=== PATIENT | female | born 1980 | race Caucasian/White ===

== ENCOUNTER 2019-12-06 15:39 | Outpatient (REF) | payer OTHER, SELFPAY ==
[2019-12-06 17:08] LABS: COVID-19 Test Negative (Negative)
== END 2019-12-06 15:40 | disposition home or self-care (01) ==
LOC: HO.LAB 15:39
PROVIDERS: Visit Provider Internal Medicine
DX: Z20.828 Contact with and (suspected) exposure to other viral communicable diseases (principal)
CPT/HCPCS: 87635

== ENCOUNTER 2019-12-23 11:00 | Outpatient (REF) | payer OTHER, SELFPAY ==
[2019-12-23 11:20] LABS: COVID-19 Test Negative (Negative)
== END 2019-12-23 11:01 | disposition home or self-care (01) ==
LOC: HO.LAB 11:00
PROVIDERS: PCP Pediatrics; Visit Provider Internal Medicine
DX: Z20.828 Contact with and (suspected) exposure to other viral communicable diseases (principal)
CPT/HCPCS: 87635; C9803

== ENCOUNTER 2020-03-02 08:49 | Outpatient (REF) | payer OTHER, SELFPAY ==
[2020-03-02 09:12] LABS: COVID-19 Test Negative (Negative)
== END 2020-03-02 08:50 | disposition home or self-care (01) ==
LOC: HO.EMPCOV 08:49
PROVIDERS: PCP Pediatrics; Visit Provider Internal Medicine
DX: Z20.822 Contact with and (suspected) exposure to COVID-19 (principal)
CPT/HCPCS: 36415; 87635; C9803

== ENCOUNTER 2020-07-28 14:45 | Outpatient (REF) | payer BC, SELFPAY ==
[2020-07-28 15:28] LABS: MANUAL DIFF FLAG NO
[2020-07-28 15:34] LABS: Basophils Percent Auto 0.5 % (0-2); Eosinophils Percent Auto 0.5 % (0-4); Hematocrit 40.5 % (37-47); Hemoglobin 13.8 g/dl (12.0-16.0); Imm Gran Abs Auto 0.02 X10*3/uL (0.00-0.03); Imm Gran Pct Auto 0.5 % (0.0-0.4); Lymphocytes Absolute Auto 1.4 X10*3/uL (1.2-4.9); Lymphocytes Percent Auto 35.1 % (20-40); Mean Corpuscular HGB Conc 34.1 g/dl (31.0-35.0); Mean Corpuscular Hemoglobin 30.4 pg (27.0-33.0); Mean Corpuscular Volume 89.2 fL (80-98); Mean Platelet Volume 10.7 fL (9.4-12.3); Monocytes Absolute Auto 0.3 X10*3/uL (0.1-1.2); Monocytes Percent Auto 7.9 % (2-11); Neutrophils Absolute Auto 2.3 X10*3/uL (2.0-8.3); Neutrophils Percent Auto 55.5 % (45-73); Platelet Count 231 X10*3/uL (160-400); Red Blood Count 4.54 X10*6/uL (4.20-5.50); Red Cell Distribution Width 12.4 % (11.0-16.0); White Blood Count 4.1 X10*3/uL (4.8-10.8)
[2020-07-28 16:00] LABS: Alanine Aminotransferase 32 U/L (0-31); Albumin Level 4.2 g/dL (3.5-5.0); Alkaline Phosphatase 50 U/L (39-117); Aspartate Amino Transferase 29 U/L (5-31); Bilirubin Direct < 0.2 mg/dL (0.0-0.5); Bilirubin Total 0.3 mg/dL (0.0-1.0); Blood Urea Nitrogen 12 mg/dL (9-16); C Reactive Protein 0.62 mg/dL (< or = 0.50); Estimated Glomerular Filt Rate > 60; Total Protein 6.9 g/dL (6.5-8.0)
[2020-07-28 16:32] LABS: Carcinoembryonic Antigen < 0.50 ng/mL
[2020-07-28 17:56] LABS: Erythrocyte Sedimentation Rate 13 MM/HR (0-20)
== END 2020-07-28 14:46 | disposition home or self-care (01) ==
LOC: HO.LAB 14:45
PROVIDERS: PCP Pediatrics; Visit Provider Internal Medicine
DX: R10.9 Unspecified abdominal pain (principal); R19.7 Diarrhea, unspecified; R16.0 Hepatomegaly, not elsewhere classified
CPT/HCPCS: 36415; 80076; 82105; 82378; 82565; 84520; 85025; 85652; 86140

== ENCOUNTER 2020-08-10 18:02 | Outpatient (REF) | payer BC, SELFPAY | END 2020-08-10 18:03 | disposition home or self-care (01) | LOC: HO.LNP 18:02 | PROVIDERS: Visit Provider Internal Medicine | DX: R10.9 Unspecified abdominal pain (principal); R16.0 Hepatomegaly, not elsewhere classified; R19.7 Diarrhea, unspecified | CPT/HCPCS: 87045; 87046; 87329; 87493; 89055 ==

== ENCOUNTER 2020-08-21 15:57 | Outpatient (REF) | payer BC, SELFPAY ==
--- NOTE | ~2020-08-21 | MR_ITS ---
EXAMINATION: MR ABDOMEN WITHOUT AND WITH CONTRAST CLINICAL INFORMATION: Liver mass. COMPARISON: Previous MRI October 2014, CT of the abdomen and pelvis October 2014 and abdominal ultrasound December 2007 TECHNIQUE: MR abdomen was performed without and with use of 5.5 mL intravenous Gadavist gadolinium contrast. Postcontrast images are performed in multiphase dynamic sequences. Imaging was performed in 3 planes. FINDINGS: LUNG BASES: The visualized lung bases are unremarkable. LIVER, GALLBLADDER, AND BILIARY TREE: The liver is normal in size, shape and contour. There is a 4.5 x 4.3 x 3.5 cm lesion in the medial segment of the left lobe of the liver. This is slightly low signal on T1-weighted sequences, similar in signal to the liver on T2-weighted sequences. This demonstrates early arterial phase enhancement and washout. There is again question of a nonenhancing central scar. This is unchanged in size and enhancement characteristics compared to 2015 exam. Again, this probably represents FNH or adenoma. There are 3 small cysts seen in the left lobe of the liver measuring 1.4 cm and 1.3 x 1.8 cm in the lateral segment of the left lobe and 6 mm in the medial segment of the left lobe. No other focal liver lesion is seen. The gallbladder is contracted. There is no biliary duct dilatation. The spleen is unremarkable. The pancreas is unremarkable. The adrenal glands and kidneys are unremarkable. Visualized bowel is unremarkable. No ascites or adenopathy is seen. No hernia is seen. The lung apices are clear. There are bilateral breast implants. Bony structures are unremarkable. MR/MR abdomen wo/w con IMPRESSION: Stable lesion in the medial segment of the left lobe of the liver probably representing FNH or adenoma. Small liver cysts.
== END 2020-08-21 15:58 | disposition home or self-care (01) ==
LOC: HO.MRI 15:57
PROVIDERS: PCP Pediatrics; Visit Provider Internal Medicine
DX: R16.0 Hepatomegaly, not elsewhere classified (principal)
CPT/HCPCS: 74183; A9585

== ENCOUNTER 2020-10-14 08:42 | Day surgery (SDC) | payer BC, SELFPAY ==
--- NOTE | 2020-09-29 08:10 | P.CONAN_ITS ---
Documented by User: Mónica Sims NP 09/29/20 08:11 HPI - Anesthesia Eval Consult details Narrative: 40yo F for Upper Endoscopy and Colonoscopy PMFSH Past Medical History Medical History Anxiety Depression Fibromyalgia Hiatal hernia Liver mass, left lobe Bustillos syndrome Surgical History Surgical History History of tonsillectomy and adenoidectomy Hx of breast augmentation Hx of section Hx of colonoscopy Hx of esophagogastroduodenoscopy Social History Social History Alcohol intake: current Alcohol intake frequency: 0-2 drinks per day Alcohol type: wine Patient Tobacco Use Status: Never used Tobacco Use of substances other than those prescribed or required for medical reasons: Yes Substance Use Type Other:: CBD gummies Substance Use Frequency: Occasionally Are you DNR?: No Advance Directives: No Advance Directives Information Provided: No Meds Allergies Allergy/AdvReac Type Severity Reaction Status Date / Time codeine [CODEINE] Allergy Unknown VOMITING Verified 10/14/20 09:25 Home Medications Medication Instructions Recorded Confirmed Last Taken Type Fish Oil 09/23/20 Unknown History Probiotic 09/23/20 Unknown History Vitamin C 09/23/20 Unknown History acetaminophen 500 mg tablet 1,000 mg PO Q6H PRN 09/23/20 09/23/20 Unknown History bupropion HCl 150 mg tablet,12 hr 1 tab PO BID 09/23/20 09/23/20 Unknown History sustained-release desogestrel 0.15 mg-ethinyl 1 tab PO DAILY 09/23/20 09/23/20 Unknown History estradiol 0.03 mg tablet (Apri) hydroxyzine HCl 25 mg tablet 1 tab PO TID PRN 09/23/20 09/23/20 Unknown History ibuprofen 09/23/20 09/23/20 Unknown History multivitamin 1 tab PO DAILY 09/23/20 09/23/20 Unknown History omeprazole 20 mg capsule,delayed 1 cap PO DAILY 09/23/20 09/23/20 Unknown History release Exam Exam Date and Time: September 29, 2020 0810 Pertinent Lab Results Pertinent Lab Results: Laboratory Tests 07/28/20 07/28/20 15:05 15:05 WBC 4.1 L Hgb 13.8 Hct 40.5 Plt Count 231 BUN 12 Creatinine 0.80 Assessment and Plan Assessment Anesthesia Assessment: Chart Reviewed Documented by User: Ana Ovalle MD 10/14/20 10:34 [facility] Past Medical History Medical History Anxiety Depression Fibromyalgia Hiatal hernia Liver mass, left lobe Bustillos syndrome Surgical History Surgical History History of tonsillectomy and adenoidectomy Hx of breast augmentation Hx of section Hx of colonoscopy Hx of esophagogastroduodenoscopy History of Problems with Anesthesia: No Social History Social History Alcohol intake: current Alcohol intake frequency: 0-2 drinks per day Alcohol type: wine Patient Tobacco Use Status: Never used Tobacco Use of substances other than those prescribed or required for medical reasons: Yes Substance Use Type Other:: CBD gummies Substance Use Frequency: Occasionally Are you DNR?: No Advance Directives: No Advance Directives Information Provided: No Meds Allergies Allergy/AdvReac Type Severity Reaction Status Date / Time codeine [CODEINE] Allergy Unknown VOMITING Verified 10/14/20 09:25 Home Medications Medication Instructions Recorded Confirmed Last Taken Type Fish Oil 09/23/20 Unknown History Probiotic 09/23/20 Unknown History Vitamin C 09/23/20 Unknown History acetaminophen 500 mg tablet 1,000 mg PO Q6H PRN 09/23/20 09/23/20 Unknown History bupropion HCl 150 mg tablet,12 hr 1 tab PO BID 09/23/20 09/23/20 Unknown History sustained-release desogestrel 0.15 mg-ethinyl 1 tab PO DAILY 09/23/20 09/23/20 Unknown History estradiol 0.03 mg tablet (Apri) hydroxyzine HCl 25 mg tablet 1 tab PO TID PRN 09/23/20 09/23/20 Unknown History ibuprofen 09/23/20 09/23/20 Unknown History multivitamin 1 tab PO DAILY 09/23/20 09/23/20 Unknown History omeprazole 20 mg capsule,delayed 1 cap PO DAILY 09/23/20 09/23/20 Unknown History release Exam Airway Mallampati Class: I TM Dist: >3cm Neck ROM: Full Loose/Missing/Broken Teeth: No Heart: RRR Lungs: CTA Assessment and Plan Assessment Anesthesia Assessment: Anesthesia Plan Discussed Final Anesthetic Review History of Problems with Anesthesia: No NPO: Yes ASA Class: II Final Preanesthetic Review: Meds/Allgs Chart Reviewed, Consent Obtained/Reviewed and Anes Risks/Benef Reviewed Patient Risk: Low Procedure Risk: Intermediate Anesthetic Plan Anesthetic Plan: MAC: Disposition: Standard PACU
[2020-10-14 09:14] VITALS: BP 118/81; PULSE 92; RESP 18; TEMP 37.1; O2SAT 99; BMI 23.6
[2020-10-14 09:15] LABS: UPreg QC Valid YES; Urine Pregnancy NEGATIVE (NEGATIVE)
[2020-10-14] MEDS: Lactated Ringers 1,000 ML 100 ML IVCONT (09:24)
[2020-10-14 11:00] VITALS: BP 100/62; PULSE 72; RESP 18; TEMP 36.2; O2SAT 100
--- NOTE | 2020-10-14 11:05 | PM.OP ---
Brief Operative Note Date of Service: 10/14/20 Pre-op diagnosis: + Bustillos syndrome genetic test, Screening Post-op diagnosis: other (Hiatal hernia, Internal hemorrhoids) Procedure: EGD and Colonoscopy to the cecum and TI Surgeon: Rogelio Elaine Anesthesia: MAC Was an Atomic Physics Teacher used for this Procedure?: No Estimated blood loss (mL): 0 Pathology: none sent Condition: stable Disposition: PACU
[2020-10-14 11:15] VITALS: BP 113/70; PULSE 66; RESP 16; TEMP 36.3; O2SAT 99
--- NOTE | 2020-10-14 11:32 | OP_ITS ---
SURGEON: Rogelio Elaine MD INDICATIONS: The patient presents for evaluation of positive genetic testing for Bustillos syndrome, colorectal cancer screening, and family history of uterine cancer and head and neck cancer. Full consent has been obtained from her for both procedures, including risks of bleeding and perforation. PREOPERATIVE DIAGNOSIS: POSTOPERATIVE DIAGNOSIS: PROCEDURE PERFORMED: Esophagogastroduodenoscopy and colonoscopy to the cecum and terminal ileum. ESTIMATED BLOOD LOSS: COMPLICATIONS: ANESTHESIA: Monitored anesthesia care. ASSISTANTS: SPECIMENS: PREOPERATIVE DIAGNOSES: Genetic testing positive for Bustillos syndrome and colorectal cancer screening. POSTOPERATIVE DIAGNOSES: Genetic testing positive for Bustillos syndrome and colorectal cancer screening, hiatal hernia, normal major papilla, internal hemorrhoids. DESCRIPTION OF PROCEDURE: The patient was placed in the left lateral decubitus position. The Olympus therapeutic video duodenoscope was passed in the posterior oropharynx and upper esophagus. The scope entered into the stomach and was advanced to pylorus. The duodenum was cannulated to the descending portion. The region of the major papilla was visualized and appeared completely normal. There was no sign of any mass nor ulceration. The scope was then withdrawn back into the stomach and then withdrawn from the patient. The Olympus video gastroscope was passed in the posterior oropharynx and upper esophagus under direct vision. The scope was passed slowly into the distal esophagus. The gastroesophageal junction appeared normal at 35 cm. There was a small hiatal hernia. The scope was advanced to pylorus and duodenum was cannulated to the descending portion. The duodenum including the bulb appeared normal without mass or ulceration. The scope was withdrawn back into the stomach. The gastric antrum and body appeared normal with good peristalsis. The scope was retroflexed visualizing the proximal stomach carefully, which appeared normal, without any sign of mass or ulceration. The scope was straightened out and withdrawn back into the esophagus. The esophageal mucosa appeared normal. The scope was withdrawn from the patient. She was turned around for colonoscopy. The digital rectal exam revealed no abnormalities. The Olympus video pediatric colonoscope was entered into the rectum and advanced easily to the cecum. Once in the cecum, I did identify normal-appearing cecal pouch with appendiceal orifice and a normal-appearing ileocecal valve. The terminal ileum was cannulated and appeared normal. Scope was withdrawn back in the colon. The entire cecum and ileocecal valve appeared normal. The scope was slowly withdrawn assessing all mucosal surfaces carefully. Preparation was excellent. I did not visualize any sign of polyps, colitis, nor angiodysplasia. In the rectum, scope was retroflexed visualizing internal hemorrhoids, but no other pathology. The rectal mucosa appeared normal. The scope was straightened out and withdrawn from the patient. She tolerated both procedures well and was returned to the recovery area in stable condition. IMPRESSION: 1. Normal major papilla. 2. Small hiatal hernia. 3. Internal hemorrhoids. PLAN: I would recommend a repeat upper endoscopy and colonoscopy in 5 years. Her recent MRI of the liver revealed a stable known hepatic lesion. As such, I do not think she will need any further imaging of her liver given the stability of the liver lesion for many years now. She will see me in the interim on a p.r.n. basis. MD FELIPA Devine/VERO / [phone]
== END 2020-10-14 12:16 | disposition home or self-care (01) ==
PROVIDERS: Nurse Practitioner; PCP Pediatrics; Visit Provider Internal Medicine
PROC: (CPT 45378; principal; 2020-10-14 09:50)
DX: Z12.11 Encounter for screening for malignant neoplasm of colon (principal); K64.8 Other hemorrhoids; K59.4 Anal spasm; R19.7 Diarrhea, unspecified; Z15.09 Genetic susceptibility to other malignant neoplasm; R10.9 Unspecified abdominal pain; N94.10 Unspecified dyspareunia; K76.89 Other specified diseases of liver; K44.9 Diaphragmatic hernia without obstruction or gangrene; F32.9 Major depressive disorder, single episode, unspecified; Z79.899 Other long term (current) drug therapy; Z80.49 Family history of malignant neoplasm of other genital organs; Z80.8 Family history of malignant neoplasm of other organs or systems
CPT/HCPCS: 45378; 43235; 81025; J2250; J2405

== ENCOUNTER → 2021-06-15 14:45 | Outpatient (BNVA) | payer OTHER, SELFPAY | PROVIDERS: PCP Pediatrics; Visit Provider Internal Medicine | DX: Z13.89 Encounter for screening for other disorder (principal) | CPT/HCPCS: 99202 ==

== ENCOUNTER → 2021-06-16 11:10 | Outpatient (BNVA) | payer OTHER, SELFPAY | PROVIDERS: PCP Pediatrics; Visit Provider Physician Assistant | DX: Z13.89 Encounter for screening for other disorder (principal) | CPT/HCPCS: 99213 ==

== ENCOUNTER → 2021-06-21 08:36 | Outpatient (BNVA) | payer OTHER, SELFPAY | PROVIDERS: PCP Pediatrics; Visit Provider Internal Medicine | DX: Z13.89 Encounter for screening for other disorder (principal) | CPT/HCPCS: 99213 ==

== ENCOUNTER → 2021-07-16 13:56 | Outpatient (BNVA) | payer OTHER, SELFPAY | PROVIDERS: PCP Pediatrics; Visit Provider Internal Medicine | DX: Z13.89 Encounter for screening for other disorder (principal) | CPT/HCPCS: 99213 ==

== ENCOUNTER 2021-07-22 08:00 | Outpatient (RCR) | payer OTHER, SELFPAY ==
--- NOTE | 2021-06-28 14:31 | MHC.PT.EP ---
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 REPORTS PAIN IMMEDIATELY L UT WITH SOME PARESTHESIA L PINKY FINGER (WHICH HAS SINCE RESOLVED). Pt REPORTS OVERALL BETTER AT THIS TIME, BUT STILL SOME LIMITED CERV ROM AND FEELS LIKE SHE HAS A PINCHED NERVE . 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 PRESENTS TO PT WITH LIMITED END RANGE CERVICAL ROM, PAIN NECK/UPPER BACK WITH DECREASED UPPER BODY STRENGTH. SHOULD BENEFIT FROM PT TO ADDRESS THESE ISSUES. Frequency and Duration: The patient will be seen 2X/WK X 4 WKS Short Term Goals: 1. INCREASED POSTURE AWARENESS AND AWARENESS NECK CARE 2. Pt TO PERFORM 2-3 TASKS WITH PROPER BODY MECH 3. RTW FD Mcc Goals: 1. I HEP WITH DC EX PLAN 2. INCREASED CERV ROM 5 DEGREES T/O 3. DECREASED NECK PAIN AT LEAST 50% WITH ADLS 4. NO PARESTHESIA REPORTED Treatment Plan: Modalities to reduce pain, spasms and effusion. Manual therapy to restore motion and function. Therapeutic exercise to improve strength and flexibility. Neuromuscular re-education for posture and balance. Therapeutic activities to return to functional activities of daily living. Electronically signed by: QING LEIVA PT Please sign and return to therapist. Thank you for your referral.
--- NOTE | 2021-09-28 13:24 | MHC.PT.DC ---
[facility] [place] Office [place] [facility] [place] [facility] [address] Sqaib Malhotra [address] [phone] F: [phone] F: [phone] F: [phone] F: [phone] Physical Therapy Discharge Report Diagnosis: L TRAPEZIUS STRAIN Date of Surgery: NA Date of Evaluation: 06/28/21 Date of Discharge: 09/28/21 Treatments to Date: 5 Cancellations to Date: No Shows to Date: Discharge Status: Independent with HEP Patient Elected to Stop Recommend MD Follow-up Discharge Summary: PER ASSESSMENT FROM LAST PT SESSION ON 07/22/21 BY DEANDRE MCKEON PT 'Pt BENEFITTED FROM MOD VC/ TC TO ENHANCE HER SELF AWARENESS AND SELF CORRECTION FOR 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 IT HAS BEEN OVER 2 MONTHS SINCE LAST APPT FOR HER UT, SO WILL DC WITH HOME PROGRAM AT THIS TIME Electronically signed by: QING LEIVA PT Please sign and return to therapist. Thank you for your referral.
== END 2021-09-28 13:25 | disposition home or self-care (01) ==
LOC: HO.PT 08:00
PROVIDERS: Visit Provider Internal Medicine
DX: S46.812D Strain of other muscles, fascia and tendons at shoulder and upper arm level, left arm, subsequent encounter (principal)
CPT/HCPCS: 97014; 97110; 97140; 97161

== ENCOUNTER 2021-07-25 09:33 | Emergency (ER) | payer BC, SELFPAY ==
--- NOTE | ~2021-07-25 | CT_ITS ---
EXAMINATION: CT ANGIOGRAM HEAD CT ANGIOGRAM NECK CLINICAL INFORMATION: Occipital headache. Neck pain. Bilateral arm numbness. COMPARISON: None available. TECHNIQUE: Initial noncontrast outside sales representative imaging of the head and neck was performed. Noncontrast head CT was also performed. Test bolus sequences followed by intravenous administration 70 mL of Omnipaque 350. Helical imaging was performed in the axial plane from the aortic arch to the skull vertex. Delayed postcontrast imaging of the head was also performed. The data was processed at the operating room surgical technologist's workstation for generation of MIP sequences. Angled MIPs and volume rendered reformatted images were also generated at an offline 3D workstation. Stenoses are assessed in accordance with NASCET criteria unless otherwise indicated. This CT examination was performed using dose optimization techniques as appropriate, variously including the following: *Automated exposure control. *Adjustment of mA and/or kV according to patient size (this includes techniques or standardized protocols for targeted exams where dose is matched to indication/reason for exam; i.e. extremities or head). *Use of iterative reconstruction technique. DLP: 2039 mGy-cm FINDINGS: CT Head: There is no evidence of acute intracranial hemorrhage or edematous territorial infarction. There is no abnormal attenuation within the brain parenchyma. Murry-white matter differentiation is preserved. The ventricles are normal in size and configuration. No evidence for obstructive hydrocephalus. The cerebellar tonsils are positioned at the level the foramen magnum. No abnormal mass effect or midline shift. No extra-axial fluid collections. No pathologic intra-axial enhancement or regional oligemia. No acute soft tissue or osseous abnormalities. Mild mucosal thickening of the paranasal sinuses. The mastoid air cells and middle ear cavities are clear. CT Neck: The thyroid gland and remaining cervical soft tissues are within normal limits. Advanced degenerative disc disease at C5-C6. Moderate degenerative disc disease at C4-C5. Associated disc-osteophyte complex formation with superimposed disc herniations. There appears to be mild to moderate spinal canal stenoses at C4-C5 and C5-C6. Facet and uncovertebral joint arthropathy leads osseous encroachment on the neural foramina at C5-C6. CT Upper Chest: The visualized lung apices and upper mediastinum are within normal limits. Neck CTA: Aortic Arch: Normal contour and caliber. Classic 3 vessel branching pattern of the aortic arch. Great Vessel Origins: No significant stenosis of the branch origins. Right Common Carotid Artery: No focal stenosis or occlusion. Cervical Right Internal Carotid Artery: Normal opacification without focal stenosis or occlusion. Left Common Carotid Artery: No focal stenosis or occlusion. Cervical Left Internal Carotid Artery: Normal opacification without focal stenosis or occlusion. Cervical Right Vertebral Artery: No focal stenosis or occlusion. Cervical Left Vertebral Artery: Mildly dominant. No focal stenosis or occlusion. Brain CTA: Intracranial Internal Carotid Arteries: No focal stenosis or occlusion. Right Anterior Cerebral Artery: Normal A1 segment. Normal opacification of the distal HONORIO segments. Left Anterior Cerebral Artery: Normal A1 segment. Normal opacification of the distal HONORIO segments. Anterior Communicating Artery: Normal. Right Middle Cerebral Artery: Normal M1 segment of the MCA without focal stenosis or occlusion. Normal arborization of the distal segments. Left Middle Cerebral Artery: Normal M1 segment of the MCA without focal stenosis or occlusion. Normal arborization of the distal segments. Right Vertebral Artery: Normal V4 segment. Normal opacification of the proximal segments of the posterior inferior cerebellar artery. Left Vertebral Artery: Normal V4 segment. Normal opacification of the proximal segments of the posterior inferior cerebellar artery. Basilar Artery: Normal without focal stenosis or occlusion. Normal appearance of the proximal superior cerebellar arteries. Right Posterior Cerebral Artery: Normal P1 segment. Normal opacification of the distal SHADE CUTTER segments. Left Posterior Cerebral Artery: Normal P1 segment. Normal opacification of the distal SHADE CUTTER segments. Right dominant transverse/sigmoid sinuses. The left-sided transverse/sigmoid sinuses are diminutive. Otherwise, normal opacification of the superior sagittal, straight, transverse, and sigmoid sinuses. CT/CT angio head neck IMPRESSION: 1. No evidence of acute intracranial hemorrhage or edematous territorial infarction. 2. CTA of the head and neck without proximal occlusion or flow-limiting stenosis. 3. 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 Most notably, there appear to be mild to moderate spinal canal stenoses at C4-C5 and C5-C6.
[2021-07-25 09:36] VITALS: BP 147/89; PULSE 99; RESP 16; TEMP 36.8; O2SAT 99; BMI 23.2
[2021-07-25 10:09] LABS: MANUAL DIFF FLAG NO
[2021-07-25 10:12] LABS: Basophils Percent Auto 0.6 % (0-2); Eosinophils Absolute Auto 0.1 X10*3/uL (0.0-0.4); Eosinophils Percent Auto 1.4 % (0-4); Hematocrit 38.7 % (37.0-47.0); Hemoglobin 12.9 g/dl (12.0-16.0); Imm Gran Abs Auto 0.02 X10*3/uL (0.00-0.03); Imm Gran Pct Auto 0.4 % (0.0-0.4); Lymphocytes Absolute Auto 1.7 X10*3/uL (1.2-4.9); Lymphocytes Percent Auto 34.2 % (20-40); Mean Corpuscular HGB Conc 33.3 g/dl (31.0-35.0); Mean Corpuscular Hemoglobin 30.4 pg (27.0-33.0); Mean Corpuscular Volume 91.1 fL (80.0-98.0); Monocytes Absolute Auto 0.3 X10*3/uL (0.1-1.2); Monocytes Percent Auto 6.1 % (2-11); Neutrophils Absolute Auto 2.9 x10*3/uL (2.0-8.3); Neutrophils Percent Auto 57.3 % (45-73); Platelet Count 242 X10*3/uL (160-400); Red Blood Count 4.25 X10*6/uL (4.20-5.50); Red Cell Distribution Width 12.8 % (11.0-16.0); White Blood Count 5.1 X10*3/uL (4.8-10.8)
[2021-07-25 10:29] LABS: Anion Gap 12 (12-20); Blood Urea Nitrogen 18 mg/dL (9-16); Calcium 9.4 mg/dL (8.4-10.2); Carbon Dioxide 26 mmol/L (22-29); Chloride 104 mmol/L (96-108); Estimated Glomerular Filt Rate > 60; Glucose Random 97 mg/dL (60-115); Potassium 4.4 mmol/L (3.3-5.1); Sodium 138 mmol/L (135-145)
[2021-07-25 10:35] LABS: INTERNATIONAL NORM RATIO 1.1 (0.9-1.1); Prothrombin Time 12.5 SEC (9.9-13.0)
[2021-07-25 10:48] VITALS: BP 126/81; PULSE 84; RESP 16; O2SAT 100
[2021-07-25] MEDS: iohexoL 350 MG/ML 100 ML INFUS..BTL IV (11:21)
--- NOTE | 2021-07-25 11:39 | ED_ITS ---
HPI - Headache General Chief Complaint: Headache Stated Complaint: Neck Pain Numbness Time Seen by Provider: 07/25/21 09:46 Source: patient Mode of arrival: ambulatory History of Present Illness HPI Narrative: 41-year-old female with a past medical history of anxiety, depression, fibromyalgia, Bustillos syndrome, presenting to the ED complaining of posterior headache/neck pain with associated numbness/tingling down bilateral arms > left and right foot worsening since Monday. 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 Reports symptoms initiated after chiropractor visit where they are cracking her neck. Denies vision change/loss, weakness, urinary incontinence/retention, direct injury/trauma MD elicited complaint: headache Related Data Home Medications Medication Instructions Recorded Confirmed Fish Oil 09/23/20 Probiotic 09/23/20 Vitamin C 09/23/20 acetaminophen 500 mg tablet 1,000 mg PO Q6H PRN Pain, Mild 09/23/20 09/23/20 bupropion HCl 150 mg tablet,12 hr 1 tab PO BID 09/23/20 09/23/20 sustained-release desogestrel 0.15 mg-ethinyl 1 tab PO DAILY 09/23/20 09/23/20 estradiol 0.03 mg tablet (Apri) hydroxyzine HCl 25 mg tablet 1 tab PO TID PRN anxiety 09/23/20 09/23/20 ibuprofen 09/23/20 09/23/20 multivitamin 1 tab PO DAILY 09/23/20 09/23/20 omeprazole 20 mg capsule,delayed 1 cap PO DAILY 09/23/20 09/23/20 release Previous Rx's Medication Instructions Recorded cyclobenzaprine 5 mg tablet 5 mg PO Q8H PRN pain (scale score 07/25/21 7-10) 5 days #14 tabs lidocaine 5 % topical patch 1 patch topical DAILY PRN pain #30 07/25/21 (Lidoderm) ea Allergies Allergy/AdvReac Type Severity Reaction Status Date / Time codeine [CODEINE] Allergy Unknown VOMITING Verified 10/14/20 09:25 Review of Systems Review of Systems: Constitutional: No Fever, No Chills, No Fatigue, No Malaise ENT/Mouth: No Ear Pain, No Nasal Congestion, No Sinus Pain, No Hoarseness, No sore throat, No Rhinorrhea, No Swallowing Difficulty Eyes: No Eye Pain, No Swelling, No Redness, No Vision Changes Cardiovascular: No Chest Pain, No SOB, No Edema, No Palpitations Respiratory: No Cough, No Sputum, No Dyspnea Gastrointestinal: No Nausea, No Vomiting, No Diarrhea, No Constipation, No Abdominal pain Genitourinary: No Dysuria, No Urinary Frequency, No Hematuria, No Urinary Incontinence/retention, No Flank Pain Musculoskeletal: No joint pain, No Myalgias, No Joint Swelling Skin: No Skin Lesions, No rash Neuro: No Weakness, + Numbness, + Paresthesias, No Loss of Consciousness, No Dizziness, +o Headache Yes all other systems are reviewed and are negative Neurologic: Denies Abnormal speech present [facility] Past Medical History Attestation statement: The following information was validated with the patient. Medical History Anxiety Depression Fibromyalgia Hiatal hernia Liver mass, left lobe Bustillos syndrome Surgical History History of tonsillectomy and adenoidectomy Hx of breast augmentation Hx of section Hx of colonoscopy Hx of esophagogastroduodenoscopy Social History Social History Alcohol intake: current Alcohol intake frequency: 0-2 drinks per day Alcohol type: wine Patient Tobacco Use Status: Never used Tobacco Advance Directives: No Advance Directives Information Provided: No Physical Exam Vital Signs: Vital Signs: Last Vital Signs Temp 98.3 F 07/25/21 09:36 Pulse 84 07/25/21 10:48 Resp 16 07/25/21 10:48 BP 126/81 07/25/21 10:48 Pulse Ox 100 07/25/21 10:48 O2 Del Method 07/25/21 10:48 BMI result Body Mass Index 23.2 Const: General: cooperative, healthy appearing and no acute distress Orientation/consciousness: patient oriented x3 Limitations: no limitations HEENT: Head: Yes normal to inspection and Yes atraumatic Ears: hearing grossly normal bilaterally General nose exam: Normal external nose present Face and sinus: Yes normal facial exam Eyes: General: appearance normal, both eyes and all related structures EOM: EOMs intact bilaterally Neck: Other: No midline cervical spinous tenderness. Bilateral paraspinal and bilateral trapezius muscle tenderness to palpation Neck: Yes normal visual inspection, Yes full ROM, Yes no meningeal signs, No anterior neck swelling and No torticollis Resp: Effort & Inspection: normal respiratory effort and no respiratory distress Auscultation: clear to auscultation bilaterally Cardio: Rate: regular rate Heart sounds: S1 normal heart sound present and S2 normal heart sound present Peripheral pulses: radial pulses present GI: Inspection: Yes normal to inspection : General: Yes no CVA tenderness Back/Spine/Pelvis: Other: No midline thoracic/lumbar spinous tenderness/step-off or deformity Back: no CV A tenderness Skin: Rashes: no rashes Wounds: no wounds Neuro: General: patient oriented x3, gait normal, tone normal, moves all extremities, no meningeal signs, no focal motor deficits and CN's II-XI intact bilaterally Cognition (Neuro): normal cognition Speech: No Abnormal speech present Gait exam (Neuro): Normal gait present Motor exam (neuro): 5/5 motor strength present throughout Extrem: General: Yes normal to inspection Course Course Course Narrative: -1144--labs unremarkable CT angio head neck IMPRESSION: 1. No evidence of acute intracranial hemorrhage or edematous territorial infarction. 2. CTA of the head and neck without proximal occlusion or flow-limiting stenosis. 3. 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 Most notably, there appear to be mild to moderate spinal canal stenoses at C4-C5 and C5-C6. >> results discussed with patient including worrisome signs and symptoms and strict return precautions & needed close follow-up with PCP MDM - Headache MDM Narrative Medical decision making narrative: 41-year-old female with a past medical history of anxiety, depression, fibromyalgia, Bustillos syndrome, presenting to the ED complaining of posterior headache/neck pain with associated numbness/tingling down bilateral arms > left and right foot worsening since Monday. On exam vital signs stable, NAD, no midline spinous tenderness throughout, no focal neuro deficits. Concern for cervical dissection vs MSK pain/strain vs radiculopathy. Lower concern for fracture Plan: Labs, head and neck CTA Differential Diagnosis Differential diagnosis: Likely migraine and headache Medical Records Attestation: I reviewed the patient's medical records. Lab Data Attestation: I reviewed the patient's lab results. Result diagrams: 07/25/21 10:03 07/25/21 10:03 Labs: Lab Results 07/25/21 07/25/21 07/25/21 Range/Units 10:03 10:03 10:03 WBC 5.1 (4.8-10.8) X10*3/uL RBC 4.25 (4.20-5.50) X10*6/uL Hgb 12.9 (12.0-16.0) g/dl Hct 38.7 (37.0-47.0) % MCV 91.1 (80.0-98.0) fL MCH 30.4 (27.0-33.0) pg MCHC 33.3 (31.0-35.0) g/dl RDW 12.8 (11.0-16.0) % Plt Count 242 (160-400) X10*3/uL MPV 10.0 (9.4-12.3) fL Immature Gran % (Auto) 0.4 (0.0-0.4) % Neut % (Auto) 57.3 (45-73) % Lymph % (Auto) 34.2 (20-40) % Esmeralda % (Auto) 6.1 (2-11) % Eos % (Auto) 1.4 (0-4) % Baso % (Auto) 0.6 (0-2) % Lymph # (Auto) 1.7 (1.2-4.9) X10*3/uL Esmeralda # (Auto) 0.3 (0.1-1.2) X10*3/uL Eos # (Auto) 0.1 (0.0-0.4) X10*3/uL Baso # (Auto) 0.0 (0.0-0.2) X10*3/uL Abs Immat Gran (auto) 0.02 (0.00-0.03) X10*3/uL Absolute Neuts (auto) 2.9 (2.0-8.3) x10*3/uL Absolute Nucleated RBC 0.000 (0.0-0.012) X10*3/uL Nucleated RBC % (auto) 0.0 (0.0-0.2) /100WBC PT 12.5 (9.9-13.0) SEC INR 1.1 (0.9-1.1) Sodium 138 (135-145) mmol/L Potassium 4.4 (3.3-5.1) mmol/L Chloride 104 (96-108) mmol/L Carbon Dioxide 26 (22-29) mmol/L Anion Gap 12 (12-20) BUN 18 H (9-16) mg/dL Creatinine 0.75 (0.5-1.4) mg/dL Estim Creat Clear Calc 76.0 Estimated GFR > 60 Random Glucose 97 (60-115) mg/dL Calcium 9.4 (8.4-10.2) mg/dL Discharge Plan Discharge Clinical Impression: Arthropathy of cervical spine, Paresthesia Patient Disposition: Home, Self-Care Instructions: Neck Pain (ED) Additional Instructions: A CT scan does not show any evidence of intracranial hemorrhage were vessel occlusion. You do have some [id number] canal stenosis. Please follow-up with her primary care doctor, and spine as needed Continue taking previously prescribed naproxen. In addition take Flexeril which is a muscle relaxer, take at night as it makes you drowsy, do not drive, drink alcohol, or operate machinery while taking. You may also apply Lidoderm patch es. Rest. Apply heat. If symptoms persist or worsen please return to the emergency department [facility] [address] [place] [address] [phone] Prescriptions: New lidocaine [Lidoderm] 5 % adhesive patch,medicated 1 patch topical DAILY MDD remove after 12 hours PRN (Reason: pain) Qty: 30 0RF Rx Instructions: leave on most painful area for up to 12 hrs cyclobenzaprine 5 mg tablet 5 mg PO Q8H PRN (Reason: pain (scale score 7-10)) 5 Days Qty: 14 0RF No Action multivitamin Tablet 1 tab PO DAILY bupropion HCl 150 mg tablet sustained-release 12 hr 1 tab PO BID desogestrel-ethinyl estradiol [Apri] 0.15-0.03 mg tablet 1 tab PO DAILY acetaminophen 500 mg Tablet 1,000 mg PO Q6H PRN (Reason: Pain, Mild) omeprazole 20 mg capsule,delayed release(DR/EC) 1 cap PO DAILY hydroxyzine HCl 25 mg tablet 1 tab PO TID PRN (Reason: anxiety) Fish Oil Probiotic Vitamin C ibuprofen Referrals: Jean Barger MD [Primary Care Provider] - Stand Alone Forms: Work/School Release
== END 2021-07-25 13:17 | disposition home or self-care (01) ==
PROVIDERS: Physician Assistant; Emergency Provider Emergency Medicine; PCP Pediatrics
DX: M47.812 Spondylosis without myelopathy or radiculopathy, cervical region (principal); R20.2 Paresthesia of skin; R51.9 Headache, unspecified
CPT/HCPCS: 36415; 70496; 70498; 80048; 85025; 85610; 99284; Q9967

== ENCOUNTER → 2021-08-31 09:12 | Outpatient (BNVA) | payer OTHER, SELFPAY | PROVIDERS: PCP Obstetrics & Gynecology; Visit Provider Internal Medicine | DX: Z13.89 Encounter for screening for other disorder (principal) | CPT/HCPCS: 99213 ==

== ENCOUNTER 2021-11-03 08:00 | Outpatient (RCR) | payer BC, SELFPAY | END 2021-11-10 08:21 | disposition home or self-care (01) | LOC: HO.PT 08:00 | PROVIDERS: PCP Obstetrics & Gynecology; Visit Provider Obstetrics & Gynecology | DX: R10.2 Pelvic and perineal pain (principal) | CPT/HCPCS: 97112; 97140; 97161 ==

== ENCOUNTER → 2021-12-08 10:42 | Outpatient (BNVA) | payer OTHER, SELFPAY | PROVIDERS: PCP Obstetrics & Gynecology; Visit Provider Physician Assistant | DX: Z13.89 Encounter for screening for other disorder (principal) | CPT/HCPCS: 99203 ==

== ENCOUNTER 2022-11-28 12:49 | Emergency (ER) | payer BC, SELFPAY ==
[2022-11-28 13:03] VITALS: BP 148/97; PULSE 119; RESP 18; TEMP 36.8; O2SAT 98; BMI 20.4
--- NOTE | 2022-11-28 13:20 | ECG_ITS ---
Test Reason : ANXIETY Blood Pressure : / mmHG Vent. Rate : 097 BPM Atrial Rate : 097 BPM P-R Int : 128 ms QRS Dur : 080 ms QT Int : 358 ms P-R-T Axes : 056 084 060 degrees QTc Int : 454 ms Normal sinus rhythm Normal ECG No previous ECGs available Referred By: Viji Porter Electronically Signed By:LEIGH ORDAZ MD
--- NOTE | 2022-11-28 13:20 | ED_ITS ---
HPI - General Adult General Chief complaint: General Medical Stated complaint: multiple complaints Time Seen by Provider: 11/28/22 13:04 Source: patient Mode of arrival: ambulatory Limitations: no limitations History of Present Illness HPI narrative: A 42-year-old female came in for evaluation of multiple symptoms. Symptoms started for the past 4 days, complaining of anxiety, generalized body ache, metallic taste in her mouth, fatigue, nausea, weight loss, decreased p.o. intake, and dry mouth, facial numbness. Patient just recovered from right breast cancer and received radiation therapy, also Patient took Flagyl 3 weeks ago for BV and she thinks her symptoms are related to the medication. No sick contacts, no recent travel, no headache, no weakness, no numbness. Patient declines alcohol or drug abuse. No SI or HI, no hallucination. Related Data Home Medications Medication Instructions Recorded Confirmed Fish Oil 09/23/20 Probiotic 09/23/20 Vitamin C 09/23/20 acetaminophen 500 mg tablet 1,000 mg PO Q6H PRN Pain, Mild 09/23/20 09/23/20 bupropion HCl 150 mg tablet,12 hr 1 tab PO BID 09/23/20 09/23/20 sustained-release desogestrel 0.15 mg-ethinyl 1 tab PO DAILY 09/23/20 09/23/20 estradiol 0.03 mg tablet (Apri) hydroxyzine HCl 25 mg tablet 1 tab PO TID PRN anxiety 09/23/20 09/23/20 ibuprofen 09/23/20 09/23/20 multivitamin 1 tab PO DAILY 09/23/20 09/23/20 omeprazole 20 mg capsule,delayed 1 cap PO DAILY 09/23/20 09/23/20 release Previous Rx's Medication Instructions Recorded cyclobenzaprine 5 mg tablet 5 mg PO Q8H PRN pain (scale score 07/25/21 7-10) 5 days #14 tabs lidocaine 5 % topical patch 1 patch topical DAILY PRN pain #30 07/25/21 (Lidoderm) ea lorazepam 0.5 mg tablet (Ativan) 0.5 mg PO DAILY PRN anxiety #10 11/28/22 tabs Allergies Allergy/AdvReac Type Severity Reaction Status Date / Time codeine [CODEINE] Allergy Unknown VOMITING Verified 10/14/20 09:25 Review of Systems 2 Review of Systems: All other systems are reviewed and are negative Constitutional: Reports as per HPI and Reports no additional constitutional complaints Eyes: Reports as per HPI and Reports no additional eye complaints Reports system reviewed and no additional complaints, except as documented Cardiovascular: Reports as per HPI and Reports no additional cardiovascular complaints Respiratory: Reports as per HPI and Reports no additional respiratory complaints Gastrointestinal: Reports as per HPI and Reports no additional gastrointestinal complaints Genitourinary: Reports no additional female genitourinary complaints Musculoskeletal: Reports no additional musculoskeletal complaints Skin/Breast: Reports system reviewed and no additional complaints, except as docu Psychiatric: Reports no additional psychiatric complaints Endocrine: Reports no additional endocrine complaints Hematologic/Lymphatic: Reports no additional hematologic/lymphatic complaints Allergic/Immunologic: Reports no additional allergic/immunologic complaints Reports system reviewed and no additional complaints, except as documented and Reports Abnormal speech present REPLACED BY [facility] Past Medical History Medical History Hiatal hernia Liver mass, left lobe Bustillos syndrome Fibromyalgia Anxiety Depression Surgical History Hx of section History of tonsillectomy and adenoidectomy Hx of breast augmentation Hx of colonoscopy Hx of esophagogastroduodenoscopy Social History Social History Alcohol intake: current Alcohol intake frequency: 0-2 drinks per day Alcohol type: wine Patient Tobacco Use Status: Never used Tobacco Advance Directives: No Advance Directives Information Provided: Yes Physical Exam ED Vital Signs: Vital Signs - 24 hr 11/28/22 13:03 11/28/22 13:38 11/28/22 14:02 Temperature 98.2 F Pulse Rate 119 H 90 97 Respiratory Rate 18 18 16 Blood Pressure 148/97 H 129/83 Pulse Oximetry 98 99 100 Oxygen Delivery Method Room Air Room Air Room Air BMI result Body Mass Index 20.4 Vital signs have been reviewed and appear to be correct. Blood pressure elevated. Heart rate normal. Respiratory rate normal. Temperature normal. Oxygen saturation normal. Appearance: Alert. Oriented X3. No acute distress. Head: Normal external exam. Normocephalic. Atraumatic. No Singh signs noted. No raccoon eyes noted Eyes: PERRLA. EOMI. Conjunctiva and sclera normal. Eyelids normal. ENT: TM's Normal. Pharynx normal. Uvula midline. Moist mucous membranes. No trismus noted. No drooling noted. No muffled voice noted. Neck: Normal inspection. Neck supple. FROM. No adenopathy. Thyroid Normal. No meningeal signs. No neck mass noted. CVS: Normal heart rate and rhythm. Heart sound normal. No murmurs noted. Pulses normal throughout. Respiratory: No respiratory distress. Painless inspiration. Breath sounds normal. No wheezes/rales/rhonchi noted. Chest nontender. No accessory muscle usage noted or decreased air movement noted. Abdomen: Soft and nontender. Bowel sounds normal in all 4 quadrants. No distention noted. No organomegaly noted. No visible injury noted. Back: No CVA tenderness. Full range of motion noted. Skin: Skin warm and dry. Normal skin color. Normal skin turgor. No rashes/lesions/lacerations noted. Extremities: No lower extremity edema. Extremities exhibit normal range of motion. Extremities nontender. Neuro: Oriented X 3. Cranial nerve exam: II-XII are grossly intact No motor deficit. No sensory deficit. Reflexes normal. Patient Orientation: Person, Place, Time and Situation, okay hygiene and grooming. Fair eye contact, attentive, no tics or tremors. Level of Consciousness: Awake, Appropriate and Alert Patient Behavior: Appropriate, Guarded, Cooperative and Anxious Mood Description: Constricted, Blunted and Apprehensive Affect Description: Constricted, Blunted and Apprehensive Patient Cognition Impaired: No Ability to Follow Directions: Excellent Speech Pattern: Clear, Appropriate and Spontaneous Speech, nonpressured, spontaneous with regular rate and rhythm, normal volume and prosody. No dysarthria. Memory Description: Intact, Immediate Intact and Short Term Intact Hallucinations: None Delusions: Not Present Thought Process: Intact Thought Content: positive for Intact, positive for Logical, denies Suicidal Ideation and denies Homicidal Ideation. Depressive Symptoms: Not present. Judgement and Insight: Limited but adequate. Course Course Course Narrative: A 42-year-old female history of right breast cancer which is recently recovered from, patient feels anxious about recurrence and symptoms that the patient developed after using Flagyl 3 weeks ago. Physical and neuro exam is unremarkable in the emergency department, labs and UA is also unremarkable patient was reassured and was instructed to follow-up with her PCP for further evaluation. Medications Administered Discontinued Medications Generic Name Dose Route Start Last Admin Trade Name Freq PRN Reason Stop Dose Admin Sodium Chloride 1,000 mls @ 999 mls/hr 11/28/22 13:19 11/28/22 13:34 Ns IV 11/28/22 14:19 999 mls/hr .Q1H1M ONE Administration Lorazepam 1 mg 11/28/22 13:19 11/28/22 13:37 Lorazepam 2 Mg/Ml Vial IVPUSH 11/28/22 13:20 1 mg ONCE ONE Administration Medical Decision Making Differential Diagnosis Differential Diagnoses: The differential diagnosis associated with the presentation includes (Electrolyte abnormality, severe anemia, anxiety.) Admission/Observation Consideration of admission/observation: Escalation of care including admission/observation considered Lab Data MDM Lab Attestation statement: I reviewed the patient's lab results. 11/28/22 13:33 11/28/22 13:33 Labs: Lab Results 11/28/22 11/28/22 Range/Units 13:33 14:00 WBC 5.0 (4.8-10.8) X10*3/uL RBC 4.78 (4.20-5.50) X10*6/uL Hgb 14.5 (12.0-16.0) g/dl Hct 42.6 (37.0-47.0) % MCV 89.1 (80.0-98.0) fL MCH 30.3 (27.0-33.0) pg MCHC 34.0 (31.0-35.0) g/dl RDW 11.9 (11.0-16.0) % Plt Count 211 (160-400) X10*3/uL MPV 10.2 (9.4-12.3) fL Immature Gran % (Auto) 0.2 (0.0-0.4) % Neut % (Auto) 75.6 H (45-73) % Lymph % (Auto) 17.1 L (20-40) % Braxton % (Auto) 6.5 (2-11) % Eos % (Auto) 0.2 (0-4) % Baso % (Auto) 0.4 (0-2) % Lymph # (Auto) 0.9 L (1.2-4.9) X10*3/uL Braxton # (Auto) 0.3 (0.1-1.2) X10*3/uL Eos # (Auto) 0.0 (0.0-0.4) X10*3/uL Baso # (Auto) 0.0 (0.0-0.2) X10*3/uL Abs Immat Gran (auto) 0.01 (0.00-0.03) X10*3/uL Absolute Neuts (auto) 3.8 (2.0-8.3) x10*3/uL Absolute Nucleated RBC 0.000 (0.0-0.012) X10*3/uL Nucleated RBC % (auto) 0.0 (0.0-0.2) /100WBC Sodium 140 (135-145) mmol/L Potassium 4.2 (3.3-5.1) mmol/L Chloride 103 (96-108) mmol/L Carbon Dioxide 28 (22-29) mmol/L Anion Gap 13 (12-20) BUN 10 (9-16) mg/dL Creatinine 0.74 (0.5-1.4) mg/dL Estim Creat Clear Calc 76.2 Estimated GFR > 60 Random Glucose 99 (60-115) mg/dL Calcium 9.6 (8.4-10.2) mg/dL Total Bilirubin 0.5 (0.0-1.0) mg/dL Direct Bilirubin 0.2 (0.0-0.5) mg/dL AST 25 (5-31) U/L ALT 23 (0-31) U/L Alkaline Phosphatase 45 (39-117) U/L Total Protein 7.5 (6.5-8.0) g/dL Albumin 4.5 (3.5-5.0) g/dL Lipase 28 (8-78) U/L Urine Color Yellow Urine Appearance Clear Urine pH 7.0 (5.0-9.0) Ur Specific [place] <= 1.005 (1.005-1.025) Urine Protein Negative (Neg-Trace) mg/dL Urine Glucose (UA) Negative (Negative) mg/dL Urine Ketones Negative (Negative) mg/dL Urine Blood Negative (Negative) Urine Nitrite Negative (Negative) Ur Leukocyte Esterase Negative (Negative) Urine Test NEGATIVE (NEGATIVE) Urine Opiates Screen Not Detected (Not Detect) Urine Fentanyl Screen Not Detected (Not Detect) Ur Barbiturates Screen Not Detected (Not Detect) Ur Phencyclidine Scrn Not Detected (Not Detect) Ur Amphetamines Screen Not Detected (Not Detect) U Benzodiazepines Scrn Not Detected (Not Detect) Urine Cocaine Screen Not Detected (Not Detect) U Marijuana (THC) Screen Not Detected (Not Detect) Discharge Plan Discharge Clinical Impression: Anxiety Patient Disposition: Home, Self-Care Instructions: Anxiety (ED) Prescriptions: New lorazepam [Ativan] 0.5 mg tablet 0.5 mg PO DAILY PRN (Reason: anxiety) Qty: 10 0RF No Action multivitamin Tablet 1 tab PO DAILY bupropion HCl 150 mg tablet sustained-release 12 hr 1 tab PO BID desogestrel-ethinyl estradiol [Apri] 0.15-0.03 mg tablet 1 tab PO DAILY acetaminophen 500 mg Tablet 1,000 mg PO Q6H PRN (Reason: Pain, Mild) omeprazole 20 mg capsule,delayed release(DR/EC) 1 cap PO DAILY hydroxyzine HCl 25 mg tablet 1 tab PO TID PRN (Reason: anxiety) Fish Oil Probiotic Vitamin C ibuprofen lidocaine [Lidoderm] 5 % adhesive patch,medicated 1 patch topical DAILY MDD remove after 12 hours PRN (Reason: pain) Qty: 30 0RF Rx Instructions: leave on most painful area for up to 12 hrs cyclobenzaprine 5 mg tablet 5 mg PO Q8H PRN (Reason: pain (scale score 7-10)) 5 Days Qty: 14 0RF
[2022-11-28] MEDS: 0.9 % Sodium Chloride 1,000 ML 999 ML IV (13:34)
[2022-11-28] MEDS: LORazepam 2 MG/ML VIAL 1 MG IVPUSH (13:37)
[2022-11-28 13:38] VITALS: PULSE 90; RESP 18; O2SAT 99
[2022-11-28 13:38] LABS: MANUAL DIFF FLAG NO
[2022-11-28 13:41] LABS: Basophils Percent Auto 0.4 % (0-2); Eosinophils Percent Auto 0.2 % (0-4); Hematocrit 42.6 % (37.0-47.0); Hemoglobin 14.5 g/dl (12.0-16.0); Imm Gran Abs Auto 0.01 X10*3/uL (0.00-0.03); Imm Gran Pct Auto 0.2 % (0.0-0.4); Lymphocytes Absolute Auto 0.9 X10*3/uL (1.2-4.9); Lymphocytes Percent Auto 17.1 % (20-40); Mean Corpuscular Hemoglobin 30.3 pg (27.0-33.0); Mean Corpuscular Volume 89.1 fL (80.0-98.0); Mean Platelet Volume 10.2 fL (9.4-12.3); Monocytes Absolute Auto 0.3 X10*3/uL (0.1-1.2); Monocytes Percent Auto 6.5 % (2-11); Neutrophils Absolute Auto 3.8 x10*3/uL (2.0-8.3); Neutrophils Percent Auto 75.6 % (45-73); Platelet Count 211 X10*3/uL (160-400); Red Blood Count 4.78 X10*6/uL (4.20-5.50); Red Cell Distribution Width 11.9 % (11.0-16.0)
[2022-11-28 13:57] LABS: Alanine Aminotransferase 23 U/L (0-31); Albumin Level 4.5 g/dL (3.5-5.0); Alkaline Phosphatase 45 U/L (39-117); Anion Gap 13 (12-20); Aspartate Amino Transferase 25 U/L (5-31); Bilirubin Direct 0.2 mg/dL (0.0-0.5); Bilirubin Total 0.5 mg/dL (0.0-1.0); Blood Urea Nitrogen 10 mg/dL (9-16); Calcium 9.6 mg/dL (8.4-10.2); Carbon Dioxide 28 mmol/L (22-29); Chloride 103 mmol/L (96-108); Creatinine Clr Calc Pharmacy 76.2; Estimated Glomerular Filt Rate > 60; Glucose Random 99 mg/dL (60-115); Lipase 28 U/L (8-78); Potassium 4.2 mmol/L (3.3-5.1); Sodium 140 mmol/L (135-145); Total Protein 7.5 g/dL (6.5-8.0)
[2022-11-28 14:02] VITALS: BP 129/83; PULSE 97; RESP 16; O2SAT 100
[2022-11-28 14:13] LABS: Appearance Urine Clear; Color Urine Yellow; Glucose Urine UA Negative (Negative); Leukocyte Esterase Urine Negative (Negative); Nitrite Urine Negative (Negative); Specific Gravity - Urine <= 1.005 (1.005-1.025); UPreg QC Valid YES; Urine Blood Negative (Negative); Urine Ketones Negative (Negative); Urine Pregnancy NEGATIVE (NEGATIVE); Urine Protein Negative (Neg-Trace)
[2022-11-28 14:24] LABS: Amphetamine Screen Urine Not Detected (Not Detect); Barbiturates, Urine Not Detected (Not Detect); Benzodiazepines Screen Urine Not Detected (Not Detect); Cannabinoid Screen Urine Not Detected (Not Detect); Cocaine Screen Urine Not Detected (Not Detect); Fentanyl, urine Not Detected (Not Detect); Opiate Screen Urine Not Detected (Not Detect); Phencyclidine Screen Urine Not Detected (Not Detect)
--- NOTE | 2022-11-28 14:59 | PC.NURSE ---
nad, skin wpd, lab results reviewed w pt, pending re eval
== END 2022-11-28 15:07 | disposition home or self-care (01) ==
PROVIDERS: Emergency Provider Emergency Medicine
DX: F41.1 Generalized anxiety disorder (principal); F43.0 Acute stress reaction; M79.10 Myalgia, unspecified site; R11.2 Nausea with vomiting, unspecified; R20.0 Anesthesia of skin; Z79.899 Other long term (current) drug therapy
CPT/HCPCS: 36415; 80048; 80076; 80307; 81003; 81025; 83690; 85025; 93005; 96374; 99284; J2060

== ENCOUNTER 2022-12-06 12:35 | Outpatient (REF) | payer BC, SELFPAY ==
--- NOTE | ~2022-12-06 | MR_ITS ---
EXAMINATION: MR CERVICAL SPINE WITHOUT CONTRAST CLINICAL INFORMATION: Paraparesis. Arm and leg numbness bilaterally. COMPARISON: None available. TECHNIQUE: Multiplanar, multisequential imaging of the cervical spine was performed without contrast. FINDINGS: VERTEBRAL BODIES AND PARASPINAL SOFT TISSUES: There is severe endplate edema and disc space narrowing at the C5-C6 level. Very mild disc space narrowing also evident at the C4-C5 level. The remaining discs are normal in appearance. No compression fractures or subluxations are seen. The vertebral artery flow-voids are normally maintained. The paraspinal soft tissues appear normal. The imaged lung apices are grossly clear. CERVICOMEDULLARY JUNCTION AND VISUALIZED POSTERIOR FOSSA: The craniovertebral junction and imaged portions of the brain parenchyma appear normal. No cord signal abnormality or syrinx is seen. SPINAL LEVELS: C2-C3 and C3-C4: No disc pathology. No central canal stenosis or foraminal narrowing. C4-C5: Mild loss of disc height and mild disc bulge with very mild uncovertebral joint spurring. No central canal stenosis or foraminal narrowing. C5-C6: Severe loss of disc height with extensive endplate edematous changes. Broad-based disc-osteophyte complex mildly impressing upon the ventral cord and thecal sac with [id number] central canal stenosis and severe left foraminal narrowing. C6-C7 and C7-T1: No disc pathology. No central canal stenosis or foraminal narrowing. MR/MR cervical spine wo con IMPRESSION: Severe degenerative disc disease with extensive endplate edema at the C5-C6 level. [id number] central canal stenosis and severe left foraminal narrowing at this level. No cord signal abnormality.
== END 2022-12-06 12:36 | disposition home or self-care (01) ==
LOC: HO.MRI 12:35
PROVIDERS: PCP Pediatrics; Visit Provider Psychiatry & Neurology Neurology
DX: G82.20 Paraplegia, unspecified (principal)
CPT/HCPCS: 72141

== ENCOUNTER 2023-02-22 09:05 | Outpatient (REF) | payer BC, SELFPAY ==
--- NOTE | ~2023-02-22 | MR_ITS ---
EXAMINATION: MR BRAIN WITHOUT CONTRAST CLINICAL INFORMATION: Paresthesias. COMPARISON: CT dated 07/25/2021. TECHNIQUE: Multiplanar, multisequence imaging of the brain was performed without contrast. FINDINGS: No diffusion abnormalities are identified to suggest an acute or subacute infarct. The ventricles are normal in size. No mass effect or midline shift is seen. No brain parenchymal signal abnormality is noted. No extra-axial fluid collections are seen. The brainstem and cerebellum are normal. The craniovertebral junction, marrow signal, and midline structures are normal. The major intracranial flow voids at the level of the huslia of [place] are preserved. The dural venous sinus flow voids are maintained. The mastoid air cells and paranasal sinuses are well aerated. MR/MR head/brain wo con IMPRESSION: Normal MRI of the brain. No acute process.
== END 2023-02-22 09:06 | disposition home or self-care (01) ==
LOC: HO.MRI 09:05
PROVIDERS: PCP Pediatrics; Visit Provider Psychiatry & Neurology Neurology
DX: R20.2 Paresthesia of skin (principal)
CPT/HCPCS: 70551

== ENCOUNTER 2023-03-30 11:10 | Outpatient (REF) | payer BC, SELFPAY ==
[2023-03-31 14:28] LABS: Immunoglobulin A 174 mg/dL (47-310)
[2023-03-31 21:03] LABS: Gliadin Deamidated IgA Ab 1.1 U/mL; Gliadin Deamidated IgG Ab <1.0 U/mL; Transglutaminase Ab IgG <1.0 U/mL; Transglutaminase IgA <1.0 U/mL
[2023-04-05 09:03] LABS: Endomysial IgA Antibody Negative (Negative)
== END 2023-03-30 11:11 | disposition home or self-care (01) ==
LOC: HO.LAB 11:10
PROVIDERS: Visit Provider Internal Medicine
DX: R10.9 Unspecified abdominal pain (principal); R63.4 Abnormal weight loss
CPT/HCPCS: 36415; 82784; 86231; 86258; 86364

== ENCOUNTER 2023-04-26 14:00 | Outpatient (RCR) | payer BC, SELFPAY | END 2023-07-06 10:43 | disposition home or self-care (01) | LOC: HO.PT 14:00 | PROVIDERS: PCP Pediatrics; Visit Provider Obstetrics & Gynecology | DX: R10.2 Pelvic and perineal pain (principal) | CPT/HCPCS: 97110; 97112; 97140; 97162 ==

== ENCOUNTER 2023-04-29 08:29 | Outpatient (REF) | payer BC, SELFPAY ==
[2023-04-29 08:56] LABS: MANUAL DIFF FLAG NO
[2023-04-29 09:16] LABS: Basophils Percent Auto 0.9 % (0-2); Eosinophils Percent Auto 1.2 % (0-4); Hematocrit 39.3 % (37.0-47.0); Hemoglobin 13.2 g/dl (12.0-16.0); Imm Gran Abs Auto 0.02 X10*3/uL (0.00-0.03); Imm Gran Pct Auto 0.6 % (0.0-0.4); Lymphocytes Absolute Auto 0.9 X10*3/uL (1.2-4.9); Lymphocytes Percent Auto 28.3 % (20-40); Mean Corpuscular HGB Conc 33.6 g/dl (31.0-35.0); Mean Corpuscular Hemoglobin 30.6 pg (27.0-33.0); Mean Platelet Volume 9.9 fL (9.4-12.3); Monocytes Absolute Auto 0.2 X10*3/uL (0.1-1.2); Monocytes Percent Auto 6.2 % (2-11); Neutrophils Percent Auto 62.8 % (45-73); Platelet Count 210 X10*3/uL (160-400); Red Blood Count 4.32 X10*6/uL (4.20-5.50); Red Cell Distribution Width 12.4 % (11.0-16.0); White Blood Count 3.2 X10*3/uL (4.8-10.8)
[2023-04-29 09:17] LABS: Fibrinogen 420 MG/DL (259-690)
[2023-04-29 09:38] LABS: Rheumatoid Factor < 13.0 IU/mL (<15.0)
[2023-04-29 09:51] LABS: Alanine Aminotransferase 39 U/L (0-31); Albumin Level 4.5 g/dL (3.5-5.0); Alkaline Phosphatase 56 U/L (39-117); Anion Gap 12 (12-20); Aspartate Amino Transferase 27 U/L (5-31); Blood Urea Nitrogen 12 mg/dL (9-16); Calcium 9.8 mg/dL (8.4-10.2); Carbon Dioxide 29 mmol/L (22-29); Chloride 106 mmol/L (96-108); Cholesterol 231 mg/dL (<200); Estimated Glomerular Filt Rate > 60; Glucose Random 89 mg/dL (60-115); HDL Cholesterol 87 mg/dL (>40); Iron 176 mcg/dL (30-160); LDL Cholesterol Calculated 134 mg/dL (<100); Percent Iron Saturation 54 % (15-50); Potassium 4.3 mmol/L (3.3-5.1); Sodium 143 mmol/L (135-145); Total Iron Binding Capacity 323 mcg/dL (228-428); Total Protein 7.6 g/dL (6.5-8.0); Triglycerides 53 mg/dL (<150); Unsaturated Iron Binding 147 ug/dL
[2023-04-29 10:10] LABS: Ferritin 103 ng/mL (10-250); Vitamin D 25-OH Total 70.3 ng/mL (>30)
[2023-05-01 14:04] LABS: CRP High Sensitivity 0.8 mg/L
[2023-05-08 09:19] LABS: Anti Nuclear Antibody Screen POSITIVE (NEGATIVE)
[2023-05-10 14:04] LABS: A phagocytophilum IgG <1:64 (<1:64); A phagocytophilum IgM <1:20 (<1:20); Babesia duncani Ab IgG (WA1) <1:256; Babesia microti IgG <1:64 titer (<1:64); Babesia microti IgM <1:20 titer (<1:20); E chaffeensis IgG <1:64 (<1:64); E chaffeensis IgM <1:20 (<1:20); Lyme Ab Screen <0.90 index
== END 2023-04-29 08:30 | disposition home or self-care (01) ==
LOC: HO.LAB 08:29
PROVIDERS: PCP Pediatrics; Visit Provider Naturopath
DX: Z13.0 Encounter for screening for diseases of the blood and blood-forming organs and certain disorders involving the immune mechanism (principal); Z13.220 Encounter for screening for lipoid disorders; E55.9 Vitamin D deficiency, unspecified; E03.9 Hypothyroidism, unspecified; R53.83 Other fatigue; M25.559 Pain in unspecified hip
CPT/HCPCS: 36415; 80053; 80061; 82306; 82728; 83540; 84443; 85025; 85384; 86038; 86039; 86141; 86431; 86618; 86666; 86753

== ENCOUNTER 2023-04-30 15:49 | Emergency (ER) | payer BC, SELFPAY ==
--- NOTE | ~2023-04-30 | XR_ITS ---
EXAMINATION: XR CHEST CLINICAL INFORMATION: Palpitations COMPARISON: No prior thoracic imaging. Limited images of the lung apices from CT angiography 07/25/2021. TECHNIQUE: 2 views of the chest were obtained. FINDINGS: Heart and mediastinal contours are normal. No mass, adenopathy or pulmonary edema. Normal lung volumes. No focal consolidation, effusion or pneumothorax. Nonobstructive gas pattern. Bilateral breast augmentation. No acute fracture. XR/XR chest 2V IMPRESSION: No acute cardiopulmonary process identified.
--- NOTE | 2023-04-30 15:51 | ECG_ITS ---
Test Reason : PALPATATIONS Blood Pressure : / mmHG Vent. Rate : 094 BPM Atrial Rate : 094 BPM P-R Int : 126 ms QRS Dur : 078 ms QT Int : 356 ms P-R-T Axes : 074 081 052 degrees QTc Int : 445 ms Normal sinus rhythm Normal EKG When compared with ECG of 28-NOV-2022 13:44, No significant changes seen Referred By: Ebonie Milan Electronically Signed By:MARY PERES
[2023-04-30 16:29] VITALS: BP 119/77; PULSE 87; RESP 18; TEMP 36.9
[2023-04-30 16:41] VITALS: BMI 20.5
--- NOTE | 2023-04-30 16:56 | ED_ITS ---
HPI - Arrhythmia/Palpitations General Chief Complaint: Arrhythmia/Palpitations Stated Complaint: palpitations Time Seen by Provider: 04/30/23 16:51 Source: patient Mode of arrival: ambulatory Limitations: no limitations History of Present Illness HPI narrative: Patient with History Bustillos syndrome , breast cancer status post partial resection and radiation treatment, anxiety, depression, if her episodes of palpitations off and for last 1 month has Holter placed prior to arrival patient noticed her heart rate was fast to 150 slight blurred vision the patient denies any significant anxiety at this time. No chest pain Related Data Home Medications Medication Instructions Recorded Confirmed Fish Oil 09/23/20 Probiotic 09/23/20 Vitamin C 09/23/20 acetaminophen 500 mg tablet 1,000 mg PO Q6H PRN Pain, Mild 09/23/20 09/23/20 bupropion HCl 150 mg tablet,12 hr 1 tab PO BID 09/23/20 09/23/20 sustained-release desogestrel 0.15 mg-ethinyl 1 tab PO DAILY 09/23/20 09/23/20 estradiol 0.03 mg tablet (Apri) hydroxyzine HCl 25 mg tablet 1 tab PO TID PRN anxiety 09/23/20 09/23/20 ibuprofen 09/23/20 09/23/20 multivitamin 1 tab PO DAILY 09/23/20 09/23/20 omeprazole 20 mg capsule,delayed 1 cap PO DAILY 09/23/20 09/23/20 release Previous Rx's Medication Instructions Recorded cyclobenzaprine 5 mg tablet 5 mg PO Q8H PRN pain (scale score 07/25/21 7-10) 5 days #14 tabs lidocaine 5 % topical patch 1 patch topical DAILY PRN pain #30 07/25/21 (Lidoderm) ea lorazepam 0.5 mg tablet (Ativan) 0.5 mg PO DAILY PRN anxiety #10 11/28/22 tabs lorazepam 0.5 mg tablet (Ativan) 0.5 mg PO BEDTIME PRN 04/30/23 anxiety/sleep #14 tabs Allergies Allergy/AdvReac Type Severity Reaction Status Date / Time codeine [CODEINE] Allergy Unknown VOMITING Verified 10/14/20 09:25 Review of Systems 2 Review of Systems: Yes all other systems are reviewed and are negative PMFSH Past Medical History Medical History Hiatal hernia Liver mass, left lobe Bustillos syndrome Fibromyalgia Anxiety Depression Surgical History Hx of section History of tonsillectomy and adenoidectomy Hx of breast augmentation Hx of colonoscopy Hx of esophagogastroduodenoscopy Social History Social History Alcohol intake: current Alcohol intake frequency: does not drink Alcohol type: wine Patient Tobacco Use Status: Never used Tobacco Smoked in Last 30 Days: No Use of substances other than those prescribed or required for medical reasons: No Advance Directives: No Advance Directives Information Provided: No Physical Exam 2 Vital Signs: Vital Signs: Last Vital Signs Temp 98.3 F 04/30/23 19:03 Pulse 86 04/30/23 19:03 Resp 14 04/30/23 19:03 BP 122/71 04/30/23 19:03 Pulse Ox 100 04/30/23 19:03 O2 Del Method Room Air 04/30/23 19:03 BMI result Body Mass Index 20.5 Appearance: Alert. Oriented X3. No acute distress. Eyes: PERRLA, No Nystagmus ENT: Pharynx normal. Oral Mucosa moist Neck: Normal inspection. Neck supple. CVS: Normal heart rate and rhythm. Pulses normal. Respiratory: No respiratory distress. Equal air entry bilateral, no wheezing/rales/rhonchi Abdomen: Soft and nontender. Bowel sounds are present, no mass palpable, no CVA tenderness Skin: Skin warm and dry. Normal skin color. Normal skin turgor. Extremities: No lower extremity edema. No calf tenderness Neuro: Oriented X 3. No motor deficit. No sensory deficit.No cerebellar signs , cranial nerves II-XII intact Medical Decision Making Medical Decision Making MDM Narrative: Patient with multiple comorbid condition with likely SVTs/PACs patient's labs are normal patient will be following cardiology Differential Diagnosis Differential Diagnoses: The differential diagnosis associated with the presentation includes Anxiety/palpitation/SVT/AFib Lab Data [facility] Lab Attestation statement: I reviewed the patient's lab results. 04/30/23 16:57 04/30/23 16:57 Labs: Lab Results 04/30/23 Range/Units 16:57 WBC 5.7 (4.8-10.8) X10*3/uL RBC 3.98 L (4.20-5.50) X10*6/uL Hgb 12.1 (12.0-16.0) g/dl Hct 35.9 L (37.0-47.0) % MCV 90.2 (80.0-98.0) fL MCH 30.4 (27.0-33.0) pg MCHC 33.7 (31.0-35.0) g/dl RDW 12.2 (11.0-16.0) % Plt Count 187 (160-400) X10*3/uL MPV 10.1 (9.4-12.3) fL Immature Gran % (Auto) 0.2 (0.0-0.4) % Neut % (Auto) 70.6 (45-73) % Lymph % (Auto) 21.7 (20-40) % Harnett % (Auto) 6.5 (2-11) % Eos % (Auto) 0.5 (0-4) % Baso % (Auto) 0.5 (0-2) % Lymph # (Auto) 1.2 (1.2-4.9) X10*3/uL Harnett # (Auto) 0.4 (0.1-1.2) X10*3/uL Eos # (Auto) 0.0 (0.0-0.4) X10*3/uL Baso # (Auto) 0.0 (0.0-0.2) X10*3/uL Abs Immat Gran (auto) 0.01 (0.00-0.03) X10*3/uL Absolute Neuts (auto) 4.0 (2.0-8.3) x10*3/uL Absolute Nucleated RBC 0.000 (0.0-0.012) X10*3/uL Nucleated RBC % (auto) 0.0 (0.0-0.2) /100WBC PT 12.7 (11.1-13.3) SEC INR 1.0 (0.9-1.1) Sodium 143 (135-145) mmol/L Potassium 3.9 (3.3-5.1) mmol/L Chloride 108 (96-108) mmol/L Carbon Dioxide 25 (22-29) mmol/L Anion Gap Not Reportable BUN 20 H (9-16) mg/dL Creatinine 0.82 (0.5-1.4) mg/dL Estim Creat Clear Calc 68.1 Estimated GFR > 60 Random Glucose 105 (60-115) mg/dL Calcium 9.4 (8.4-10.2) mg/dL Total Bilirubin 0.4 (0.0-1.0) mg/dL AST 23 (5-31) U/L ALT 36 H (0-31) U/L Alkaline Phosphatase 54 (39-117) U/L Troponin I High Sens < 2.7 (<3.5-17.0) ng/L Total Protein 6.9 (6.5-8.0) g/dL Albumin 4.2 (3.5-5.0) g/dL TSH 1.72 (0.32-4.0) uIU/mL Beta HCG, Quant < 2 mIU/mL Independent Interpretation I performed an independent interpretation of an: EKG Interpretation: Normal sinus rhythm heart rate 94 beats per minute normal interval normal axis no acute ST-T changes no acute ischemia Discharge Plan Discharge Clinical Impression: Palpitations Patient Disposition: Home, Self-Care Instructions: Heart Palpitations (ED) Additional Instructions: Continue to use your Holter monitor and follow with computer artist Ativan 0.5 mg at bedtime to sleep and relax Drink plenty of fluids Prescriptions: New lorazepam [Ativan] 0.5 mg tablet 0.5 mg PO BEDTIME PRN (Reason: anxiety/sleep) Qty: 14 0RF No Action multivitamin Tablet 1 tab PO DAILY bupropion HCl 150 mg tablet sustained-release 12 hr 1 tab PO BID desogestrel-ethinyl estradiol [Apri] 0.15-0.03 mg tablet 1 tab PO DAILY acetaminophen 500 mg Tablet 1,000 mg PO Q6H PRN (Reason: Pain, Mild) omeprazole 20 mg capsule,delayed release(DR/EC) 1 cap PO DAILY hydroxyzine HCl 25 mg tablet 1 tab PO TID PRN (Reason: anxiety) Fish Oil Probiotic Vitamin C ibuprofen lidocaine [Lidoderm] 5 % adhesive patch,medicated 1 patch topical DAILY MDD remove after 12 hours PRN (Reason: pain) Qty: 30 0RF Rx Instructions: leave on most painful area for up to 12 hrs cyclobenzaprine 5 mg tablet 5 mg PO Q8H PRN (Reason: pain (scale score 7-10)) 5 Days Qty: 14 0RF lorazepam [Ativan] 0.5 mg tablet 0.5 mg PO DAILY PRN (Reason: anxiety) Qty: 10 0RF Interventions: ED Discharge Assessment Last Done: 04/30/23 19:03 Discharge Date/Time: 04/30/23 19:04
[2023-04-30 17:02] LABS: MANUAL DIFF FLAG NO
[2023-04-30 17:03] LABS: Basophils Percent Auto 0.5 % (0-2); Eosinophils Percent Auto 0.5 % (0-4); Hematocrit 35.9 % (37.0-47.0); Hemoglobin 12.1 g/dl (12.0-16.0); Imm Gran Abs Auto 0.01 X10*3/uL (0.00-0.03); Imm Gran Pct Auto 0.2 % (0.0-0.4); Lymphocytes Absolute Auto 1.2 X10*3/uL (1.2-4.9); Lymphocytes Percent Auto 21.7 % (20-40); Mean Corpuscular HGB Conc 33.7 g/dl (31.0-35.0); Mean Corpuscular Hemoglobin 30.4 pg (27.0-33.0); Mean Corpuscular Volume 90.2 fL (80.0-98.0); Mean Platelet Volume 10.1 fL (9.4-12.3); Monocytes Absolute Auto 0.4 X10*3/uL (0.1-1.2); Monocytes Percent Auto 6.5 % (2-11); Neutrophils Percent Auto 70.6 % (45-73); Platelet Count 187 X10*3/uL (160-400); Red Blood Count 3.98 X10*6/uL (4.20-5.50); Red Cell Distribution Width 12.2 % (11.0-16.0); White Blood Count 5.7 X10*3/uL (4.8-10.8)
[2023-04-30 17:08] LABS: Prothrombin Time 12.7 SEC (11.1-13.3)
[2023-04-30 17:25] LABS: Alanine Aminotransferase 36 U/L (0-31); Albumin Level 4.2 g/dL (3.5-5.0); Alkaline Phosphatase 54 U/L (39-117); Aspartate Amino Transferase 23 U/L (5-31); Bilirubin Total 0.4 mg/dL (0.0-1.0); Blood Urea Nitrogen 20 mg/dL (9-16); Calcium 9.4 mg/dL (8.4-10.2); Carbon Dioxide 25 mmol/L (22-29); Chloride 108 mmol/L (96-108); Creatinine Clr Calc Pharmacy 68.1; Estimated Glomerular Filt Rate > 60; Glucose Random 105 mg/dL (60-115); Potassium 3.9 mmol/L (3.3-5.1); Sodium 143 mmol/L (135-145); Total Protein 6.9 g/dL (6.5-8.0)
[2023-04-30 17:29] LABS: Troponin-I High Sensitivity < 2.7 ng/L (<3.5-17.0)
[2023-04-30 17:44] LABS: HCG Quantitative < 2 mIU/mL; TSH reflex Free T4 1.72 uIU/mL (0.32-4.0)
[2023-04-30 19:03] VITALS: BP 122/71; PULSE 86; RESP 14; TEMP 36.8; O2SAT 100
== END 2023-04-30 19:04 | disposition home or self-care (01) ==
PROVIDERS: Registered Nurse Emergency; Emergency Provider Internal Medicine; PCP Pediatrics
DX: R00.2 Palpitations (principal); Z85.3 Personal history of malignant neoplasm of breast
CPT/HCPCS: 36415; 71046; 80053; 84443; 84484; 84702; 85025; 85610; 93005; 99283; 99284

== ENCOUNTER → 2023-04-30 15:51 | Outpatient (BNV) | payer BC, SELFPAY | PROVIDERS: Emergency Provider Internal Medicine; PCP Pediatrics; Visit Provider Internal Medicine | DX: R00.2 Palpitations (principal) | CPT/HCPCS: 93010 ==

== ENCOUNTER 2023-05-16 06:20 | Day surgery (SDC) | payer BC, SELFPAY ==
[2023-05-12 13:57] VITALS: BMI 19.5
--- NOTE | 2023-05-15 09:09 | HO.ANESPROP2 ---
Documented by User: Mónica Sims NP 05/15/23 09:14 HPI - Anesthesia Eval Consult details Narrative: 43yo F for Upper Endoscopy PMFSH Past Medical History Medical History Hiatal hernia Liver mass, left lobe Bustillos syndrome Fibromyalgia Anxiety Depression Surgical History Surgical History H/O partial mastectomy Hx of section History of tonsillectomy and adenoidectomy Hx of breast augmentation Hx of colonoscopy Hx of esophagogastroduodenoscopy History of Problems with Anesthesia: No Social History Social History Alcohol intake: current Alcohol intake frequency: does not drink Alcohol type: wine Patient Tobacco Use Status: Never used Tobacco Are you DNR?: No Advance Directives: No Advance Directives Information Provided: Yes Recently lost weight without trying: No Nutrition Risks: No Nutritional Risk Patient : No FDLMP: LAST MTH Meds Allergies Allergy/AdvReac Type Severity Reaction Status Date / Time codeine [CODEINE] Allergy Unknown VOMITING Verified 10/14/20 09:25 metronidazole [From Flagyl] Allergy Blurry Verified 05/16/23 06:53 [facility] Home Medications Medication Instructions Recorded Confirmed Last Taken Type Probiotic 09/23/20 Unknown History Vitamin C 09/23/20 Unknown History bupropion HCl 150 mg tablet,12 hr 1 tab PO BID 09/23/20 09/23/20 Unknown History sustained-release multivitamin 1 tab PO DAILY 09/23/20 09/23/20 Unknown History omeprazole 20 mg capsule,delayed 1 cap PO DAILY 09/23/20 09/23/20 Unknown History release levothyroxine 50 mcg tablet 50 mcg PO DAILY 05/16/23 05/16/23 Unknown History Exam Height,Weight and Vital Signs: Height 5 ft 1.5 in Weight 47.627 kg Narrative Narrative: EKG 04/2023 Vent. Rate : 094 BPM Atrial Rate : 094 BPM P-R Int : 126 ms QRS Dur : 078 ms QT Int : 356 ms P-R-T Axes : 074 081 052 degrees QTc Int : 445 ms Normal sinus rhythm Normal EKG When compared with ECG of 28-NOV-2022 13:44, No significant changes seen Assessment and Plan Assessment Anesthesia Assessment: Chart Reviewed Final Anesthetic Review History of Problems with Anesthesia: No Documented by User: Ana Ovalle MD 05/16/23 07:22 [facility] Past Medical History Medical History Hiatal hernia Liver mass, left lobe Bustillos syndrome Fibromyalgia Anxiety Depression Surgical History Surgical History H/O partial mastectomy Hx of section History of tonsillectomy and adenoidectomy Hx of breast augmentation Hx of colonoscopy Hx of esophagogastroduodenoscopy Social History Social History Alcohol intake: current Alcohol intake frequency: does not drink Alcohol type: wine Patient Tobacco Use Status: Never used Tobacco Are you DNR?: No Advance Directives: No Advance Directives Information Provided: Yes Recently lost weight without trying: No Nutrition Risks: No Nutritional Risk Patient : No FDLMP: LAST MTH Meds Allergies Allergy/AdvReac Type Severity Reaction Status Date / Time codeine [CODEINE] Allergy Unknown VOMITING Verified 10/14/20 09:25 metronidazole [From Flagyl] Allergy Blurry Verified 05/16/23 06:53 [facility] Home Medications Medication Instructions Recorded Confirmed Last Taken Type Probiotic 09/23/20 Unknown History Vitamin C 09/23/20 Unknown History bupropion HCl 150 mg tablet,12 hr 1 tab PO BID 09/23/20 09/23/20 Unknown History sustained-release multivitamin 1 tab PO DAILY 09/23/20 09/23/20 Unknown History omeprazole 20 mg capsule,delayed 1 cap PO DAILY 09/23/20 09/23/20 Unknown History release levothyroxine 50 mcg tablet 50 mcg PO DAILY 05/16/23 05/16/23 Unknown History Exam Airway Mallampati Class: II TM Dist: >3cm Neck ROM: Full Loose/Missing/Broken Teeth: No Heart: RRR Lungs: CTA Assessment and Plan Assessment Anesthesia Assessment: Anesthesia Plan Discussed Final Anesthetic Review NPO: Yes ASA Class: II Final Preanesthetic Review: Meds/Allgs Chart Reviewed, Consent Obtained/Reviewed and Anes Risks/Benef Reviewed Patient Risk: Low Procedure Risk: Intermediate Anesthetic Plan Anesthetic Plan: MAC: Disposition: Standard PACU
[2023-05-16 06:41] VITALS: BMI 19.3
[2023-05-16 06:50] VITALS: BP 102/67; PULSE 74; RESP 20; TEMP 36.9; O2SAT 98
[2023-05-16 07:12] LABS: UPreg QC Valid YES; Urine Pregnancy NEGATIVE (NEGATIVE)
[2023-05-16 08:03] VITALS: BP 94/43; PULSE 83; RESP 18; TEMP 36.8; O2SAT 100
--- NOTE | 2023-05-16 08:07 | PM.OP ---
Brief Operative Note Date of Service: 05/16/23 Pre-op diagnosis: Abdominal discomfort Post-op diagnosis: other (Hiatal hernia) Procedure: EGD with biopsies Surgeon: Rogelio Elaine MD Anesthesia: MAC Was an Automotive Design Layout Drafter used for this Procedure?: No Estimated blood loss (mL): 2.0 Pathology: other (A. Descending duodenum B. Duodenal bulb C. Gastric antrum D. EG Junction at 35cm) Condition: stable Disposition: PACU
[2023-05-16 08:18] VITALS: BP 101/61; PULSE 75; RESP 18; O2SAT 100
--- NOTE | 2023-05-16 08:32 | OP_ITS ---
DATE OF SERVICE: 05/16/2023 SURGEON: Rogelio Elaine MD INDICATIONS: The patient presents for evaluation of abdominal discomfort and weight loss. Full consent has been obtained from her for this, including risks of bleeding and perforation. PREOPERATIVE DIAGNOSIS: POSTOPERATIVE DIAGNOSIS: PROCEDURE PERFORMED: Esophagogastroduodenoscopy with biopsies. ESTIMATED BLOOD LOSS: COMPLICATIONS: ANESTHESIA: Monitored anesthesia care. ASSISTANTS: SPECIMENS: PREOPERATIVE DIAGNOSES: Abdominal discomfort and weight loss. POSTOPERATIVE DIAGNOSES: Abdominal discomfort, weight loss, small hiatal hernia, rule out celiac disease. DESCRIPTION OF PROCEDURE: The patient was placed in the left lateral decubitus position. The Olympus video gastroscope was passed in the posterior oropharynx and upper esophagus under direct vision. The scope was passed slowly into the distal esophagus. The gastroesophageal junction appeared at 35 cm. There was some minimal irregularity, but no evidence of esophagitis nor any definitive evidence of Marrufo mucosa. There was a small hiatal hernia. The scope was advanced to the pylorus and the duodenum was cannulated to the descending portion. The duodenum including the bulb appeared normal. I was able to visualize the major papilla with flow of bile noted. This appeared normal as well. Biopsies were obtained from the descending duodenum and duodenal bulb. These were placed in separate containers. Again, there was no sign of any duodenitis nor any other mucosal abnormalities. The scope was withdrawn back to the stomach. The gastric antrum and body appeared normal with good peristalsis. Biopsies were obtained from the gastric antrum. The scope was retroflexed visualizing the proximal stomach carefully, which appeared normal, without any sign of mass or ulceration. The scope was straightened and withdrawn back to the esophagus. Biopsies were obtained at the EG junction at 35 cm. Proximal to that, the esophageal mucosa appeared normal. The scope was withdrawn from the patient. She tolerated procedure well and was returned to the recovery area in stable condition. IMPRESSION: Small hiatal hernia. PLAN: The results of the biopsy will be checked. She was advised not to use any aspirin and NSAIDs for least 1 week. She was advised to use her dicyclomine for any abdominal cramping and discomfort consistent with irritable bowel syndrome. She was advised to use omeprazole as needed for any upper abdominal burning and/or reflux symptoms. At this point, I do not think any other specific testing is required. She is due for a colonoscopy in 2025 and will see me otherwise on a p.r.n. basis. MD FELIPA Devine/VERO / [phone]
[2023-05-16 08:33] VITALS: BP 107/72; PULSE 70; RESP 18; TEMP 36.8; O2SAT 100
[2023-05-16 08:48] VITALS: BP 113/77; PULSE 68; RESP 16; TEMP 36.8; O2SAT 100
== END 2023-05-16 10:22 | disposition home or self-care (01) ==
PROVIDERS: Nurse Practitioner; PCP Pediatrics; Visit Provider Internal Medicine
PROC: 0DJ08ZZ Inspection of Upper Intestinal Tract, Via Natural or Artificial Opening Endoscopic (ICD-10-PCS; CPT 43235; principal; 2023-05-16 07:30)
DX: R10.13 Epigastric pain (principal); R63.4 Abnormal weight loss; K44.9 Diaphragmatic hernia without obstruction or gangrene
CPT/HCPCS: 43239; 81025; 88305; 88313; 88342; J2704

== ENCOUNTER 2024-07-31 10:06 | Outpatient (RCR) | payer BC, SELFPAY | END 2024-07-31 10:50 | disposition home or self-care (01) | LOC: HO.PT 10:06 | PROVIDERS: PCP Pediatrics; Visit Provider Obstetrics & Gynecology | DX: N94.2 Vaginismus (principal) | CPT/HCPCS: 97110; 97112; 97140; 97161 ==

== ENCOUNTER 2024-10-29 14:51 | Outpatient (AMB) | payer BC, SELFPAY ==
--- OUTSIDE RECORDS SUMMARY | 2023-05-16 03:30 | XMS_ITS ---
Author Organization [facility] Address [address] [place] [id number] Care Team Providers Care Building Performance Specialist Name Role Phone Jean Barger MD Primary Care Provider Unavail Rogelio Winter [phone] Encounters Encounter Location Date Provider Diagnosis [facility] [place] [address] [place], [place] [id number] 05/16/2023 Rogelio Elaine Other specified di sease [...] * SKYLAR ZURITAHENRIETTAOB: 3 (44 yo F)Acc No.[id number]:05/16/2023 EGD/MAC Patient: ELIZABETH ARANA Provider: Katalina Elaine MD :1980 A ge:43 Y S ex:Female Date:05/16/2023 Address:[address] [place] [address] [id number] Pcp:Jean Barger MD Subjective: * Chief Complaints: [...] 05/16/2023 Generated for Miri rutledge/Georgina/Jhoanitting on: 0 10/29/2024 06:34 PM EDT
--- NOTE | 2024-10-29 15:05 | MHC.OFFVIS ---
Intake Visit Reasons: new symptoms/ concerns Allergies codeine (CODEINE) Allergy (Unknown, Verified 10/14/20 09:25) VOMITING metronidazole (From Flagyl) Allergy (Verified 05/16/23 06:53) Blurry Vision HPI Comments Details: The patient is a 44-year-old female presenting with visual disturbance and sensory symptoms. She reports episodes of blurred vision and numb tongue when looking down, associated with weakness in the arms. Neck and cervicogenic symptoms with limited neck motion, primarily on the left side, are notable alongside an unusual sensation over the shoulder. Headaches are described as infrequent and localized behind the eyes. A previous MRI of the brain was unremarkable, raising the possibility of a demyelinating condition like MS. She recalls an exacerbation of symptoms with neck stiffness and tingling after metronidazole use. The patient has a history of premature , which might suggest developmental neurological effects. [facility] Medical History (Updated 10/29/24 @ 15:17 by Deidra Laura MD) Breast cancer Paraparesis Cervical spondylolysis Basilar migraine Hiatal hernia Liver mass, left lobe Bustillos syndrome Fibromyalgia Anxiety Depression Surgical History H/O partial mastectomy Hx of section History of tonsillectomy and adenoidectomy Hx of breast augmentation Hx of colonoscopy Hx of esophagogastroduodenoscopy Social History Alcohol intake: current Alcohol intake frequency: does not drink Alcohol type: wine Patient Tobacco Use Status: Never used Tobacco Review of Systems Const Details: - Eyes: Reports blurred vision when looking down. - Head/Ears: Reports pain at the back of the head and behind the ears. - Neurologic: Reports tongue numbness, arm weakness, neck stiffness, and tingling. - Musculoskeletal: Reports neck pain, limited range of motion, and shoulder sensation. - General: Denies frequent headaches or migraines except infrequent ones behind the eyes. Physical Exam Neuro Other: Mental Status: Alert and oriented to person, place, and time. Normal attention. Normal spontaneous speech, fluency, and comprehension. Affect is flat. Cranial Nerves: CN II: Visual singh full to confrontation, visual acuity intact. CN III, IV, : Pupils equal, round, reactive to light and accommodation. Extraocular movements are normal. CN V: Facial sensation is normal. CN VII: Facial movements symmetrical. CN VIII: Hearing intact to bedside conversation is normal. CN IX, X: Palate elevates symmetrically. CN XI: Shoulder shrug and head turn symmetrical. CN XII: Tongue midline without atrophy or fasciculations. Deep tendon reflexes are trace to 1+ in upper extremities with absent Ojao sign. In lower extremities, reflexes are brisk up to 4+ in both knees and ankles with flexor plantars. Extrapyramidal: Full facial expressions and blinking. No rigidity. Movements are appropriate with no tremor or abnormality. Speech: Normal; no dysarthria or tremor. Assessment & Plan Assessment & Plan (1) Anxiety: Code(s): F41.9 - Anxiety disorder, unspecified Category: Medical (2) Paresthesia: Comment: [place] [facility] [place]: WNL MRI C spine [place] [facility] [place]: C 5/6 spondylosis with ?cord abnorm [place] [facility] [place]: WNL CTA brain and neck [place] [facility] [place]: OK, cervical spondylosis. Code(s): R20.2 - Paresthesia of skin Category: Medical (3) Paraparesis: Code(s): G82.20 - Paraplegia, unspecified Category: Medical Plan Impression: She c/o set of symptoms suggestive of Lhermitte's sign. Her exam revealed significant bilateral leg hyperreflexia. She previously had a normal brain MRI and CTA of brain and neck. Rec: MRI C and T spine to r/o demylinating disease. I discussed with the patient the suspected diagnosis of multiple sclerosis given her complex symptomatology of visual disturbances and sensory deficits. I outlined the necessity of obtaining an MRI of the cervical and thoracic spine with and without contrast to detect any demyelinating lesions characteristic of MS. We reviewed the use and safety of gadolinium-based contrast, noting her previous tolerance. Should MRI findings support MS diagnosis, I explained the potential initiation of disease-modifying therapies to manage symptoms and slow progression. We also discussed the implications of her premature , noting it as a potential historical factor but not critical to immediate management pending MRI outcomes. Follow-up will include reviewing these results and sequencing any necessary further diagnostic evaluations and therapeutic interventions. Orders: Orders MR cervical spine wo/w con Today G82.20 - Paraplegia, unspecified MR thoracic spine wo/w con Today G82.20 - Paraplegia, unspecified Coding Level of Care Code Est Pt Level 5 (03675) Diagnoses Anxiety F41.9 Paresthesia R20.2 Paraparesis G82.20
--- OUTSIDE RECORDS SUMMARY | 2024-10-29 18:34 | XMS_ITS | Clinical Summary ---
Author Organization [address] [place] [address] [place] [phone] Phone Care Team Providers Care Practice Specialist Name Role Phone Dionna Barger MD Primary Care Provider [phone] Allergies Active Allergy Reactions Criticality Noted Date Comments Codeine Nausea And Vomiting 06/02/2005 Medications fluticasone propionate (FLONASE) 50 mcg/actuation nasal spray 2 Sprays by Nasal route daily. 6 Active hydrOXYzine HCL (ATARAX) 25 mg tablet Take 1 Tablet by mouth at bedtime as needed (sleep). Active Lactobacillus acidophilus (PROBIOTIC ACIDOPHILUS ORAL) Take by mouth. Activ e magnesium hydroxide (MAGNESIA ORAL) Take by mouth. Active berberin/grape/g rapefruit/bear (BERBEMYCIN ORAL) Take by mouth. Activ e DIETARY SUPPLEMENT ORAL Nutritional Supplements (VITAMIN D BOOSTER OR)- Take by mouth. Active omeprazole (PriLOSEC) [address] capsule Take 1 capsule (20 mg total) by mouth 1 (one) time each day. 4 Active OMEGA-3 FATTY ACIDS-FISH OIL ORAL Lucas-3 Fatty Acids (FISH OIL BURP-LESS OR)- Take by mouth. Active escitalopram (LEXAPRO) 20 mg tablet Take 1 tablet (20 mg total) by mouth 1 (one) time each day. Active naltrexone 3 mg capsule Take 1 capsule (3 mg total) by mouth. 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 There is no clear etiology. No evidence of infection or inflammatory disorder. As such, would recommend trying to treat as neuropathic pain with topical therapy. This is off label and patient understands. Given usually used compounded at 5% gabapentin on the vulva, will try a lower starting concentration as absorption is typically greater from the vagina. Will start with 2% to avoid systemic side effects. Discussed with [facility] and they can compound the medication we recommend. I called patient back and was unable to connect. Unable to leave VM due to full mailbox. Will call again on Monday. 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 Fear of flying 07/24/[address] scan 10/29/2014 Overview (03/15/2024): Liver lesion. 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 PATIENT NEEDS ANNUAL URINE- ANALYSIS SCREENING FOR MALIGNANT CELLS. Needs colonoscopy q 1-2 yrs started by age 32 Umass--Annual transvaginal ultrasound, endometrial bx, CA125, Dermatology--starting age 27 Per ass. No standard rec for Stomach, urinary, biliary, small bowel, brain screening (consider EGD q 2-3 yr, urine cytology) Last Assessment & Plan: Does need to return for EMB, although given bicornuate uterus, this could be difficult to be done blindly. Will have her reschedule to discuss in the near future. Up to date on recommendation for yearly pelvic US. Does need colonoscopy Q 1-2 years and urinalysis and CA 125 annually. She needs to see Derm. Anxiety 05/14/2014 Neck pain 08/10/2012 Overview (03/15/2024): WC 2010. Improved with PT, chiro. Recurrence 07/26 Depression 12/22/2007 Overview (03/15/2024): Anxiety and depression Last Assessment & Plan: I encouraged Elizabeth to continue the Wellbutrin as it may take some time before she notices clinical improvement. Educated about the crisis hotline if needed. Rx for hydroxyzine PRN anxiety given today. She was instructed not to use this medication while driving as it may make her sleepy, however I did encourage her to use it at night to potentially improve her sleep quality. Irritable bowel 12/22/2007 Overview (03/15/2024): Diarrhea with stress EGD, Flex sig 04/08/10 (Rogelio Elaine)--mild chronic gastritis, prob healing ulcer, H pylori neg. ?celiac disease on bx (all other testing for celiac was neg) Encounters Date Type Department Care Team Description 08/13/2024 10:30 AM EDT Office Visit Adult Medicine [address] [phone] Dionna Barger MD Hypothyroidism, unspecified type (Primary Dx); Screening, lipid; Screening for diabetes mellitus; Screening, anemia, deficiency, iron from Last 3 Months Immunizations Name Administration Dates Next Due DTP 08/14/1987, 4,1982,1982,1982 [id number] (Pentacel) 2mo to less than 5yo 08/14/1987 HPV, Quadrivalent 05/22/2007,03/20/2007 Hep B, Unspecified 05/31/2004,01/14/2003 Hepatitis B Pediatric (Enger ix B; Recombivax HB) to less than 20 yo 12/13/1995,07/06/1995,06/08/1995 Influenza Quadravalent, MDCK , 0.5ml, preservative free (Flucelvax) 6mo and older 10/26/2016 Influenza trivalent, 0.5mL, preservative free (Fluarix; FluLaval; Fluzone) ages 6mo and older (Afluria) 3 years and older 12/08/2021,12/03/2020,11/22/2020,2019,12/03/2019,01/03/2019,11/24/2017,1 02/14/2014,12/06/2005 Influenza, Unspecified 12/14/2017 MMR, measles mumps and rubel la Live (Priorix; M-M-R II) 12mo and older 07/03/1995,05/15/1983 Moderna SARS-CoV-2 COVID-19, mRNA, LNP-S, preservative free 06/15/2020,05/18/2020,04/02/2020 OPV 08/14/1987, 4,1982,1982,1982 Td Tetanus diptheria (Tdvax) 7yo and older 09/03/1996 Tdap Tetanus diptheria acell ular pertussis (Boostrix; Adacel) 7yo and older 10/26/2016,01/14/2008 Surgical History Surgery Date Site/Laterality Comments TONSILLECTOMY age 10 PROCEDURE: HISTORICAL TONSILLECTOMY BREAST SURGERY 06/14/2011 PROCEDURE: DC UNLISTED PROCEDURE BREAST; COMMENT: augmentation WISDOM TOOTH EXTRACTION age18 PROCEDURE: HISTORICAL WISDOM TEETH EXTRACTION OTHER SURGICAL HISTORY PROCEDURE: HISTORY OTHER; COMMENT: breast ca. lumpectomy and sentinal node biopsy. 07/05 and 08/05 repeat due to positive margins in first surgical pathology Medical History Medical History Date Comments Adjustment disorder with dep ressed mood DX:Adjustment disorder with depressed mood Irritable bowel syndrome DX:Irri table bowel syndrome Other and unspecified noninf ectious gastroenteritis and colitis(558.9) DX:Other and unspec ified noninfectious gastroenteritis and colitis(558.9); COMMENT: IBS Anxiety 05/14/2014 DX:Anxiety Breast cancer, right (CMS/ C V24, CMS/HCC V28) DX:Breast cancer, right (HCC ) Breast cancer (CMS/HCC V24, CMS/[facility] V28) 11/06/2022 Family History Medical History Relation Name Comments No Known Problems Brother Hyperlipidemia Father Hypertension Father Mental illness Father Depression Brain cancer Father's side cousin Other: accident Maternal Grandfather in plane crash at 27 Other: eye problem Maternal Grandmother ? cataracts Diabetes Mother Hypertension Mother Lung cancer Mother Other: Endometrial adenocarcinoma Mother + bustillos syndrome (di agnosed 2014) Colon cancer Mother's side Great Uncle Breast cancer Other paternal great Grandmother COPD Paternal Grandfather smoker Lung cancer Paternal Grandfather smoker Arthritis Paternal Grandmother Osteoporosis Paternal Grandmother Other cancer Uncle maternal, head and neck Relation Name Status Comments Brother Alive Father Alive Father's side Maternal Grandfather Maternal Grandmother Alive Mother Alive Mother's side Other Paternal Grandfather Paternal Grandmother Alive Uncle Social History Tobacco Use Types Packs/Day Years Used Date Smoking Tobacco: Never Smokeless Tobacco: Never Tobacco Cessation:Counseling Given: Not Answered Alcohol Use Standard Drinks/Week Comments Yes 5.8 (1 standard drink = 0.6 oz p ure alcohol) Comments No Sex and Gender Information Value Date Recorded Sex Assigned at Not on file Legal Sex Female 8:06 AM EST Gender Identity Not on file Sexual Orientation Not on file Obstetrics History Last Filed Vital Signs Vital Sign Reading Time Taken Comments Blood Pressure 96/63 08/13/2024 10:34 AM EDT Pulse 69 08/13/2024 10:34 AM EDT Temperature 37 C (98.6 F) 08/13/2024 10:34 AM EDT Respiratory Rate - - Oxygen Saturation - - Inhaled Oxygen Concentration - - Weight 60.1 kg (132 lb 9.6 oz) 08/13/2024 10:34 AM EDT Height 154.9 cm (5' 1 ) 08/13/2024 10:34 AM EDT Body Mass Index 25.05 08/13/2024 10:34 AM EDT Plan of Treatment Health Maintenance Due Date Last Done Comments Breast Cancer Screening 1982 Pneumococcal Vaccine: Pediatrics (0 to 5 Years) and At-Risk Patients (6 to 49 Years) (1 of 2 - PCV) 2001 HPV Vaccines (3 - Risk 3-dose series) 09/21/2007 05/22/2007, 03/20/2007 Cervical Cancer Screening: Pap Smear 11/13/2016 11/13/2013, 11/13/2013 Social Influencers of Health Screening 01/16/2022 Depression Screening 02/14/2024 COVID-19 Vaccine ( season) 2024 06/15/2020, 05/18/2020, 04/02/2020, Additional history exists Influenza Vaccine (#1) 2024 , 12/08/2021, 12/03/2020, Additional history exists DTaP,Tdap,and Td Vaccines (9 - Td or Tdap) 10/26/2026 10/26/2016, 01/14/2008, 09/03/1996, Additional history exists Cholesterol Screening (Lipid Panel) 08/13/2029 08/13/2024, 08/09/2022 HIB Vaccines Aged Out 08/14/1987, 08/14/1987 No lo nger eligible based on patient's age to complete this topic IPV Vaccines Completed 08/14/1987, 02/1987, 10/15/1983, Additional history exists MMR Vaccines Completed 07/03/1995, 05/15/1983 Hepatitis B Vaccines Completed 05/31/2004, 01/14/2003, 12/13/1995, Additional history exists HIV Screening Completed 09/14/2023, 09/14/2023 Hepatitis C Screening Completed 09/14/2023 Hepatitis A Vaccines Aged Out No long er eligible based on patient's age to complete this topic Meningococcal ACWY Vaccine Aged Out N o longer eligible based on patient's age to complete this topic Meningococcal B Vaccine Aged Out No l onger eligible based on patient's age to complete this topic RSV Immunization Patients Under 20 months Aged Out No longer eligible based on patient's age to complete this topic Varicella Vaccines Aged Out No longer eligible based on patient's age to complete this topic Procedures Procedure Name Priority Date/Time Associated Diagnosis Comments CBC WITH AUTO DIFFERENTIAL Routine 08/13/2024 11:04 AM EDT Screening, anemia, deficiency, iron THYROID STIMULATING HORMONE WITH REFLEX TO FREE T4 AND FREE T3 Routine 08/13/2024 11:04 AM EDT Hypothyroidism, unspecified type LIPID PANEL WITH REFLEX TO DIRECT LDL Routine 08/13/2024 11:04 AM EDT Screening, lipid COMPREHENSIVE METABOLIC PANEL Routine 08/13/2024 11:04 AM EDT Screening for diabetes mellitus CBC AND DIFFERENTIAL Routine 08/13/2024 11:04 AM EDT Screening, anemia, deficiency, iron HEPATITIS C SCREENING Routine 09/14/2023 HIV SCREENING Routine 09/14/2023 HPV Routine 11/13/2013 from Last 3 Months or Most Recently Relevant to Health Maintenance Results * Thyroid stimulating hormone with reflex to free t4 and free t3 (08/13/2024 11:04 AM EDT) TSH 2.01 0.40 - 4.00 mcIU/mL LAB CHEMISTRY METHOD 08/13/2024 3:57 PM EDT [facility] Blood Venous blood specimen / Unknown Venipuncture / Unknown 08/13/2024 11:04 AM EDT 08/13/2024 11:04 AM EDT [facility] [place] Barger MD LAB BLOOD ORDERABLES Final Res ult [facility] [address] [place] [address], [place] [phone] * (ABNORMAL) Lipid panel with reflex to direct LDL (08/13/2024 11:04 AM EDT) Cholesterol 215(H) 0 - 200 mg/dL LAB CHEMISTRY METHOD 08/13/2024 2:19 PM EDT [facility] Triglycerides 92 0 - 150 mg/dL LAB CHEMISTRY METHOD 08/13/2024 2:19 PM EDT [facility] HDL 92 >=40 mg/dL LAB CHEMISTRY METHOD 08/13/2024 2:19 PM EDT [facility] LDL Calculated 105(H) 0 - 100 mg/dL LAB CHEMISTRY METHOD 08/13/2024 2:19 PM EDT [facility] VLDL Cholesterol Henrry 18.4 mg/dL LAB [facility]STRY [facility] Non HDL Chol. (LDL+VLDL) 123 <145 mg/dL LAB CHEMISTRY METHOD 08/13/2024 2:19 PM EDT [facility] Chol/HDL Ratio 2.3 0.0 - 4.4 LAB CHEMISTRY METHOD 08/13/2024 2:19 PM [facility] Blood Venous blood specimen / Unknown Venipuncture / Unknown 08/13/2024 11:04 AM EDT 08/13/2024 11:04 AM EDT C Neto Barger MD LAB BLOOD ORDERABLES Final Res ult [facility] [address] [place] [address], [place] [phone] * CBC auto differential (08/13/2024 11:04 AM EDT) WBC 4.8 4.8 - 10.8 K/mcL LAB HEMETOLOGY METHOD 08/13/2024 1:07 PM [facility] RBC 4.10 3.80 - 4.80 M/mcL LAB HEMETOLOGY METHOD 08/13/2024 1:07 PM [facility] Hemoglobin 12.5 11.5 - 16.0 g/dL LAB HEMETOLOGY METHOD 08/13/2024 1:07 PM [facility] Hematocrit 37.8 35.0 - 47.0 % LAB HEMETOLOGY METHOD 08/13/2024 1:07 PM [facility] MCV 92.2 79.0 - 98.0 FL LAB HEMETOLOGY METHOD 08/13/2024 1:07 PM [facility] MCH 30.5 27.0 - 32.0 pcg LAB HEMETOLOGY METHOD 08/13/2024 1:07 PM [facility] MCHC 33.1 32.0 - 37.0 g/dL LAB HEMETOLOGY METHOD 08/13/2024 1:07 PM [facility] RDW 12.9 11.0 - 15.0 % LAB HEMETOLOGY METHOD 08/13/2024 1:07 PM [facility] Platelets 197 130 - 400 K/mcL LAB HEMETOLOGY METHOD 08/13/2024 1:07 PM [facility] MPV 10.7 7.0 - 11.0 FL LAB HEMETOLOGY METHOD 08/13/2024 1:07 PM [facility] NRBC 0.0 <1.0 % LAB HEMETOLOGY METHOD 08/13/2024 1:07 PM [facility] NRBC Absolute 0.00 <0.10 K/mcL LAB HEMETOLOGY METHOD 08/13/2024 1:07 PM [facility] Neutrophils Relative 55.7 % LAB HEMETOLOGY METHOD 08/13/2024 1:07 PM [facility] Lymphocytes Relative 33.7 % LAB HEMETOLOGY METHOD 08/13/2024 1:07 PM [facility] Monocytes Relative 7.7 % LAB HEMETOLOGY METHOD 08/13/2024 1:07 PM [facility] Eosinophils Relative 1.7 % LAB HEMETOLOGY METHOD 08/13/2024 1:07 PM [facility] Basophils Relative 0.6 % LAB HEMETOLOGY METHOD 08/13/2024 1:07 PM [facility] Immature Granulocytes Relative 0.6 % LAB HEMETOLOGY METHOD 08/13/2024 1:07 PM [facility] Neutrophils Absolute 2.69 1.50 - 7.00 K/mcL LAB HEMETOLOGY METHOD 08/13/2024 1:07 PM [facility] Lymphocytes Absolute 1.63 1.00 - 5.00 K/mcL LAB HEMETOLOGY METHOD 08/13/2024 1:07 PM EDT [facility] Monocytes Absolute 0.37 0.20 - 1.00 K/mcL LAB HEMETOLOGY METHOD 08/13/2024 1:07 PM EDT [facility] Eosinophils Absolute 0.08 0.00 - 0.50 K/mcL LAB HEMETOLOGY METHOD 08/13/2024 1:07 PM EDT [facility] Basophils Absolute 0.03 0.00 - 0.20 K/mcL LAB HEMETOLOGY METHOD 08/13/2024 1:07 PM EDT [facility] Immature Granulocytes Absolute 0.03 0.00 - 0.03 K/[facility] LAB HEMETOLOGY METHOD 08/13/2024 1:07 PM [facility] Blood Venous blood specimen / Unknown Venipuncture / Unknown 08/13/2024 11:04 AM EDT 08/13/2024 11:04 AM EDT C Neto Barger MD LAB BLOOD ORDERABLES Final Res ult [facility] [address] [place] [address], * Comprehensive metabolic panel (08/13/2024 11:04 AM EDT) Sodium 140 133 - 145 mmol/L LAB CHEMISTRY METHOD 08/13/2024 2:18 PM EDT [facility] Potassium 4.5 3.5 - 5.5 mmol/L LAB CHEMISTRY METHOD 08/13/2024 2:18 PM [facility] Chloride 103 96 - 110 mmol/L LAB CHEMISTRY METHOD 08/13/2024 2:18 PM [facility] CO2 32 21 - 32 mmol/L LAB CHEMISTRY METHOD 08/13/2024 2:18 PM EDT [facility] Anion Gap 5 3 - 11 LAB CHEMISTRY METHOD 08/13/2024 2:18 PM [facility] Glucose 76 70 - 100 mg/dL LAB CHEMISTRY METHOD 08/13/2024 2:18 PM [facility] BUN 13 5 - 25 mg/dL LAB CHEMISTRY METHOD 08/13/2024 2:18 PM [facility] Creatinine 0.68 0.50 - 1.10 mg/dL LAB CHEMISTRY METHOD 08/13/2024 2:18 PM [facility] eGFR 112 >=60 mL/min/1. 73m2 LAB CHEMISTRY METHOD 08/13/2024 2:18 PM [facility] Comment:Calculation based on the Chronic Kidney Disease Epidemiology Collaboration (CKD-EPI) equation refit without adjustment for race. BUN/Creatinine Ratio 19.1 LAB CHEMISTRY METHOD 08/13/2024 2:18 PM [facility] Calcium 8.7 8.5 - 10.5 mg/dL LAB CHEMISTRY METHOD 08/13/2024 2:18 PM [facility] AST (SGOT) 23 10 - 42 unit/L LAB CHEMISTRY METHOD 08/13/2024 2:18 PM [facility] ALT (SGPT) 42 10 - 60 unit/L LAB CHEMISTRY METHOD 08/13/2024 2:18 PM [facility] Alkaline Phosphatase 61 42 - 121 unit/L LAB CHEMISTRY METHOD 08/13/2024 2:18 PM [facility] Total Protein 6.7 6.0 - 8.0 g/dL LAB CHEMISTRY METHOD 08/13/2024 2:18 PM [facility] Albumin 3.5 3.2 - 5.0 g/dL LAB CHEMISTRY METHOD 08/13/2024 2:18 PM [facility] Total Bilirubin 0.6 0.0 - 1.4 mg/dL LAB CHEMISTRY METHOD 08/13/2024 2:18 PM [facility] Blood Venous blood specimen / Unknown Venipuncture / Unknown 08/13/2024 11:04 AM EDT 08/13/2024 11:04 AM EDT Dionna Barger MD LAB BLOOD ORDERABLES Final Res ult [facility] [address] [place] [address], * HIV Screening (09/14/2023) Pathologist [facility] [place] HIV Screening abstracted Historical Provider HEALTH MAINTENANCE Final Result * Hepatitis C Screening (09/14/2023) Pathologist [facility] Hepatitis C Screening abstracted Historical Provider HEALTH MAINTENANCE Final Result * Cervical Cancer Screening: HPV (11/13/2013) Pathologist [facility] Cervical Cancer Screening: HPV negative, abstracted Historical Provider HEALTH MAINTENANCE Final Result from Last 3 Months or Most Recently Relevant to Health Maintenance Insurance [facility]) Care Teams Practice Specialist Relationship Specialty Start Date End Date Dionna Barger MD [address] [place] [address] [place] [address] PCP - General 12/23/02
--- OUTSIDE RECORDS SUMMARY | 2024-10-29 18:34 | XMS_ITS | Clinical Summary ---
Author Organization [facility] Address [address] [place] [phone] Phone Care Team Providers Care Mincemeat Maker Name Role Phone Dionna Barger MD Primary Care Provider [phone] Self-Referred, Patient Unavailable Unavailab le Allergies Active Allergy Reactions Criticality Noted Date Comments Codeine 06/19/2018 Medications naproxen (NAPROSYN) 500 MG tablet Take 500 mg by mouth 2 (two) times a day with meals. Active levonorgestrel- ethinyl estradiol (AVIANE,ALESSE, LESSINA) 0.1-0.02 mg per tablet Take 1 tablet by mouth daily. Active fluticasone propionate (FLONASE) 50 mcg/actuation nasal spray 1 spray by Nasal route daily. Active cyclobenzaprine (FLEXERIL) 10 MG tablet Take 1 tablet (10 mg total) by mouth 3 (three) times a day as needed. 90 tablet 2 08/05/2018 Active DULoxetine (CYMBALTA) 30 MG capsule TAKE 1 CAPSULE BY MOUTH EVERY DAY 30 capsule 1 08/28/2018 Active Active Problems Problem Noted Date Diagnosed Date Positive ANNALISE (antinuclear antibody) 08/03/2018 Tendinitis of elbow 07/02/2018 Acute pain of right shoulder 06/27/2018 Pain of right hip joint 06/27/2018 Family History Medical History Relation Comments Depression Father Hyperlipidemia Father Hypertension Father Hereditary Non-Polyposis Col orectal Cancer (Bustillos Syndrome) Mother diagnosed in 2014 Hypertension Mother COPD Paternal Grandfather Lung cancer Paternal Grandfather Arthritis Paternal Grandmother Osteoporosis Paternal Grandmother Relation Status Comments Father Alive Maternal Grandfather Mother Alive Paternal Grandfather Paternal Grandmother Alive Social History Tobacco Use Types Packs/Day Years Used Date Smoking Tobacco: Never Smokeless Tobacco: Never Alcohol Use Standard Drinks/Week Comments Yes 0 (1 standard drink = 0.6 oz pur e alcohol) Education Answer Date Recorded Are you interested in more education? Not on ami e 06/10/2022 Are you concerned about learning? Not on file 06/10/2022 No 06/10/2022 No 06/10/2022 Digital Access Answer Date Recorded No 07/12/2022 No 07/12/2022 Reliable internet access at home? Not on file 07/12/2022 Device with a working camera? Not on file Comments Unknown Sex and Gender Information Value Date Recorded Sex Assigned at Female 06/06/2022 3:51 PM EDT Legal Sex Female 11:39 AM EDT Gender Identity Female 06/06/2022 3:51 PM EDT Sexual Orientation Straight 06/06/2022 3: 51 PM EDT Last Filed Vital Signs Vital Sign Reading Time Taken Comments Blood Pressure 110/70 08/03/2018 9:52 AM EDT Pulse - - Temperature - - Respiratory Rate - - Oxygen Saturation - - Inhaled Oxygen Concentration - - Weight 62.1 kg (136 lb 14.5 oz) 08/03/2018 9:52 AM EDT Height 154.9 cm (5' 0.98 ) 08/03/2018 9:52 AM ED T Body Mass Index 25.88 08/03/2018 9:52 AM EDT Plan of Treatment Health Maintenance Due Date Last Done Comments DEPRESSION SCREENING 1994 HEPATITIS C SCREENING 02/17/2000 HIV ONE-TIME SCREENING (18-65 YEARS) 02/17/2000 PAP SMEAR 2003 MAMMOGRAM 05/25/2024 05/25/2022, 11/17/2021 INFLUENZA VACCINE (#1) 2024 2, 12/03/2020, 11/22/2020, Additional history exists COVID-19 VACCINE ( season) 2024 06/15/2020, 05/18/2020, 04/02/2020, Additional history exists Adult Td,Tdap Booster 10/26/2026 10/26/2016 , 01/14/2008, 09/03/1996 HIB VACCINES Aged Out 08/14/1987 No longer eligi ble based on patient's age to complete this topic SMOKING STATUS SCREENING (Once After 26 Yrs) Completed 08/03/2018 HEPATITIS A VACCINES Aged Out No long er eligible based on patient's age to complete this topic MENINGOCOCCAL VACCINES (ACWY) Aged Out No longer eligible based on patient's age to complete this topic MENINGOCOCCAL VACCINES (B) Aged Out N o longer eligible based on patient's age to complete this topic PNEUMOCOCCAL VACCINES (0-49 years) Aged Out No longer eligible based on patient's age to complete this topic Medical Devices Not on file Procedures Procedure Name Priority Date/Time Associated Diagnosis Comments BI MAMMOGRAM OUTSIDE (NO INTERPRETATION) Routine 05/25/2022 12:00 AM EDT from Last 3 Months or Most Recently Relevant to Health Maintenance Results * Mammogram Outside (No Interpretation) (05/25/2022 12:00 AM EDT) Other Narrative [facility] - 06/09/2022 9:32 AM EDT This study is for PACS storage only and not for interpretation. us Shae Leach MD, MS IMG OUTSIDE IMAGING W/OUT INTERPRETATION Final Result Performing Organization Address City/State/[facility] Co de Phone Number [facility] from Last 3 Months or Most Recently Relevant to Health Maintenance Insurance OUT [facility] PPO BLUE CROSS OUT OF STATE PPO BLUE CROSS OUT OF STATE PPO BLUE CROSS OUT OF STATE PPO OUT OF [place] [address] [place] [address] OUT OF STATE PPO Member Subscriber Plan / Payer ( fective 2021-Present) Name:Daisy Zurita Relation to Subscriber:Spouse Name:KELVIN ZURITA Date of :1974 (Home) [address]: [address] [place] [id number] Payer ID:[id number] (NAIC) Type:PPO Address: [place] [id number] BLUE CROSS OUT OF STATE PPO BLUE CROSS OUT OF STATE PPO BLUE CROSS OUT OF STATE PPO Care Teams Mincemeat Maker Relationship Specialty Start Date End Date Dionna Barger MD [address] [place] [phone] PCP - General Internal Medicine 06/11/18 Self-Referred, Patient 06/06/22 Additional Source Comments The information contained in this document represents components of the legal health record. It is not the complete legal health record.[facility]
--- OUTSIDE RECORDS SUMMARY | 2024-10-29 18:34 | XMS_ITS | Patient Health Record ---
Author Organization [facility] Address [address] [place] [phone] Care Team Providers Care Air Carrier Inspector Name Role Phone Jean Barger MD Primary Care Provider Unavail able Rogelio Elaine Unavailable [phone] Allergies Allergen (clinical drug ingredient) Drug/Non Drug Allergy documented on EMR Reaction Allergy Type Onset Date Status codeine Codeine Sulfate vomitting Drug Allergy A ctive Reason For Referral No Information Medications Medication SIG (Take, Route, Frequency, Duration) Notes Start Date End Date Status NAC 600 MG 1 capsule Orally Onc e a day for 30 day(s) Active Levothyroxine Sodium 50 MCG 1 tablet in the morning on an empty stomach Orally Once a day for 30 day(s) Active buPROPion HCl ER (XL) 300 MG 1 tablet in the morning Orally Once a day for 30 day(s) Active Dicyclomine HCl 10 MG 1 or 2 Orally Ever y 6 hours as needed for abdominal cramping and discomfort for 30 day(s) 03/28/2023 Active Fish Oil Active Probiotic Active Omeprazole 20 MG TAKE 1 CAPSULE BY [facility] EVERY DAY Oral for 30 Active Vitamin D Active Immunizations Vaccine Route Administration Date Status Comme nts Influenza Unknown 11/27/2019 Administered Social History Alcohol Screen Question Answer Notes Did you have a drink contain ing alcohol in the past year? Yes How often did you have a dri nk containing alcohol in the past year? Never (0 point) How many drinks did you have on a typical day when you were drinking in the past year? 1 or 2 drinks (0 point) How often did you have 6 or more drinks on one occasion in the past year? Never (0 point) Points 0 Interpretation Negative Section Notes: Nonsmoker; 1 glass of wine Q D Nonsmoker; 1 glass of wine Q D Nonsmoker; 1 glass of wine Q D Nonsmoker; 1 glass of wine Q D Nonsmoker; 1 glass of wine Q D Nonsmoker; no significant al cohol use Problems Problem Type SNOMED Code ICD Code Onset Dates Problem Status W/U Status Risk Notes Problem 995615888 Encounter for screening for malignant neoplasm of colon (Z12.11) Active confirmed Problem Weight loss (115987541) Weight loss (R63.4) Active confirmed Problem Screening for malignant neoplasm of rectum (731421265) Encounter for screening for malignant neoplasm of rectum (Z12.12) Active confirmed Problem 36197059 Abdominal pain, epigastric (R10.13) Active confirmed Problem 653215389 Liver mass (R16.0) Active confirmed Problem 948724930 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 Problem 118303620 Focal nodular hyperplasia of liver (K76.89) Active confirmed Problem 96099404 Diarrhea, unspecified type (R19.7) Active confirmed Problem 863503551 Abdominal cramping (R10.9) Active confirmed Plan Of Treatment Pending Test Test Name Order Date BUN 07/28/2020 CREATININE 07/28/2020 CRP 07/28/2020 CEA 07/28/2020 CBC w DIFF 07/28/2020 SED RATE (ESR) 07/28/2020 ALPHA-FETOPROTEIN,TUMOR MARKER CELIAC PANEL #10 03/28/2023 CULTURE, STOOL 07/28/2020 MRI ABD W&WO CONTRAST 07/28/2020 MRI ABD W&WO CONTRAST 10/31/2014 STOOL WBC 07/28/2020 C DIFFICILE RFLX PCR 07/28/2020 Giardia Ag Stool EIA 07/28/2020 Ova and Parasites 07/28/2020 Future Test Test Name Order Date UPPER GI ENDOSCOPY 05/21/2015 COLONOSCOPY 05/21/2015 UPPER GI ENDOSCOPY 07/28/2020 COLONOSCOPY 07/28/2020 UPPER GI ENDOSCOPY 03/28/2023 Insurance Providers Payer Name Payer Address Payer Phone Subscriber Number Group Number Insured Name Patient Relationship to Insured Coverage Start Date Coverage End Date [facility] [address] [place], [place] [id number] ELIZABETH ZURITA Self - patient is the insured Medical (General) History Medical History History ICD Code Depression/anxiety Denies PR,DM,CVA,Lung disease,renal dise ase EGD/Flex sig in 03/2010--heal ing gastric ulcer, neg. H. pylori, ? of changes of celiac disease but celiac disease serologies were negative, flex sig neg. including biopsies Neg. 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--this was diagnosed in her mother(she had uterine cancer) and a maternal uncle(he had a head and neck cancer) as well--she was evaluated at [facility]--the patient had a neg INDUSTRIAL SERVICER w/u, including a negative uterine biopsy--they have recommended that she begin screening with colonoscopy and upper endoscopy with evaluation of the major papilla Liver mass noted in 2014 on a CAT scan--this is described as approximately 5 cm, subcapsular, and in the left lobe of the liver--she had a normal alpha-fetoprotein level, CEA level, and CA 125 level--a followup liver MRI in October 2014 described a 5 cm enhancing mass in the left lobe of the liver with mass effect on the left hepatic vein and capsular surface of the liver--it was felt to represent either a probable hepatic adenoma or focal nodular hyperplasia--it was not felt to be a hemangioma-- she was referred to the [facility]'s liver clinic for further evaluation--biopsy of liver lesion in 11/2014 at [facility] was c/w FNH, although a hepatic adenoma could not be completely ruled out--a MRI with Eovist was c/w FNH in 01/2015 at [facility] as well--they recommended a F/U liver MRI in 01/2016 and did not think this needed to be resected Colonoscopy in July of 2015 was negative for any adenomas EGD in July of 2015 revealed only a small hiatal hernia--no esophagitis nor Marrufo's esophagus; inspection of the major papilla with the duodenoscope was negative for any adenomatous nor polypoid tissue Bustillos syndrome Negative screening colonoscopy in 2020 Negative upper endoscopy in October of 2020, including a normal major papilla Left-sided breast cancer wit h surgery as below in the spring; status-post radiation treatment in the summer Surgical History Surgery Date(Month/Year) Breast augmentation 2011 Tonsils and adenoids Left-sided lumpectomy with a negative ly mph node biopsy Spring 2022
== END 2024-10-29 15:22 | disposition home or self-care (01) ==
LOC: HO.HSM 14:51
PROVIDERS: PCP Pediatrics; Visit Provider Psychiatry & Neurology Neurology
DX: F41.9 Anxiety disorder, unspecified (principal); R20.2 Paresthesia of skin; G82.20 Paraplegia, unspecified
CPT/HCPCS: 99214

== ENCOUNTER → 2024-11-01 14:57 | Outpatient (BNV) | payer BC, SELFPAY | PROVIDERS: PCP Pediatrics; Visit Provider Radiology Diagnostic Radiology | DX: M50.122 Cervical disc disorder at C5-C6 level with radiculopathy (principal); G82.20 Paraplegia, unspecified | CPT/HCPCS: 72156 ==

== ENCOUNTER 2024-11-01 14:58 | Outpatient (REF) | payer BC, SELFPAY ==
--- OUTSIDE RECORDS SUMMARY | 2023-05-16 03:30 | XMS_ITS ---
Author Organization [facility] Address [address] [place] [id number] Care Team Providers Care Monkey Keeper Name Role Phone Jean Barger MD Primary Care Provider Rogelio Samaniego [phone] Encounters Encounter Location Date Provider Diagnosis [facility] [facility] [place] [address] [place] [id number] 05/16/2023 Rogelio Elaine Other specified di sease of esophagus K22.89 ; Hiatal hernia K44.9 ; Weight loss R63.4 and Abdominal pain R10.9 Assessments Encounter Date Diagnosis (ICD Code) Assessment Notes Treatment Notes Treatment Clinical Notes Section Notes 05/16/2023 Other specified disease of esophagus (ICD-10 - K22.89) 05/16/2023 Hiatal hernia (ICD-10 - K44.9) 05/16/2023 Weight loss (ICD-10 - R63.4) 05/16/2023 Abdominal pain (ICD-10 - R10.9) Plan Of Treatment No Information Progress Notes * SKYLAR ZURITAHENRIETTAOB: 3 (44 yo F)Acc No.[id number]:05/16/2023 EGD/MAC Patient: ELIZABETH ARANA Provider: Katalina Elaine MD :1980 A ge:43 Y S ex:Female Date:05/16/2023 Address:[address] [place] [address] [id number] Pcp:Jean Barger MD Subjective: * Chief Complaints: * * Medical History: Objective: * Vitals: Assessment: * Assessment: 1. O ther specified disease of esophagus - K22.89 (Primary) 2 . H iatal hernia - K44.9 3 . W eight loss - R63.4 4 . A bdominal pain - R10.9 Plan: * Treatment: * Procedure Codes: 4 3239 UPPER GI ENDOSCOPY, BIOPSY * * The named appointment provid er may or may not be the originator of this progress note, and it is not deemed complete until electronically signed by the appointment provider. Sign off status: Pending * Provider: Katalina Elaine MD Date: 0 05/16/2023 Generated for Miri rutledge/Georgina/Jhoanitting on: 0 11/01/2024 03:03 PM EDT
--- NOTE | ~2024-11-01 | MR_ITS ---
CLINICAL HISTORY: G82.20 - Paraplegia, unspecified MR cervical spine with and without gadolinium Comparison: MR/VA/SR - MR CERVICAL SPINE WITHOUT IV CONTRAST - 12/06/22 13:05 EDT Findings: Vertebral alignment is within normal limits. No acute fractures or pathologic bone lesions. C2-C3: Normal C3-C4: Normal C4-C5: Very mild proliferation of the uncovertebral joints. No significant central canal or neural foraminal narrowing. No significant change. C5-C6: Moderate disc osteophyte complex. Moderate effacement of the anterior thecal sac. Moderate stenosis of the left neural foramen. No significant narrowing of the right neural foramen. No significant change. C6-C7: Normal C7-T1: Normal Visualized intracranial contents are unremarkable. No cervical fluid collections or masses. Cervical cord normal. IMPRESSION: 1. There are changes of spondylosis at C4-C5 and C5-C6 as above. No significant change since the prior study. No findings to explain the patient's clinical presentation. This document has been electronically signed by: Yoselin Domingo MD on 11/01/2024 16:55:48
--- NOTE | ~2024-11-01 | MR_ITS ---
CLINICAL HISTORY: G82.20 - Paraplegia, unspecified MRI thoracic spine without/with contrast Comparison: None provided Findings: Determination of thoracic vertebral levels not possible. Marker is not visible on localizer images. Disc abnormalities described below not seen on localizer images. Osteophytosis in 2 lower thoracic disc levels. This results in mild impression on anterior thecal sac. No significant canal or neural foraminal narrowing. These may be T7-8 and T9-10 levels based on ribs. Final image partially demonstrates bilateral ribs. This may be the T12 level. No other significant intervertebral disc disease. No other canal or neural foraminal narrowing. No acute bony signal abnormality. Posterior bony alignment is normal. Thoracic cord normal in course and caliber. No internal cord signal abnormality. No abnormal areas of contrast enhancement. Impression: Mild degenerative changes, otherwise unremarkable This document has been electronically signed by: Tima Arevalo MD on 11/03/2024 19:26:40
--- OUTSIDE RECORDS SUMMARY | 2024-11-01 15:03 | XMS_ITS ---
Author Name [facility] Organization Unknown Care Team Organization Name Specialty Phone Email Start Date End Da te [facility] ACO 10/02/2024 [facility] Termed, PROVIDER Primary Care 12/13/202209/13 [facility] Madeline Cullen Primary Care 08/18/2022 [facility] Jean Barger Primary Care 05/17/2022 10/02/2023 [facility] Evangelista Arce Primary Care 12/21/2021 10/02/19 24
--- OUTSIDE RECORDS SUMMARY | 2024-11-01 15:03 | XMS_ITS | Clinical Summary ---
Author Organization [address] [place] [address] [place] [phone] Phone Care Team Providers Care [employer] Consultant Name Role Phone Dionna Barger MD Primary Care Provider [phone] Allergies Active Allergy Reactions Criticality Noted Date [...] 4 Active OMEGA-3 FATTY ACIDS-FISH OIL ORAL Coolidge-3 Fatty Acids (FISH OIL BURP-LESS OR)- Take [...] 10:30 AM EDT Office Visit Adult Medicine [address] [address] Dionna Barger MD Hypothyroidism, unspecified type (Primary Dx); Screening, lipid; Screening for diabetes mellitus; Screening, anemia, deficiency, iron from Last 3 Months Immunizations Name Administration Dates Next Due DTP 08/14/1987, 4,1982,1982,1982 [id number] (Pentacel) 2mo to less than 5yo 08/14/1987 [...] PROCEDURE: HISTORICAL TONSILLECTOMY BREAST SURGERY 06/14/2011 PROCEDURE: [place] UNLISTED PROCEDURE BREAST; COMMENT: augmentation WISDOM TOOTH [...] right (HCC ) Breast cancer (CMS/HCC V24, CMS/[facility] V28) 11/06/2022 Family History Medical History Relation [...] LAB CHEMISTRY METHOD 08/13/2024 3:57 PM EDT [facility] Blood Venous blood specimen / Unknown Venipuncture / Unknown 08/13/2024 11:04 AM EDT 08/13/2024 11:04 AM EDT [facility] Neto Barger MD LAB BLOOD ORDERABLES Final Res ult [facility] [address] [place] [address], [place] [phone] * (ABNORMAL) Lipid panel with reflex to direct LDL (08/13/2024 11:04 AM EDT) Cholesterol 215(H) 0 - 200 mg/dL LAB CHEMISTRY METHOD 08/13/2024 2:19 PM EDT [facility] Triglycerides 92 0 - 150 mg/dL LAB CHEMISTRY METHOD 08/13/2024 2:19 PM EDT [facility] HDL 92 >=40 mg/dL LAB CHEMISTRY METHOD 08/13/2024 2:19 PM EDT [facility] LDL Calculated 105(H) 0 - 100 mg/dL LAB CHEMISTRY METHOD 08/13/2024 2:19 PM EDT [facility] VLDL Cholesterol Henrry 18.4 mg/dL LAB CHEMISTRY METHOD [facility] Non HDL Chol. (LDL+VLDL) 123 <145 mg/dL LAB CHEMISTRY METHOD 08/13/2024 2:19 PM EDT [facility] Chol/HDL Ratio 2.3 0.0 - 4.4 LAB CHEMISTRY METHOD 08/13/2024 2:19 PM [facility] Blood Venous blood specimen / Unknown Venipuncture / Unknown 08/13/2024 11:04 AM EDT 08/13/2024 11:04 AM EDT C Neto Barger MD LAB BLOOD ORDERABLES Final Res ult [facility] [address] [place] [address], [place] [phone] * CBC auto differential (08/13/2024 11:04 AM EDT) WBC 4.8 4.8 - 10.8 K/mcL LAB HEMETOLOGY METHOD 08/13/2024 1:07 PM [facility] RBC 4.10 3.80 - 4.80 M/mcL LAB HEMETOLOGY METHOD 08/13/2024 1:07 PM [facility] Hemoglobin 12.5 11.5 - 16.0 g/dL LAB HEMETOLOGY METHOD 08/13/2024 1:07 PM [facility] Hematocrit 37.8 35.0 - 47.0 % LAB HEMETOLOGY METHOD 08/13/2024 1:07 PM [facility] MCV 92.2 79.0 - 98.0 FL LAB HEMETOLOGY METHOD 08/13/2024 1:07 PM [facility] MCH 30.5 27.0 - 32.0 pcg LAB HEMETOLOGY METHOD 08/13/2024 1:07 PM [facility] MCHC 33.1 32.0 - 37.0 g/dL LAB HEMETOLOGY METHOD 08/13/2024 1:07 PM [facility] RDW 12.9 11.0 - 15.0 % LAB HEMETOLOGY METHOD 08/13/2024 1:07 PM [facility] Platelets 197 130 - 400 K/mcL LAB HEMETOLOGY METHOD 08/13/2024 1:07 PM [facility] MPV 10.7 7.0 - 11.0 FL LAB HEMETOLOGY METHOD 08/13/2024 1:07 PM [facility] NRBC 0.0 <1.0 % LAB HEMETOLOGY METHOD 08/13/2024 1:07 PM [facility] NRBC Absolute 0.00 <0.10 K/mcL LAB HEMETOLOGY METHOD 08/13/2024 1:07 PM [facility] Neutrophils Relative 55.7 % LAB HEMETOLOGY METHOD 08/13/2024 1:07 PM [facility] Lymphocytes Relative 33.7 % LAB HEMETOLOGY METHOD 08/13/2024 1:07 PM [facility] Monocytes Relative 7.7 % LAB HEMETOLOGY METHOD 08/13/2024 1:07 PM [facility] Eosinophils Relative 1.7 % LAB HEMETOLOGY METHOD 08/13/2024 1:07 PM [facility] Basophils Relative 0.6 % LAB HEMETOLOGY METHOD 08/13/2024 1:07 PM [facility] Immature Granulocytes Relative 0.6 % LAB HEMETOLOGY METHOD 08/13/2024 1:07 PM [facility] Neutrophils Absolute 2.69 1.50 - 7.00 K/mcL LAB HEMETOLOGY METHOD 08/13/2024 1:07 PM [facility] Lymphocytes Absolute 1.63 1.00 - 5.00 K/mcL LAB HEMETOLOGY METHOD 08/13/2024 1:07 PM EDT [facility] Monocytes Absolute 0.37 0.20 - 1.00 K/mcL LAB HEMETOLOGY METHOD 08/13/2024 1:07 PM EDT [facility] Eosinophils Absolute 0.08 0.00 - 0.50 K/mcL LAB HEMETOLOGY METHOD 08/13/2024 1:07 PM EDT [facility] Basophils Absolute 0.03 0.00 - 0.20 K/mcL LAB HEMETOLOGY METHOD 08/13/2024 1:07 PM EDT [facility] Immature Granulocytes Absolute 0.03 0.00 - 0.03 K/[facility] LAB HEMETOLOGY METHOD 08/13/2024 1:07 PM [facility] Blood Venous blood specimen / Unknown Venipuncture / Unknown 08/13/2024 11:04 AM EDT 08/13/2024 11:04 AM EDT C Neto Barger MD LAB BLOOD ORDERABLES Final Res ult [facility] [address] [place] [address], * Comprehensive metabolic panel (08/13/2024 11:04 AM EDT) Sodium 140 133 - 145 mmol/L LAB CHEMISTRY METHOD 08/13/2024 2:18 PM EDT [facility] Potassium 4.5 3.5 - 5.5 mmol/L LAB CHEMISTRY METHOD 08/13/2024 2:18 PM [facility] Chloride 103 96 - 110 mmol/L LAB CHEMISTRY METHOD 08/13/2024 2:18 PM [facility] CO2 32 21 - 32 mmol/L LAB CHEMISTRY METHOD 08/13/2024 2:18 PM EDT [facility] Anion Gap 5 3 - 11 LAB CHEMISTRY METHOD 08/13/2024 2:18 PM [facility] Glucose 76 70 - 100 mg/dL LAB CHEMISTRY METHOD 08/13/2024 2:18 PM [facility] BUN 13 5 - 25 mg/dL LAB CHEMISTRY METHOD 08/13/2024 2:18 PM [facility] Creatinine 0.68 0.50 - 1.10 mg/dL LAB CHEMISTRY METHOD 08/13/2024 2:18 PM [facility] eGFR 112 >=60 mL/min/1. 73m2 LAB CHEMISTRY METHOD 08/13/2024 2:18 PM [facility] Comment:Calculation based on the Chronic Kidney Disease Epidemiology Collaboration (CKD-EPI) equation refit without adjustment for race. BUN/Creatinine Ratio 19.1 LAB CHEMISTRY METHOD 08/13/2024 2:18 PM [facility] Calcium 8.7 8.5 - 10.5 mg/dL LAB CHEMISTRY METHOD 08/13/2024 2:18 PM [facility] AST (SGOT) 23 10 - 42 unit/L LAB CHEMISTRY METHOD 08/13/2024 2:18 PM [facility] ALT (SGPT) 42 10 - 60 unit/L LAB CHEMISTRY METHOD 08/13/2024 2:18 PM [facility] Alkaline Phosphatase 61 42 - 121 unit/L LAB CHEMISTRY METHOD 08/13/2024 2:18 PM [facility] Total Protein 6.7 6.0 - 8.0 g/dL LAB CHEMISTRY METHOD 08/13/2024 2:18 PM [facility] Albumin 3.5 3.2 - 5.0 g/dL LAB CHEMISTRY METHOD 08/13/2024 2:18 PM [facility] Total Bilirubin 0.6 0.0 - 1.4 mg/dL LAB CHEMISTRY METHOD 08/13/2024 2:18 PM [facility] Blood Venous blood specimen / Unknown Venipuncture / Unknown 08/13/2024 11:04 AM EDT 08/13/2024 11:04 AM EDT Dionna Barger MD LAB BLOOD ORDERABLES Final Res ult [facility] [address] [place] [address], * HIV Screening (09/14/2023) Pathologist [facility] HIV Screening abstracted Historical Provider HEALTH MAINTENANCE Final Result * Hepatitis C Screening (09/14/2023) Pathologist [facility] Hepatitis C Screening abstracted Historical Provider HEALTH MAINTENANCE Final Result * Cervical Cancer Screening: HPV (11/13/2013) Pathologist [facility] Cervical Cancer Screening: HPV negative, abstracted Historical Provider HEALTH MAINTENANCE Final Result from Last 3 Months or Most Recently Relevant to Health Maintenance Insurance [facility]) Care Teams [employer] Consultant Relationship Specialty Start Date End Date Dionna Barger MD [address] [place] [address] [place] [address] PCP - General 12/23/02
--- OUTSIDE RECORDS SUMMARY | 2024-11-01 15:03 | XMS_ITS | Patient Health Record ---
Author Organization [facility] Address [address] [place] [phone] Care Team Providers Care Newspaper Reporter Name Role Phone Jean Barger MD Primary Care Provider Unavail able Rogelio Elaine Unavailable [phone] Allergies Allergen (clinical drug ingredient) Drug/Non Drug [...] Omeprazole 20 MG TAKE 1 CAPSULE BY [facility] EVERY DAY Oral for 30 Active Vitamin [...] Problem Status W/U Status Risk Notes Problem 314070059 Encounter for screening for malignant neoplasm of colon (Z12.11) Active confirmed Problem Weight loss (544938924) Weight loss (R63.4) Active confirmed Problem Screening for malignant neoplasm of rectum (646889166) Encounter for screening for malignant neoplasm of rectum (Z12.12) Active confirmed Problem 73660820 Abdominal pain, epigastric (R10.13) Active confirmed Problem 643338155 Liver mass (R16.0) Active confirmed Problem 893292466 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 Problem 790445565 Focal nodular hyperplasia of liver (K76.89) Active confirmed Problem 56998668 Diarrhea, unspecified type (R19.7) Active confirmed Problem 023239687 Abdominal cramping (R10.9) Active confirmed Plan Of [...] Insured Coverage Start Date Coverage End Date [facility] [id number] [place], [place] [id number] ELIZAEBTH ZURITA Self - patient is the insured Medical (General) History Medical History History ICD Code Depression/anxiety Denies [place],DM,CVA,Lung disease,renal dise ase EGD/Flex sig in 03/2010--heal [...] neck cancer) as well--she was evaluated at [facility]--the patient had a 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
--- OUTSIDE RECORDS SUMMARY | 2024-11-01 15:03 | XMS_ITS | Clinical Summary ---
Author Organization [facility] Address [address] [place] [id number] Phone Care Team Providers Care Agate Setter Name Role Phone Dionna Barger MD Primary Care Provider [phone] Self-Referred, Patient Unavailable Unavailab le Allergies Active [...] W/OUT INTERPRETATION Final Result Performing Organization Address City/State/[facility] Co de Phone Number [facility] from Last 3 Months or Most Recently Relevant to Health Maintenance Insurance OUT [facility] PPO [employer]UE [employer]OSS OUT OF STATE PPO BL[employer]OSS OUT OF STATE PPO [employer] [place]OSS OUT OF STATE PPO OUT OF STATE [place] [address] [place] [address] OUT OF STATE PPO Member Subscriber Plan / Payer ( fective 2021-Present) Name:Daisy Zurita Relation to Subscriber:Spouse Name:KELVIN ZURITA Date of :1974 (Home) Address: [address] [place] [id number] Payer ID:[id number] (NAIC) Type:PPO Address: [place] [id number] BLUE [place]OSS OUT OF STATE PPO [place]OSS OUT OF STATE PPO BLUE [place]OSS OUT OF STATE PPO Care Teams Agate Setter Relationship Specialty Start Date End Date Dionna Barger MD [address] [place] [id number] PCP - General Internal Medicine 06/11/18 Self-Referred, Patient 06/06/22 Additional Source Comments The information contained in this document represents components of the legal health record. It is not the complete legal health record.[facility]
== END 2024-11-01 14:59 | disposition home or self-care (01) ==
LOC: HO.MRI 14:58
PROVIDERS: PCP Pediatrics; Visit Provider Psychiatry & Neurology Neurology
DX: G82.20 Paraplegia, unspecified (principal)
CPT/HCPCS: 72156; 72157; A9585

== ENCOUNTER 2025-02-01 08:27 | Outpatient (REF) | payer BC, SELFPAY ==
--- OUTSIDE RECORDS SUMMARY | 2025-01-31 13:00 | XMS_ITS | Encounter Summary ---
Author Organization [facility] Address [id number] [place] [address] Care Team Providers Care Vertical Contour Band Saw Operator Name Role Phone Dionna Barger MD Primary Care Provider [phone] Reason for Referral * Imaging (Routine) - Pending Review Specialty Diagnoses / Procedures Referred By Contantony villalobos Referred To Contact Radiology Diagnoses Neck pain Lymph node enlargement Procedures US Head Neck Soft Tissue Joshua Crowe PA [address], [place] Phone: tel: fax: External Performed Referral ID Status Reason Start Date Expiration Date V isits Requested Visits Authorized [id number] Pending Review 01/31/2025 01/31/2026 1 1 Reason for Visit * Reason Comments Mass Encounter Details Date Type Department Care Team (Late st Contact Info) Description 01/31/2025 1:00 PM EST Office Visit Adult Medicine [facility] [address] [place] [phone] Joshua Crowe PA [address], [place] Neck pain (Primary Dx); Lymph node enlargement; Sinus pressure Social History Tobacco Use Types Packs/Day Years Used Date Smoking Tobacco: Never Smokeless Tobacco: Never Alcohol Use Standard Drinks/Week Comments Yes 5.8 (1 standard drink = 0.6 oz p ure alcohol) Comments No Sex and Gender Information Value Date Recorded Sex Assigned at Not on file Legal Sex Female 8:06 AM EST Gender Identity Not on file Sexual Orientation Not on file documented as of this encounter Last Filed Vital Signs Vital Sign Reading Time Taken Comments Blood Pressure 100/64 01/31/2025 1:07 PM EST Pulse 90 01/31/2025 1:07 PM EST Temperature - - Respiratory Rate - - Oxygen Saturation 99% 01/31/2025 1:07 PM EST Inhaled Oxygen Concentration - - Weight 67.6 kg (149 lb) 01/31/2025 1:07 PM EST Height - - Body Mass Index 28.15 08/13/2024 10:34 AM EDT documented in this encounter Progress Notes * CINDY Garcia - 01/31/2025 1:00 PM EST CHIEF COMPLAINT: Mass IDENTIFIER: Daisy Elizabeth is a 44 y.o. old female. HPI: History of Present Illness The patient presents for evaluation of multiple symptoms affecting her neck, ear, throat, and eyes. Neck Pain - Painful, hard area on her left upper neck radiating to her ear - Intermittent tinnitus - No hearing loss - Pain managed with Tylenol Throat Sensation - Sensation of foreign body in throat without dysphagia - Self-management with Neti rinses and steam inhalation has provided minimal relief Sinus Issues - Recent cold and chronic sinus issues - History of chronic sinusitis and cobblestone throat causing nocturnal coughing and fatigue - Uncertain about postnasal drip Eye Condition - Eyes inflamed, possibly autoimmune inflammatory condition per eye doctor Occupation: CAT scan auto brake technician History of breast cancer 2 years posttreatment ROS: GENERAL: Negative for malaise, significant weight loss and fever RESPIRATORY: No cough, wheezing or shortness of breath CARDIOVASCULAR: Negative for chest pain, leg swelling and palpitations GI: Negative for abdominal discomfort, changes in bowel habits, blood in stool or black stools ENDOCRINE: Negative for cold or heat intolerance, polyuria, polydipsia and goiter NEURO: No persistent headache, fainting, seizures, strokes, TIAs, weakness, numbness or tingling PAST MEDICAL HISTORY: Patient Active Problem List Diagnosis Date Noted Breast cancer ([facility] V24, [facility] V28) 11/06/2022 Hypothyroidism 12/22/2021 Dyspareunia, female 04/10/2020 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 Fear of flying 07/24/[address] scan 10/29/2014 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 Anxiety 05/14/2014 Neck pain 08/10/2012 Depression 12/22/2007 Irritable bowel 12/22/2007 SOCIAL HISTORY: Social History Tobacco Use Smoking status: Never Smokeless tobacco: Never Substance Use Topics Alcohol use: Yes Alcohol/week: 5.8 standard drinks of alcohol FAMILY HISTORY: Family Status Relation Name Status Mother Alive Father Alive Brother Alive MGM Alive MGF PGM Alive PGF Uncle (Not Specified) Father's vinny (Not Specified) Mother's vinny (Not Specified) Other (Not Specified) No partnership data on file Family History[1] ACTIVE MEDICATIONS: Medications Taking[2] ALLERGIES: Codeine PHYSICAL EXAM: Blood pressure 100/64, pulse 90, weight 67.6 kg (149 lb), SpO2 99%. Body mass index is 28.15 kg/m??. Plan is deferred until next visit APPEARANCE: Alert and in no acute distress EYES: PERRLA, conjunctiva and sclera normal EARS: External ears normal. Canals clear. TMs normal. NOSE/SINUS: Nares normal. Septum midline. Mucosa normal. No drainage or sinus tenderness MOUTH/THROAT: no erythema, lesions, or exudates NECK: Firm tender lymph node just anterior to the mastoid under the left ear HEART: RRR with normal S1 and S2, no murmurs, no gallops, no JVD appreciated LUNG: clear to auscultation bilaterally NEURO: Awake, alert and oriented x 3 and Cranial nerves II-XII grossly intact LABS: Lab Results Component Value Date WBC 4.8 08/13/2024 HGB 12.5 08/13/2024 HCT 37.8 08/13/2024 MCV 92.2 08/13/2024 PLT 197 08/13/2024 Lab Results Component Value Date NA 140 08/13/2024 K 4.5 08/13/2024 CL 103 08/13/2024 CO2 32 08/13/2024 GLUCOSE 76 08/13/2024 BUN 13 08/13/2024 CREATININE 0.68 08/13/2024 CALCIUM 8.7 08/13/2024 PROT 6.7 08/13/2024 ALBUMIN 3.5 08/13/2024 BILITOT 0.6 08/13/2024 AST 23 08/13/2024 ALT 42 08/13/2024 ALKPHOS 61 08/13/2024 EGFR 112 08/13/2024 IMPRESSION: 1. Neck pain 2. Lymph node enlargement 3. Sinus pressure PLAN: I have obtained verbal consent from Daisy Elizabeth prior to the recording. I have advised Daisy Leonila Elizabeth that she may refuse the recording and require the recording to be turned off at any time during this encounter. Assessment & Plan 1. Neck mass: - Hard area on neck with ear pain upon palpation - No redness or dysphagia on exam - Plan: - Blood work for inflammatory markers - Neck ultrasound - Possible CT scan with contrast if necessary 2. Chronic sinusitis: - Chronic sinus issues, postnasal drip, nocturnal cough, eye discomfort - Plan: - [place]roso sinus x-ray today Discussed signs and symptoms warranting reevaluation. Patient expressed verbal understanding and consents to the plan as outlined. Followup as necessary. This note was created using dictation software and may contain syntax and grammar errors. Orders Placed This Encounter Procedures US Head Neck Soft Tissue XR Paranasal Sinuses 3+ Views CBC and differential C-reactive protein ADDITIONAL ORDERS: US HEAD NECK SOFT TISSUE CINDY Garcia on 01/31/2025 at 1:46 PM EST [1] Family History Problem Relation Name Age of Onset Hypertension Mother Other (Other: Endometrial adenocarcinoma) Mother 58 + bustillos syndrome (diagnosed 2014) Diabetes Mother Lung cancer Mother Hyperlipidemia Father Mental illness Father Depression Hypertension Father No Known Problems Brother Other (Other: eye problem) Maternal Grandmother ? cataracts Other (Other: accident) Maternal Grandfather in plane crash at 27 Osteoporosis Paternal Grandmother Arthritis Paternal Grandmother COPD Paternal Grandfather smoker Lung cancer Paternal Grandfather smoker Other cancer Uncle 45 maternal, head and neck Brain cancer Father's side 7 cousin Colon cancer Mother's side 60 Great Uncle Breast cancer Other paternal great Grandmother [2] No outpatient medications have been marked as taking for the 01/31/25 encounter (Office Visit) withCINDY Garcia. documented in this encounter Plan of Treatment Scheduled Orders Name Type Priority Associated Diagnoses Orde r Schedule US Head Neck Soft Tissue Imaging Routine Neck pain Lymph node enlargement Expected: 01/31/2025, Expires: 01/31/2026 documented as of this encounter Results * XR Paranasal Sinuses 3+ Views (01/31/2025 1:55 PM EST) Anatomical Region Laterality Modality Head and Neck Radiographic Salena ging 01/31/2025 6:53 PM EST Impressions 01/31/2025 6:53 PM EST Patency of the paranasal sinuses -------- FINAL REPORT -------- Dictated By: Elvie Verduzco Dictated Date: 01/31/2025 18:53 ET Assigned Physician: Elvie Verduzco Reviewed and Electronically Signed By: Elvie Verduzco Signed Date: 01/31/2025 18:53 ET Workstation ID: [id number] Transcribed By: Self Edit Transcribed Date: 01/31/2025 18:53 ET Narrative 01/31/2025 6:53 PM EST EXAMINATION: XR PARANASAL SINUSES 3+ VIEWS 01/31/2025 1:45 PM Patient : 1980 CLINICAL DATA/INDICATIONS: sinus pressure COMPARISON: None FINDINGS: 3 views of the paranasal sinuses demonstrates overall patency of the visualized sinuses. The orbits are grossly intact. No acute calvarial fractures are identified. The visualized mandible is grossly intact. Procedure Note Elvie Verduzco MD - 01/31/2025 EXAMINATION: XR PARANASAL SINUSES 3+ VIEWS 01/31/2025 1:45 PM Patient :1980 CLINICAL DATA/INDICATIONS: sinus pressure COMPARISON: None FINDINGS: 3 views of the paranasal sinuses demonstrates overall patency of thevisualized sinuses. The orbits are grossly intact. No acute calvarialfractures are identified. The visualized mandible is grossly intact. IMPRESSION: Patency of the paranasal sinuses -------- FINAL REPORT -------- Dictated By: Elvie Verduzco Dictated Date: 01/31/2025 18:53 ET Assigned Physician: Elvie Verduzco Reviewed and Electronically Signed By: Elvie Verduzco Signed Date: 01/31/2025 18:53 ET Workstation ID: [id number] Transcribed By: Self Edit Transcribed Date: 01/31/2025 18:53 ET us Joshua WHITE IMG XR PROCEDURES Final Result * C-reactive protein (01/31/2025 1:38 PM EST) C-Reactive Protein <0.50 <=0.50 mg/dL 01/31/2025 5:52 PM EST [facility] Blood Venous blood specimen / Unknown Venipuncture / Unknown 01/31/2025 1:38 PM EST 01/31/2025 1:45 PM EST Joshua WHITE LAB BLOOD ORDERABLES Final Res ult [facility] [address] [place] [address], documented in this encounter Visit Diagnoses Diagnosis Neck pain- Primary Cervicalgia Lymph node enlargement Enlargement of lymph nodes Sinus pressure Other diseases of nasal cavity and sinuses Lymph node enlargement Enlargement of lymph nodes Sinus pressure Other diseases of nasal cavity and sinuses documented in this encounter Discontinued Medications Medication Sig Discontinue Reason Start Date End Da te omeprazole (PriLOSEC) [address] capsule Take 1 capsule (20 mg total) by mouth 1 (one) time each day. 04/19/2023 01/31/2025 berberin/grape/grapefrui t/bear (BERBEMYCIN ORAL) Take by mouth. 025 documented as of this encounter Additional Health Concerns Assessment Noted Time PHQ-9 Depression Total Score: 0 02/01/20 25 1:07 PM EST documented as of this encounter Care Teams Vertical Contour Band Saw Operator Relationship Specialty Start Date End Date Dionna Barger MD [address] [place] [address] PCP - General 12/23/02 documented as of this encounter
--- OUTSIDE RECORDS SUMMARY | 2025-01-31 13:40 | XMS_ITS | Encounter Summary ---
Author Organization [facility] Address [address] [place] [address] Care Team Providers Care Facilities Officer Name Role Phone Dionna Barger MD Primary Care Provider [phone] Encounter Details Date Type Department Care Team (Late st Contact Info) Description 01/31/2025 1:40 PM EST Lab Draw Station - [address] [phone] Neck pain; Lymph node enlargement Social History Tobacco Use Types Packs/Day Years [...] on file documented as of this encounter Plan of Treatment Not on file documented as of this encounter Procedures Procedure Name Priority Date/Time Associated Diagnosis Comments CBC WITH AUTO DIFFERENTIAL Routine 01/31/2025 1:38 PM EST Neck pain Lymph node enlargement CBC AND DIFFERENTIAL Routine 01/31/2025 1:38 PM EST Neck pain Lymph node enlargement C-REACTIVE PROTEIN Routine 01/31/2025 1: 38 PM EST Neck pain Lymph node enlargement documented in this encounter Results * (ABNORMAL) CBC auto differential (01/31/2025 1:38 PM EST) WBC 5.9 4.8 - 10.8 K/mcL LAB HEMETOLOGY METHOD 01/31/2025 5:40 PM [facility] RBC 4.30 3.80 - 4.80 M/mcL LAB HEMETOLOGY METHOD 01/31/2025 5:40 PM [facility] Hemoglobin 13.0 11.5 - 16.0 g/dL LAB HEMETOLOGY METHOD 01/31/2025 5:40 PM [facility] Hematocrit 39.3 35.0 - 47.0 % LAB HEMETOLOGY METHOD 01/31/2025 5:40 PM [facility] MCV 92.5 79.0 - 98.0 FL LAB HEMETOLOGY METHOD 01/31/2025 5:40 PM [facility] MCH 30.6 27.0 - 32.0 pcg LAB HEMETOLOGY METHOD 01/31/2025 5:40 PM [facility] MCHC 33.1 32.0 - 37.0 g/dL LAB HEMETOLOGY METHOD 01/31/2025 5:40 PM [facility] RDW 13.1 11.0 - 15.0 % LAB HEMETOLOGY METHOD 01/31/2025 5:40 PM [facility] Platelets 222 130 - 400 K/mcL LAB HEMETOLOGY METHOD 01/31/2025 5:40 PM [facility] MPV 10.5 7.0 - 11.0 FL LAB HEMETOLOGY METHOD 01/31/2025 5:40 PM [facility] NRBC 0.0 <1.0 % LAB HEMETOLOGY METHOD 01/31/2025 5:40 PM [facility] NRBC Absolute 0.00 <0.10 K/mcL LAB HEMETOLOGY METHOD 01/31/2025 5:40 PM [facility] Neutrophils Relative 55.8 % LAB HEMETOLOGY METHOD 01/31/2025 5:40 PM [facility] Lymphocytes Relative 35.4 % LAB HEMETOLOGY METHOD 01/31/2025 5:40 PM [facility] Monocytes Relative 5.3 % LAB HEMETOLOGY METHOD 01/31/2025 5:40 PM [facility] Eosinophils Relative 2.4 % LAB HEMETOLOGY METHOD 01/31/2025 5:40 PM [facility] Basophils Relative 0.3 % LAB HEMETOLOGY METHOD 01/31/2025 5:40 PM [facility] Immature Granulocytes Relative 0.8 % LAB HEMETOLOGY METHOD 01/31/2025 5:40 PM [facility] Neutrophils Absolute 3.29 1.50 - 7.00 K/mcL LAB HEMETOLOGY METHOD 01/31/2025 5:40 PM [facility] Lymphocytes Absolute 2.09 1.00 - 5.00 K/mcL LAB HEMETOLOGY METHOD 01/31/2025 5:40 PM [facility] Monocytes Absolute 0.31 0.20 - 1.00 K/mcL LAB HEMETOLOGY METHOD 01/31/2025 5:40 PM [facility] Eosinophils Absolute 0.14 0.00 - 0.50 K/mcL LAB HEMETOLOGY METHOD 01/31/2025 5:40 PM [facility] Basophils Absolute 0.02 0.00 - 0.20 K/mcL LAB HEMETOLOGY METHOD 01/31/2025 5:40 PM [facility] Immature Granulocytes Absolute 0.05(H) 0.00 - 0.03 K/mcL LAB HEMETOLOGY METHOD 01/31/2025 5:40 PM [facility] Blood Venous blood specimen / Unknown Venipuncture / Unknown 01/31/2025 1:38 PM EST 01/31/2025 1:45 PM EST us Joshua WHITE LAB BLOOD ORDERABLES Final Res ult [facility] [address] [place] [address], * C-reactive protein (01/31/2025 1:38 PM EST) C-Reactive Protein <0.50 <=0.50 mg/dL 01/31/2025 5:[address] [facility] Blood Venous blood specimen / Unknown Venipuncture / Unknown 01/31/2025 1:38 PM EST 01/31/2025 1:45 PM EST Joshua WHITE LAB BLOOD ORDERABLES Final Res ult Performing Organization Address [facility]/ZIP Co de Phone Number [facility] [address] [place] [address], documented in this encounter Visit Diagnoses Diagnosis Neck pain Cervicalgia Lymph node enlargement Enlargement of lymph nodes documented in this encounter Additional Health Concerns Assessment Noted Time PHQ-9 Depression Total Score: 0 02/01/20 25 1:07 PM EST documented as of this encounter Care Teams Facilities Officer Relationship Specialty Start Date End Date Dionna Barger MD [address] [place] [id number] PCP - General 12/23/02 documented as of this encounter
--- OUTSIDE RECORDS SUMMARY | 2025-01-31 13:45 | XMS_ITS | Encounter Summary ---
Author Organization [facility] Address [address] [place] [address] Care Team Providers Care Steamtable Worker Name Role Phone Dionna Barger MD Primary Care Provider [phone] Encounter Details Date Type Department Care Team (Latest Contact Info) Description 01/31/2025 1:45 PM EST - 01/31/2025 11:59 PM EST Hospital Encounter [place] [address] [place] [address] Lymph node enlargement; Sinus pressure Discharge Disposition: Home or Self Care Social History Tobacco Use Types Packs/Day Years [...] on file documented as of this encounter Medications at Time of Discharge DIETARY SUPPLEMENT ORAL Nutritional Supplements (VITAMIN D BOOSTER OR)- Take by mouth. escitalopram (LEXAPRO) 20 mg tablet Take 1 tablet (20 mg total) by mouth 1 (one) time each day. fluticasone propionate (FLONASE) 50 mcg/actuation nasal spray 2 Sprays by Nasal route daily. 02/25/2015 hydrOXYzine HCL (ATARAX) 25 mg tablet Take 1 Tablet by mouth at bedtime as needed (sleep). Lactobacillus acidophilus (PROBIOTIC ACIDOPHILUS ORAL) Take by mouth. levothyroxine (SYNTHROID, LEVOTHROID) 50 mcg tablet TAKE 1 TABLET BY MOUTH EVERY DAY 90 tablet 1 08/21/2024 magnesium hydroxide (MAGNESIA ORAL) Take by mouth. naltrexone 3 mg capsule Take 1 capsule (3 mg total) by mouth. [place]ME[place]-3 FATTY ACIDS-FISH OIL ORAL [place]-3 Fatty Acids (FISH OIL BURP-LESS OR)- Take by mouth. documented as of this encounter Discharge Disposition Disposition Code Departure Means Destination Home or Self Care documented in this encounter Plan of Treatment Not on file documented as of this encounter Procedures Procedure Name Priority Date/Time Associated Diagnosis Comments XR PARANASAL SINUSES 3+ VIEWS Routine 01/31/2025 1:55 PM EST Lymph node enlargement Sinus pressure documented in this encounter Results * XR Paranasal Sinuses [...] Signed Date: 01/31/2025 18:53 ET Workstation ID: [id number] Transcribed By: Self Edit Transcribed Date: 01/31/2025 [...] Signed Date: 01/31/2025 18:53 ET Workstation ID: [id number] Transcribed By: Self Edit Transcribed Date: 01/31/2025 18:53 ET Joshua WHITE IMG XR PROCEDURES Final Result documented in this encounter Visit Diagnoses Diagnosis Lymph node enlargement Enlargement of lymph nodes Sinus pressure Other diseases of nasal cavity and sinuses documented in this encounter Additional Health Concerns Assessment Noted Time PHQ-9 Depression Total Score: 0 02/01/20 25 1:07 PM EST documented as of this encounter Care Teams Steamtable Worker Relationship Specialty Start Date End Date Dionna Barger MD [address] [place] [id number] PCP - General 12/23/02 documented as of this encounter
--- NOTE | ~2025-02-01 | US_ITS ---
EXAMINATION: US THYROID CLINICAL INFORMATION: [Cervical lymph node around the left parotid gland area. COMPARISON: None available. TECHNIQUE: Linear transducer claudio-scale and color Doppler examination with attention to the region of the thyroid. FINDINGS: There is a small hypoechoic oval area measuring 0.5 x 0.2 x 0.4 cm likely a small lymph node. Minimal peripheral vascular flow seen. Central medulla is absent likely due to small size and it lies adjacent to the parotid gland. There is a 1.4 x 0.5 x 0.6 cm hypoechoic lesion slightly inferior to the left parotid gland with punctate flow along the posterior aspect. A benign central medullary is noted. It appears benign. US/US soft tiss head and/or neck IMPRESSION: The 1.4 cm lymph node appears benign. The smaller hypoechoic lesion adjacent to the left parotid gland is likely benign small lymph node. Electronically signed by: Umer Cabrera MD 02/03/2025 09:11 AM [facility]
--- OUTSIDE RECORDS SUMMARY | 2025-02-01 08:29 | XMS_ITS | Encounter Summary ---
Author Organization [facility] Address [address] [place] [address] Care Team Providers Care Manager Telemetry Name Role Phone Dionna Barger MD Primary Care Provider [phone] Encounter Details Date Type Department Care Team ([facility] st Contact Info) Description 01/31/2025 Results Follow-Up Adult Medicine [facility] [address] [place] [phone] Joshua Crowe PA [address] [place] [address] Social History Tobacco Use Types Packs/Day Years [...] on file documented as of this encounter Visit Diagnoses Not on filedocumented in this encounter Additional Health Concerns Assessment Noted Time PHQ-9 Depression Total Score: 0 02/01/20 25 1:07 PM EST documented as of this encounter Care Teams Manager Telemetry Relationship Specialty Start Date End Date Dionna Barger MD [address] [place] [address] PCP - General 12/23/02 documented as of this encounter
--- OUTSIDE RECORDS SUMMARY | 2025-02-01 08:29 | XMS_ITS | Data Portability ---
Author Organization [place] [facility],, GENESIS BRICEÑO MD Address [address] [address] Care Team Providers Care School Laboratory Technician Name Role Phone DILIP LANDEROS Primary Care Provider Assessment No assessment recorded. Plan of Treatment Reminders Order Date Submit Date Provider Last Modified By Organization Details Last Modified Time Details Appointments ANNUAL EXAM 2025 09:20A M Genesis Briceño MD Not available Not available Not available Lab cytology report, thin prep, smear or scraping, cervical or vaginal 2024 025 ESTER [facility] (Centralized Electronic Ordering - All Locations), Patient Can Go To The Location Of Their Choice, [id number] 02/26/2024 16:10:57 urinalysi s, dipstick 2023 024 [email or web address] 1 In-Office Order, Internal Use Only DO Not Attach Compendium DO Not Attach Compendium, Do Not Delete/merge, [id number] 06/07/2023 11:31:24 culture, urine 2023 024 ESTER [facility] (Centralized Electronic Ordering - All Locations), Patient Can Go To The Location Of Their Choice, [id number] 06/09/2023 06:05:26 CBC w/ auto diff 2023 024 [email or web address] [facility] (Centralized Electronic Ordering - All Locations), Patient Can Go To The Location Of Their Choice, [id number] 11/17/2023 07:34:53 test, urine 2023 024 [email or web address] 1 In-Office Order, Internal Use Only DO Not Attach Compendium DO Not Attach Compendium, Do Not Delete/merge, [id number] 03/22/2023 09:30:13 wet mount, vaginal 2023 024 [email or web address] 1 In-Office Order, Internal Use Only DO Not Attach Compendium DO Not Attach Compendium, Do Not Delete/merge, [id number] 03/14/2023 13:47:40 urinalysi s, dipstick 2023 024 [email or web address] 1 In-Office Order, Internal Use Only DO Not Attach Compendium DO Not Attach Compendium, Do Not Delete/merge, [id number] 03/14/2023 13:47:42 culture, urine 2023 024 ESTER [facility] (Centralized Electronic Ordering - All Locations), Patient Can Go To The Location Of Their Choice, [id number] 03/16/2023 07:09:08 Referral pelvic floor therapy referral - patient has not been able to initiate sexually active after hysterect shravan in 11/06 because of involunta ry vaginospa sm, please help her to improve this, as she would like to be able to have comfortab le relations with her again 2024 025 ESTER [facility], [address] [place] [address], [place], [address], 04/17/2024 09:18:46 Procedures colposcop y of cervix and vagina (PROC) 2023 024 [email or web address] 1 In-Office Order, Internal Use Only DO Not Attach Compendium DO Not Attach Compendium, Do Not Delete/merge, [id number] 03/22/2023 09:30:11 Surgeries None recorded. Imaging MAMMO, screening , digital, bilateral - Breast Aspiratio n and/or Biopsy if needed 2024 025 harmony [facility], [address], [address], [place], [address], 02/21/2024 12:17:07 Medication Orders None recorded. Patient TargetsNo targets recorded. Patient Instructions Encounter Date Encounter Id Patient Instructions Last Modified By Organization Details Last Modified Time 03/14/2023 [id number] urinary tract infection in women information Not available 03/14/2023 13:47:40 She is here for a complaint of vaginal discharge, pruritus, and dysuria. she notes the vaginal discharge is stringy. She has been using boric acid suppositories at least 3 times a week for at least a month. She is also taking an oral vaginal probiotic nad also using a vaginal probiotic vaginally that she got from her edger automatic. She is seeing a urologist for her chronic urinary issues. They may be doing a cystoscopy soon. She is seeing the gynecological assistant oncologist and they plan to do the hysterectomy, this year sometime. She has numbness in her tongue, tinnitus, gi upset, and some other issues for which she is seeing her PCP, her GI doctor, and her neurologist. ____ note from 11/2022: She is here for annual exam, has chronic pelvic pain, dyspareunia, and pelvic floor issues, had been going to pelvic floor therapy and it was helping, wishes to restart. She still has the referrals in place. She had been taking the OCP but stopped a year or more ago , is not sexualy active due to dyspareunia. She carries the mutation for Gipson Syndrome, her GI doctor advised her to get colonoscopy every 3 years. she is due again next year. She was advised to have a hysterectomy with gynecological assistant oncology, went to meet with them but declined at that time but has changed her mind and has an upcoming appointment with gynecological assistant oncology for this. She has salvador having issues with recurrent yeast and bv. She saw functional medicine who has her eating yogurt, using vaginal probiotics, and boric acid. She is not having symptoms at this time. She was given flagyl oral pills on 10/29/22 at a walk in, she notes she developed shooting pains and neuropathy from that, she saw a neurologist yesterday and he advised her that it could be from the flagyl and likely would fade over time. She is tearful, and understandably frustrated with all these health issues. Last pelvic sonogram was 10/26/22 and normal except noting her arcuate uterus and also two small ovarian cysts. _ Urine dip is negative, check urine culture. Wet carmela are negative for vaginal pathogens. No significant WBC either. We had a long discussion about all this. Her vaginal senthil is normal at this time. We reviewed a mail-away test that she took of her vaginal senthil, it showed multiple organisms and low lactobacills and higher gi bacteria than normal, according to this test. She is reassured that on wet carmela she does not have bacterial vaginosis. She is advised to continue the boric acid, the vaginal probiotic, and eating yogurt. She will follow up with her other doctors as needed. All questions answered. Not available 03/14/2023 14:27:23 03/22/2023 [id number] colposcopy: what to expect at home Not available 03/22/2023 09:30:11 human papillomavirus (HPV): care instructions Not available 03/22/2023 09:30:11 tinea versicolor : care instructions Not available 03/22/2023 09:30:11 She is here for repeat colpo after LSIL. She was advised we could just repeat pap at next annual but she has an underlying anxiety disorder and really wanted to recheck sooner, so it has been 3 months since last colpo. She also notes a rash in her groin, she appears to have tinea versicolor in the mons pubis area. Advised to use Selsun blue shampoo here daily and see a roll edge stitcher hand in 4 weeks if not improving. Colpo shows the same, focal LSIL as noted last visit, no need ot repeat testing until annual in 12/06 for pap. she understands and agrees. Not available 03/22/2023 09:29:05 06/07/2023 [id number] urinary tract infection in women information Not available 06/07/2023 11:31:24 She is here for a complaint of fatigue and lymphadenopathy in her groin, pain in her cervix, dysuria, and a sense of pressure in her pelvis. Her last pelvic sonogram was 01/05 and negative. She has Gipson Syndrome, is seeing a gynecological assistant oncologist in a few weeks for repeat pelvic sonogram and also discussion of hysterectomy. Her urine dip is negative, check culture. She does have mild adenopathy in her groin, check CBC. No evidence of pelvic pain or mass on exam, though is very constipated. She had a fatigue work up a few weeks ago and Lyme was negative, and thyroid was normal. She notes her ANNALISE was mildly elevated and they are looking into that. Await test results. Not available 06/07/2023 11:39:23 02/21/2024 [id number] learning about healthy weight Not available 02/21/2024 11:14:54 vaginismus: care instructions Not available 02/21/2024 11:20:18 She is here for annual, had her hysterectomy in 11/06, is not having the pelvic pain anymore but still wonders if she would have the dyspareunia, so she has not been sexually active with her yet. She would like to go back to pelvic floor therapy as she feels this will be useful to her to be able to relax and become sexually active again. Note from 2022: She is here for annual exam, has chronic pelvic pain, dyspareunia, and pelvic floor issues, had been going to pelvic floor therapy and it was helping, wishes to restart. She still has the referrals in place. She had been taking the OCP but stopped a year or more ago , is not sexualy active due to dyspareunia. She carries the mutation for Gipson Syndrome, her GI doctor advised her to get colonoscopy every 3 years. she is due again next year. She was advised to have a hysterectomy with gynecological assistant oncology, went to meet with them but declined at that time but has changed her mind and has an upcoming appointment with gynecological assistant oncology for this. She has salvador having issues with recurrent yeast and bv. She saw functional medicine who has her eating yogurt, using vaginal probiotics, and boric acid. She is not having symptoms at this time. She was given flagyl oral pills on 10/29/22 at a walk in, she notes she developed shooting pains and neuropathy from that, she saw a neurologist yesterday and he advised her that it could be from the flagyl and likely would fade over time. She is tearful, and understandably frustrated with all these health issues. Last pelvic sonogram was 10/26/22 and normal except noting her arcuate uterus and also two small ovarian cysts. She appears to be doing well. Monthly self breast exam was taught, and stressed, and is advised to call if she discovers any new mass in the breast. Will refer back to pelvic floor therapy. she is advised that I see no reason why she should not be able to be comfortably sexually active, once she gets over her learned response. 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 Value s obtai angelita with other assay metho ds or kits canno t be used inter lombardi eably . Use resul ts with cauti on when patie nt is on monoc lonal antib reagan thera py. Not Available [facility] (Centralized Electronic Ordering - All Locations) Patient Can Go To The Location Of Their Choice, [id number] 03/07/2023 22:59:44 03/07/1903/07/2023 FREE T4 free T4 1.71 NG/dL (0.70- 1.80) Not Available [facility] (Centralized Electronic Ordering - All Locations) Patient Can Go To The Location Of Their Choice, [id number] 03/07/2023 22:59:46 03/07/19 24 03/07/2023 TSH TSH 2.17 uIU/m L (0.4-4 .2) Not Available [facility] (Centralized Electronic Ordering - All Locations) Patient Can Go To The Location Of Their Choice, 03/07/2023 22:59:47 03/14/19 24 03/14/2023 URINE CULTU RE special requests NONE Not Available [facility] ([facility] Order[facility] - All Locations) Patient Can Go To The Location Of Their Choice, 03/16/2023 07:09:08 03/14/19 24 03/15/2023 URINE CULTU RE specimen description URINE Not Available [facility] ([facility] - [facility] Locations) Patient Can Go To The Location Of Their Choice, 03/16/2023 07:09:08 03/14/19 24 03/16/2023 URINE CULTU RE culture NO GROWTH Not Available [facility] ([facility]ized Electronic Ordering - All Locations) Patient Can Go To The Location Of Their Choice, 03/16/2023 07:09:08 03/14/19 24 03/16/2023 URINE CULTU RE report status FINAL 2023 Not Available [facility] (Centralized Electronic Ordering - All Locations) Patient Can Go To The Location Of Their Choice, 03/16/2023 07:09:08 03/14/19 24 03/14/2023 wet mount , vagin al Clue Cells negati ve Not Available In-Office Order Internal Use Only DO Not Attach Compendium DO Not Attach Compendium, Do Not Delete/merge, 03/14/2023 13:47:27 03/14/19 24 03/14/2023 wet mount , vagin al Trichomonas negati ve Not Available In-Office Order Internal Use Only DO Not Attach Compendium DO Not Attach Compendium, Do Not Delete/merge, 03/14/2023 13:47:27 03/14/19 24 03/14/2023 wet mount , vagin al Hyphae negati ve Not Available In-Office Order Internal Use Only DO Not Attach Compendium DO Not Attach Compendium, Do Not Delete/merge, 03/14/2023 13:47:27 03/14/19 24 03/14/2023 wet mount , vagin al atrophic epithelium negati ve Not Available In-Office Order Internal Use Only DO Not Attach Compendium DO Not Attach Compendium, Do Not Delete/merge, 03/14/2023 13:47:27 03/14/19 24 03/14/2023 urina lysis , dipst ick GLU Negati ve Not Available In-Office Order Internal Use Only DO Not Attach Compendium DO Not Attach Compendium, Do Not Delete/merge, 03/14/2023 13:15:48 03/14/19 24 03/14/2023 urina lysis , dipst ick RAHUL Negati ve Not Available In-Office Order Internal Use Only DO Not Attach Compendium DO Not Attach Compendium, Do Not Delete/merge, 03/14/2023 13:15:48 03/14/19 24 03/14/2023 urina lysis , dipst ick KET Negati ve Not Available In-Office Order Internal Use Only DO Not Attach Compendium DO Not Attach Compendium, Do Not Delete/merge, 03/14/2023 13:15:48 03/14/19 24 03/14/2023 urina lysis , dipst ick SG 1.005 Not Available In-Office Order Internal Use Only DO Not Attach Compendium DO Not Attach Compendium, Do Not Delete/merge, 03/14/2023 13:15:48 03/14/19 24 03/14/2023 urina lysis , dipst ick BLO Negati ve Not Available In-Office Order Internal Use Only DO Not Attach Compendium DO Not Attach Compendium, Do Not Delete/merge, 03/14/2023 13:15:48 03/14/19 24 03/14/2023 urina lysis , dipst ick pH 5.0 Not Available In-Office Order Internal Use Only DO Not Attach Compendium DO Not Attach Compendium, Do Not Delete/merge, 03/14/2023 13:15:48 03/14/19 24 03/14/2023 urina lysis , dipst ick PRO Negati ve Not Available In-Office Order Internal Use Only DO Not Attach Compendium DO Not Attach Compendium, Do Not Delete/merge, 03/14/2023 13:15:48 03/14/19 24 03/14/2023 urina lysis , dipst ick URO 0.2 E.U. / dl Not Available In-Office Order Internal Use Only DO Not Attach Compendium DO Not Attach Compendium, Do Not Delete/merge, 03/14/2023 13:15:48 03/14/19 24 03/14/2023 urina lysis , dipst ick NIT negati ve Not Available In-Office Order Internal Use Only DO Not Attach Compendium DO Not Attach Compendium, Do Not Delete/merge, 03/14/2023 13:15:48 03/14/19 24 03/14/2023 urina lysis , dipst ick MAURO Negati ve Not Available In-Office Order Internal Use Only DO Not Attach Compendium DO Not Attach Compendium, Do Not Delete/merge, 03/14/2023 13:15:48 03/22/19 24 03/22/2023 pregn haydee test, urine HCG negati ve Not Available In-Office Order Internal Use Only DO Not Attach Compendium DO Not Attach Compendium, Do Not Delete/merge, 03/22/2023 09:11:31 06/07/19 24 06/09/2023 URINE CULTU RE, ROUTI NE urine culture, routine Final report Not Available [facility] ([facility]) [address] [facility], [place], [address], 06/09/2023 06:05:26 06/07/1906/09/2023 URINE CULTU RE, ROUTI NE result 1 No growth Not Available [facility] ([facility]) [address] [facility], [place], [address], 06/09/2023 06:05:26 06/07/19 24 06/07/2023 urina lysis , dipst ick GLU Negati ve Not Available In-Office Order Internal Use Only DO Not Attach Compendium DO Not Attach Compendium, Do Not Delete/merge, 06/07/2023 11:21:54 06/07/1906/07/2023 urina lysis , dipst ick RHAUL Negati ve Not Available In-Office Order Internal Use Only DO Not Attach Compendium DO Not Attach Compendium, Do Not Delete/merge, 06/07/2023 11:21:54 06/07/1906/07/2023 urina lysis , dipst ick KET Negati ve Not Available In-Office Order Internal Use Only DO Not Attach Compendium DO Not Attach Compendium, Do Not Delete/merge, 06/07/2023 11:21:54 06/07/19 24 06/07/2023 urina lysis , dipst ick SG 1.015 Not Available In-Office Order Internal Use Only DO Not Attach Compendium DO Not Attach Compendium, Do Not Delete/merge, 06/07/2023 11:21:54 06/07/19 24 06/07/2023 urina lysis , dipst ick BLO Negati ve Not Available In-Office Order Internal Use Only DO Not Attach Compendium DO Not Attach Compendium, Do Not Delete/merge, 06/07/2023 11:21:54 06/07/1906/07/2023 urina lysis , dipst ick pH 7.0 Not Available In-Office Order Internal Use Only DO Not Attach Compendium DO Not Attach Compendium, Do Not Delete/merge, 06/07/2023 11:21:54 06/07/1906/07/2023 urina lysis , dipst ick PRO Negati ve Not Available In-Office Order Internal Use Only DO Not Attach Compendium DO Not Attach Compendium, Do Not Delete/merge, 06/07/2023 11:21:54 06/07/1906/07/2023 urina lysis , dipst ick URO 0.2 E.U. / dl Not Available In-Office Order Internal Use Only DO Not Attach Compendium DO Not Attach Compendium, Do Not Delete/merge, 06/07/2023 11:21:54 06/07/1906/07/2023 urina lysis , dipst ick NIT negati ve Not Available In-Office Order Internal Use Only DO Not Attach Compendium DO Not Attach Compendium, Do Not Delete/merge, 06/07/2023 11:21:54 06/07/1906/07/2023 urina lysis , dipst ick MAURO Negati ve Not Available In-Office Order Internal Use Only DO Not Attach Compendium DO Not Attach Compendium, Do Not Delete/merge, 06/07/2023 11:21:54 02/20/1902/26/2024 IGP, RFX APTIM A HPV ASCU diagnosis: Shanae RUIZ FOR INTRA EPITH ELIAL LESIO N OR DIRK RICHARD . Not Available [facility] ([facility]) [address] [place], [address], 02/26/2024 16:10:57 02/20/19 25 02/26/2024 IGP, RFX APTIM A HPV ASCU specimen adequacy: Shanae myers for evalu ation . Not Available [facility] ([facility]) [address] [facility], [place], [address], 02/26/2024 16:10:57 02/20/19 25 02/26/2024 IGP, RFX APTIM A HPV ASCU clinician provided ICD10: Shanae villalobos Z01.4 19 Not Available [facility] ([facility]) [address] [facility], [place], [address], 02/26/2024 16:10:57 02/20/19 25 02/26/2024 IGP, RFX APTIM A HPV ASCU performed by: Shanae Raya Prior , Michael villalobos (ASCP ) Not Available [facility] ([facility]) [address] [place], [address], 02/26/2024 16:10:57 02/20/19 25 02/26/2024 IGP, RFX APTIM A HPV ASCU . . Not Available [facility] ([facility]) [address] [place], [address], 02/26/2024 16:10:57 02/20/19 25 02/26/2024 IGP, RFX APTIM A HPV ASCU note: Commen t The Pap smear is a scree ed test desig angelita to aid in the detec tion of delaney ligna nt and malig nant condi tions of the uteri ne cervi x. It is not a diagn ostic proce dure and shoul d not be used as the sole means of detec ting cervi kristina cance r. Both false -posi tive and false -nega tive repor ts do occur . Not Available [facility] ([facility]) [address] [place], [address], 02/26/2024 16:10:57 02/20/19 25 02/26/2024 IGP, RFX APTIM A HPV ASCU test methodology: Commen t This liqui d based ThinP rep(R ) pap test was scree angelita with the use of an image guide d syste m. Not Available [facility] ([facility]) [address] [facility], [place], [address], 02/26/2024 16:10:57 02/20/19 25 02/26/2024 IGP, RFX APTIM A HPV ASCU . Commen t The HPV DNA refle x crite elaina were not met with this speci men resul t there fore, no HPV testi ng was perfo rmed. Not Available [facility] ([facility]) [address] [facility], [place], [address], 02/26/2024 16:10:57 02/26/19 25 02/28/2024 CANCE R ANTIG EN (CA) 125 cancer antigen (Ca) 125 9.7 U/mL 0.0-38 .1 normal Justo Diagn ostic s Elect justo milum inesc ence Immun oassa y (ECLI A) Value s obtai angelita with diffe rent assay metho ds or kits canno t be used inter lombardi eably . Resul ts canno t be inter prete d as absol cara evide nce of the prese nce or absen ce of dirk frausto se. Not Available [facility] ([facility]) [address] [facility], [place], [address], 02/28/2024 08:08:12 Result Notes None recorded. Problems Name Problem SNOMED Code Status Onset Date Resolution Date Notes Provider Name and Address Organization Details Recorded Time Malignant neoplasm of breast 861685876 Active 04/2022 Genesis Briceño MD [address], [place], [address], [place] [facility], 3 10:30:00 Gipson syndrome 204073854 Active 2020 Genesis Briceño MD [address], [place], [address], [place] [facility], 12:19:15 Chronic vaginitis 20903611 Active 2020 Genesis Briceño MD [address], [place], [address], [place] [facility], 12:19:25 Anxiety 91295063 Active 2020 Genesis Briceño MD [address], [place], [address], [place] [facility], 12:20:33 Depressive disorder 16553331 Active 2020 Genesis Briceño MD [address], [place], [address], [place] [facility], 12:20:39 Irritable bowel syndrome 99489923 Active 2020 Genesis Briceño MD [address], [place], [address], [place] [facility], 12:20:44 Dyspareunia 32856979 Active 2020 Genesis Briceño MD [address], [place], [address], [place] [facility], 1 12:20:56 Bicornuate uterus 35339907 Active 2021 Genesis Briceño MD [address], [place], [address], [place] [facility], 2 08:29:37 Chronic pelvic pain of female 227354803 Active 2021 Genesis Briceño MD [address], [place], [address], [place] [facility], 2 09:42:17 Hypothyroidism 18004246 Active 2021 Genesis Briceño MD [address], [place], [address], [place] [facility], 2 11:27:14 History of malignant neoplasm of breast 455817930 Active 2022 Genesis Briceño MD [address], [place], [address], [place] [facility], 3 10:33:57 Pityriasis versicolor 54386052 Active 2023 Genesis Briceño MD [address], [place], [address], [place] [facility], 4 09:29:17 Vaginospasm 71146463 Active 2024 Genesis Briceño MD [address], [place], [address], [place] [facility], 5 11:18:35 Problem Notes None recorded. Procedures Surgical History Date Name Laterality Status Provider Name and Address Organization Details Recorded Time 10/31/19 24 hysterectomy completed Syeda Alston [place] - [facility], 12/25/2023 13:04:54 03/22/19 24 Colposcopy completed Genesis Briceño MD [address], [place], [address], [place] [facility], 03/22/2023 09:30:50 12/16/19 23 Colposcopy completed Genesis Briceño MD [address], [place], [address], [place] - [facility], 12/15/2022 10:31:39 05/26/19 23 Most Recent Mammogram completed Daly Kim in [facility], 11/08/2022 10:06:36 01/12/20 17 delivery completed Syeda Kim in [facility], 10/20/2020 11:29:00 10/16/19 13 Breast augmentation w/implt completed Syeda Kim in [facility], 10/20/2020 11:28:31 10/18/18 89 Remove tonsils and adenoids completed Syeda Kim in [facility], 10/20/2020 11:28:10 lumpectomy of right breast completed Syeda Kim in [facility], 03/14/2023 13:13:17 Imaging Results None recorded. Procedure Notes None recorded. Medical Equipment None Reported. Allergies Allergen ID Allergen Name Allergen Category Reaction Reaction Severity Criticality Documentation Date Start Date Code Code System Note Provider Name and Address Organization Details Recorded Time 97281 codeine medicatio n vomiting Not available Not available 10/20/2020 2670 RxNorm [place] Davalos in [facility], 11:18:22 [id number] Flagyl medicatio n Not available Not available Not available 12/01/2022 6 RxNorm joint , muscl e stiff ness perfo ral neuro charlee , visio n blurr y and doubl e fatig ue., freez ing. PASQUALE Davalos in [facility], 3 08:42:21 Medications Name Sig Start Date Stop Date Status Note LastModified by Organization Details LastModified Time quetiapin e 25 mg tablet TAKE ONE TABLET BY MOUTH DAILY AT BEDTIME 12/24 completed Not Available Not Available Not Available terconazo le 0.4 % vaginal cream INSERT 1 APPLICAT ORFUL VAGINALL Y AT BEDTIME FOR 7 NIGHTS 12/01 completed Not Available Not Available Not Available bupropion HCl SR 150 mg tablet,12 hr sustained -release TAKE 1 TABLET BY MOUTH TWICE A DAY 08/26 completed Not Available Not Available Not Available acetamino phen 325 mg tablet TAKE 2 TABLETS BY MOUTH EVERY 4 HOURS NEEDED FOR PAIN 12/24 completed Not Available Not Available Not Available Apri 0.15 mg-0.03 mg tablet TAKE 1 TABLET BY MOUTH EVERY DAY 08/12 completed Not Available Not Available Not Available fluconazo le 150 mg tablet TAKE 1 TABLET BY MOUTH ONCE. CAN TAKE ANOTHER TABLET 72H LATER IF SYMPTOMS DO NOT CLEAR UP 12/24 completed Not Available Not Available Not Available fluconazo le 200 mg tablet TAKE 1 TABLET BY MOUTH 10/25 completed Not Available Not Available Not Available metronida zole 0.75 % (37.5 mg/5 gram) vaginal gel INSERT 1 APPLICAT ORFUL EVERY DAY BY VAGINAL ROUTE FOR 3 DAYS. 02/09 completed Not Available Not Available Not Available prednison e 20 mg tablet TAKE 1 TABLET EVERY DAY 09/23 completed Not Available Not Available Not Available lidocaine 4 % topical cream APPLY TO NIPPLE/A REOLA 1 HOUR BEFORE ARRIVING FOR INJECTIO N AND SURGERY. COVER WITH SARAN WRAP. 09/23 completed Not Available Not Available Not Available pimecroli mus 1 % topical cream APPLY TO RASH OF THE EYELIDS TWICE DAILY NEEDED. 12/24 completed Not Available Not Available Not Available metronida zole 500 mg tablet TAKE 1 TABLET (500 MG TOTAL) BY MOUTH IN THE MORNING AND BEFORE BEDTIME FOR 5 DAYS 12/01 completed Not Available Not Available Not Available sulfameth oxazole 800 mg-trimet hoprim 160 mg tablet TAKE 1 TABLET BY MOUTH TWICE A DAY FOR 3 DAYS 10/20 completed Not Available Not Available Not Available triamcino lone acetonide 0.1 % topical cream APPLY TO AFFECTED AREA TWICE A DAY 08/26 completed Not Available Not Available Not Available ondansetr on 8 mg disintegr ating tablet DISSOLVE ONE TABLET BY MOUTH EVERY 8 HOURS OR NEEDED FOR VOMITING . 09/23 completed Not Available Not Available Not Available levothyro xine 25 mcg tablet TAKE 1 TABLET BY MOUTH EVERY DAY 04/27 completed Not Available Not Available Not Available lorazepam 0.5 mg tablet TAKE ONE TABLET BY MOUTH EVERY DAY NEEDED FOR ANXIETY active Not Available Not Available No t Available levothyro xine 50 mcg tablet TAKE 1 TABLET BY MOUTH EVERY DAY active Not Available Not Available No t Available cephalexi n 500 mg capsule TAKE 1 CAPSULE BY MOUTH THREE TIMES A DAY FOR 7 DAYS 10/20 completed Not Available Not Available Not Available triamcino lone acetonide 0.1 % topical ointment APPLY TOPICALL Y TWICE A DAY NEEDED FOR 30 DAYS 02/20 completed Not Available Not Available Not Available clotrimaz ole-betam ethasone 1 %-0.05 % topical cream APPLY TO AREA SPARINGL Y TWICE A DAY FOR UP TO TWO WEEKS 08/26 completed Not Available Not Available Not Available oxycodone 5 mg capsule TAKE 1 TABLET BY MOUTH EVERY 6 HOURS NEEDED FOR PAIN 09/23 completed Not Available Not Available Not Available betametha sone dipropion ate 0.05 % topical cream PLEASE SEE ATTACHED FOR DETAILED DIRECTIO NS 12/24 completed Not Available Not Available Not Available omeprazol e 20 mg capsule,d elayed release TAKE 1 CAPSULE BY MOUTH EVERY DAY 02/20 completed Not Available Not Available Not Available clindamyc in 2 % vaginal cream TAKE 1 APPLICAT ORFUL (VAGINAL ) EVERY DAY AT BEDTIME FOR 7 DAYS 12/24 completed Not Available Not Available Not Available hydroxyzi ne HCl 25 mg tablet TAKE 1 TABLET BY MOUTH 3 TIMES DAILY NEEDED FOR ANXIETY 03/14 completed Not Available Not Available Not Available mupirocin 2 % topical ointment APPLY TO BIOPSY SITE ONCE DAILY UNTIL HEALED active Not Available Not Available No t Available lorazepam 1 mg tablet TAKE 1/2 TABLET BY MOUTH EVERY 8 HOURS NEEDED FOR ANXIETY active Not Available Not Available No t Available ibuprofen 600 mg tablet TAKE 1 TABLET BY MOUTH EVERY 6 HOURS 12/24 completed Not Available Not Available Not Available fluticaso ne propionat e 50 mcg/actua tion nasal spray,reena pension SPRAY 1 SPRAY INTO EACH NOSTRIL EVERY DAY active Not Available Not Available No t Available dicyclomi ne 10 mg capsule TAKE 1 OR 2 CAPSULES BY MOUTH EVERY 6 HOURS NEEDED FOR ABDOMINA L CRAMPING AND DISCOMFO RT 12/24 completed Not Available Not Available Not Available loratadin e 10 mg tablet TAKE 1 TABLET BY MOUTH EVERY DAY 10/20 completed Not Available Not Available Not Available naproxen 500 mg tablet TAKE 1 TABLET BY MOUTH TWICE A DAY WITH FOOD 08/26 completed Not Available Not Available Not Available amoxicill in 875 mg-potass ium clavulana te 125 mg tablet TAKE 1 TABLET BY MOUTH EVERY 12 HOURS FOR 7 DAYS 12/24 completed Not Available Not Available Not Available amoxicill in 500 mg-potass ium clavulana te 125 mg tablet TAKE 1 TABLET BY MOUTH TWICE A DAY FOR 10 DAYS WITH FOOD 12/24 completed Not Available Not Available Not Available simethico ne 80 mg chewable tablet CHEW 1 TABLET 4 TIMES A DAY NEEDED FOR GAS 12/24 completed Not Available Not Available Not Available oxycodone 5 mg tablet TAKE 1 TABLET BY MOUTH EVERY 6 HOURS NEEDED FOR PAIN 12/24 completed Not Available Not Available Not Available escitalop kadi 10 mg tablet TAKE ONE TABLET BY MOUTH EVERY MORNING active Not Available Not Available No t Available cyclobenz aprine 5 mg tablet TAKE 1 TABLET ORALLY EVERY 8 HOURS NEEDED FOR PAIN (SCALE SCORE 7-10) FOR 5 DAYS 08/26 completed Not Available Not Available Not Available azelaic acid 15 % topical gel APPLY A PEA SIZED AMOUNT TO AREAS OF ROSACEA DAILY ON FACE active Not Available Not Available No t Available bupropion HCl XL 300 mg 24 hr tablet, extended release TAKE 1 TABLET BY MOUTH EVERY DAY IN THE MORNING 12/24 completed Not Available Not Available Not Available bupropion HCl XL 150 mg 24 hr tablet, extended release TAKE 1 TABLET BY MOUTH EVERY DAY IN THE MORNING 01/27 completed Not Available Not Available Not Available escitalop kadi 5 mg tablet TAKE ONE TABLET BY MOUTH EVERY MORNING 02/20 completed Not Available Not Available Not Available nitrofura ntoin monohydra te/macroc rystals 100 mg capsule TAKE 1 CAPSULE (100 MG TOTAL) BY MOUTH EVERY 12 (TWELVE) HOURS FOR 5 DAYS. 12/24 completed Not Available Not Available Not Available vitamin B complex active Not Available Not Available Not Available omeprazol e 02/20 completed Not Available Not Available Not Available Fish Oil active Not Available Not Avai lable Not Available lorazepam 08/26 completed Not Available Not Available Not Available naproxen 08/26 completed Not Available Not Available Not Available Vitamin D3 active Not Available Not Available Not Available DOK 100 mg tablet TAKE 1 TABLET BY MOUTH TWICE A DAY NEEDED FOR CONSTIPA TION 12/24 completed Not Available Not Available Not Available Gavilax 17 gram/dose oral powder TAKE 17 GM BY MOUTH DAILY active Not Available Not Available No t Available Probiotic active with prebioti c Not Available Not Available Not Available 28 mg iron-800 mcg tablet TAKE 1 TABLET BY MOUTH EVERY DAY 09/23 completed Not Available Not Available Not Available Vitals Date Recorded Body height Body mass index (BMI) Body weight Heart rate Systolic And Diastolic Provider Name and Address Organization Details Last Updated DateTime 02/21/2024 157.48 cm 21 kg/m2 07520.12 g 89 /min 105/71 mm[Hg] Syeda Kim in [facility], 02/21/2024 10:39:25 Date Recorded Body height Body mass index (BMI) Body weight Heart rate Body temperature Systolic And Diastolic Provider Name and Address Organization Details Last Updated DateTime 4 157.48 cm 19.1 kg/m2 61410.7 6 g 86 /min 97.8 [degF] 116/77 mm[Hg] Syeda Kim in [facility], 4 13:09:52 Date Recorded Body height Body mass index (BMI) Body weight Heart rate Body temperature Systolic And Diastolic Provider Name and Address Organization Details Last Updated DateTime 4 157.48 cm 19.1 kg/m2 12542.7 6 g 77 /min 97.7 [degF] 108/67 mm[Hg] Syeda Kim in [facility], 4 08:57:20 Date Recorded Body height Body mass index (BMI) Body weight Body temperature Heart rate Systolic And Diastolic Provider Name and Address Organization Details Last Updated DateTime 157.48 cm 19.3 kg/m2 60349.3 5 g 97.7 [degF] 82 /min 120/79 mm[Hg] Syeda Kim in [facility], 11:10:49 Date Recorded Body height Heart rate Body mass index (BMI) Body weight Systolic And Diastolic Provider Name and Address Organization Details Last Updated DateTime 12/25/2023 157.48 cm 78 /min 20.1 kg/m2 87359.44 g 123/73 mm[Hg] Syeda Kim in [facility], 12/25/2023 12:58:27 Social History Question Answer Notes LastModified by Organizat ion Details LastModified Time Tobacco Smoking Status Never Smoker PASQUALE Davalos in [facility], 10/20/2020 11:26:48 How Many Years Have You Consumed Alcohol? 15 Information not available 10/20/2020 What Is Your Level Of Caffeine Consumption? Moderate Coffee Or Tea In The Morning Information not available 03/22/2023 In The 14 Days Before Symptom Onset, Have You Had Close Contact With A Laboratory-confir med COVID-19 While That Case Was Ill? No Information not available 10/20/2020 In The 14 Days Before Symptom Onset, Have You Had Close Contact With A Person Who Is Under Investigation For COVID-19 While That Person Was Ill? No Information not available 10/20/2020 Have You Been To An Area Known To Be High Risk For COVID-19? No Information not available 10/20/2020 What Is The Highest Grade Or Level Of School You Have Completed Or The Highest Degree You Have Received? [id number] Information not available 10/20/2020 Who Is Your Employer? [email or web address] Information not available 10/20/2021 Are There Any Guns Present In Your Home? No Information not available 10/20/2020 To Which Gender Do You Self-identify? Female Information not available 10/20/2020 What Was The Date Of Your Most Recent Tobacco Screening? 02/21/2024 Information not available 02/21/2024 What Is Your Relationship Status? Information not available 10/20/2020 Are You Sexually Active? No Information not available 10/20/2020 How Many Days In The Past Year Have You Consumed 4 Or More Drinks? 0 Information no t available 10/20/2020 Sex: Female Functional Status Question Answer Note LastModified by Organizat ion Details LastModified Time Do you use any illicit or recreational drugs? No Information not available 10/20/2020 Do you or have you ever used any other forms of tobacco or nicotine? No Information not available 10/20/2020 What is your level of alcohol consumption? Occasional Information not available 10/20/2020 Are you currently employed? Yes Information not available 10/20/2020 What is your occupation? [employer] Information not available 03/14/2023 What is your exercise level? Occasional Information not available 10/20/2020 Mental Status Question Answer Note LastModified by Organization D etails LastModified Time Do you feel stressed (tense, restless, nervous, or anxious, or unable to sleep at night)? [id number] Information not available 10/20/2020 Family History Relationship Description Onset Age of this Age Resolved Age Notes LastModified by Organization Details LastModified Time Mother Malignant neoplasm of uterus 60 stage 3...ly nch positi ve. [email or web address] Not available 10/20/2020 11:24:10 Mother Diabetes mellitus [email or web address] Not available 2021 11:09:16 Maternal Uncle Problem neck.. .gipson positi ve. [email or web address] Not available 10/20/2020 11:24:21 Father Diabetes mellitus [email or web address] Not available 2020 11:24:52 Notes:patient is gipson posit kristal....mom endometrial and lung cancer..monitor for module of thyroid. Medical History Condition Response Anesthesia complications N High Blood Pressure N Candidate for MyRisk panel N Autoimmune Condition Y Thyroid Problems N Kidney or Bladder Problems N GI Problems Y Lung Disease N Depression Y Defects or Inherited Disease N History of Ovarian Cancer N Anemia N History of Breast Cancer Y NETTA exposure N BRCA testing in past Y Osteopenia N Psychiatric Illness N Anxiety Disorder Y Diabetes N Arthritis N Headaches or Migraines N Infertility N Asthma N History of Cancer N Endometriosis N Hepatitis N Heart Disease N Hypertension N Osteoporosis N Gynecological History Statement/Question Response Flow Moderate Date of LMP 10/24/2023 Frequency of Cycle (Q days) 28 Menses Monthly Y Duration of Flow (days) 5 Age at Menarche 13 Current Control Method None Most Recent Mammogram 05/25/2022 Age at First Child 35 Obstetrics History GPAL:G 2 P 1 0 1 1 Type Value Full Term 1 Spontaneous 1 Living 1 Total 2 Immunizations Vaccine Type Date Status Note Provider Nam e and Address Organization Details Recorded Time COVID-19, mRNA, LNP-S, PF, 100 mcg/0.5mL dose or 50 mcg/0.25mL dose 1 completed PASQUALE Davalos in [facility], 10/20/2020 11:21:51 Influenza, split virus, quadrivalent, preservative 0 completed Not Available [facility] 03/22/2023 08:53:59 COVID-19, mRNA, LNP-S, PF, 100 mcg/0.5mL dose or 50 mcg/0.25mL dose 1 completed PASQUALE Muhammad in [facility], 12/01/2020 09:47:52 Influenza, split virus, quadrivalent, preservative 1 completed PASQUALE Davalos in [facility], 02/25/2021 08:26:28 DTP 8 completed PASQUALE Muhammad in [facility], 12/23/2021 10:46:27 OPV, trivalent 3 completed PASQUALE Muhammad in [facility], 12/23/2021 10:46:27 MMR 4 completed PASQUALE Muhammad in [facility], 12/23/2021 10:46:27 Hep B, adolescent or pediatric 6 completed Daly Hannah null, [facility], 12/23/2021 10:46:27 OPV, trivalent 3 completed Daly Hannah null, [place] - [facility], 12/23/2021 10:46:27 Hep B, adolescent or pediatric 6 completed Daly Hannah null, [place] - [facility], 12/23/2021 10:46:27 HPV, quadrivalent 8 completed Daly Hannah null, [place] - [facility], 12/23/2021 10:46:27 Influenza, split virus, quadrivalent, PF 0 completed Daly Hannah null, [place] - [facility], 12/23/2021 10:46:27 COVID-19, mRNA, LNP-S, PF, 100 mcg/0.5mL dose or 50 mcg/0.25mL dose 1 completed Daly Hannah null, [place] - [facility], 12/23/2021 10:46:27 Influenza, split virus, quadrivalent, PF 1 completed Daly Hannah null, [place] - [facility], 12/23/2021 10:46:27 Influenza, split virus, trivalent, preservative 6 completed Daly Hannah null, [place] - [facility], 12/23/2021 10:46:27 Influenza, split virus, quadrivalent, PF 9 completed Daly Young null, [place] - [facility], 12/23/2021 10:46:27 OPV, trivalent 3 completed Daly Hannah null, [place] - [facility], 12/23/2021 10:46:27 MMR 6 completed Daly Hannah null, [place] - [facility], 12/23/2021 10:46:27 Hep B, adolescent or pediatric 6 completed Daly Young null, [place] - [facility], 12/23/2021 10:46:27 HPV, quadrivalent 8 completed Daly Hannah null, [place] - [facility], 12/23/2021 10:46:27 Td (adult), 2 Lf tetanus toxoid, preservative free, adsorbed 7 completed Daly Hannah null, [place] - [facility], 12/23/2021 10:46:27 OPV, trivalent 8 completed Daly Hannah null, [place] - [facility], 12/23/2021 10:46:27 COVID-19, mRNA, LNP-S, PF, 30 mcg/0.3 mL dose 1 completed Daly Hannah null, [place] - [facility], 12/23/2021 10:46:27 Influenza, split virus, quadrivalent, PF 8 completed Daly Hannah null, [place] - [facility], 12/23/2021 10:46:27 OPV, trivalent 4 completed Daly Hannah null, [place] - [facility], 12/23/2021 10:46:27 DTP 3 completed Daly Hannah null, [place] - [facility], 12/23/2021 10:46:27 Hib (HbOC) 8 completed Daly Hannah null, [place] - [facility], 12/23/2021 10:46:27 Influenza, split virus, trivalent, preservative 5 completed Daly Hannah null, [place] - [facility], 12/23/2021 10:46:27 Tdap 7 completed Daly Hannah null, [place] - [facility], 12/23/2021 10:46:27 DTP 3 completed Daly Hannah null, [place] - [facility], 12/23/2021 10:46:27 DTP 4 completed Daly isaac MA - [facility], 12/23/2021 10:46:27 DTP 3 completed Daly Hannah isaac [facility] - [facility], 12/23/2021 10:46:27 Tdap 8 completed Daly Carrascoaquiles isaac [place] - [facility], 12/23/2021 10:46:27 Influenza, split virus, quadrivalent, PF 2 completed Syeda Alston marlin [place] - [facility], 10/25/2022 14:28:16 Past Encounters Encounter ID Performer Location Encounter Start Date Encounter Closed Date Diagnosis/Indication Diagnosis SNOMED-CT Code Diagnosis ICD10 Code Diagnosis IMO Codes Diagnosis Note [id number] MD GENESIS Sanchez MD [address] [place] [address], [address] [place] [address] 10/20/2020 11:08:59 10/20/2020 15:29:05 Specialized medical examination 60113284 Z01.419 Venereal d isease screening 152468285 Z11.3 Acute lowe r urinary tract infection 077676420 R30.0 Gipson syndrome 941070581 Z15.09 Chronic vaginitis 736634 08 N76.1 Candidal vulvovaginitis 45683203 B37.3 Dyspareunia 07879872 N94 .10 [id number] MD GENESIS Sanchez MD [address] [facility] [address] [place] [address] 11/09/2020 13:01:07 11/09/2020 14:36:43 Candidal vulvovaginitis 40869762 B37.3 Gipson syndrome 890975622 Z15.09 [id number] MD GENESIS Sanchez MD [address] [facility] [address] [place] [address] 12/01/2020 09:22:08 12/01/2020 10:54:29 Vulvitis 60379936 N76.2 [id number] MD GENESIS Sanchez MD [address] [facility] [place] [place] [address] 02/09/2021 09:50:41 02/09/2021 14:09:57 Chronic vaginitis 22160239 N76.1 Anxiety 96006114 F41.9 Dyspareunia 85009014 N94 .10 Irritable bowel syndrome 19126951 K58.9 Gipson syndrome 766255429 Z15.09 [id number] MD GENESIS Sanchez MD [address] [place] [place] [address] [place] [address] 02/25/2021 08:14:37 02/25/2021 10:29:32 Vulvitis 33003812 N76.2 Pain in pelvis 69040519 R10.2 Dyspareunia 35221518 N94 .10 Chronic pe lvic pain of female 895074371 R10.2 Gipson syndrome 202326043 Z15.09 [id number] MD GENESIS Sanchez MD [address] [place] [address] [place] [address] 08/12/2021 11:22:54 08/12/2021 15:36:00 Mass of left ovary 4959665005 5348490 R19.09 [id number] MD GENESIS Sanchez MD [address] [place], [place] [address] [address] 08/26/2021 11:06:12 08/26/2021 14:19:50 Hypothyroidism 81029603 E03.9 [id number] MD GENESIS Sanchez MD [address] [place] [address] [place] [address] 10/20/2021 10:07:38 12/23/2021 15:57:40 Specialized medical examination 65094991 Z01.419 Venereal d isease screening 206914690 Z11.3 Hypothyroidism 80170491 E03.9 Gipson syndrome 437973373 Z15.09 Mass of right breast 971 2821093 9525699 N63.10 Dyspareunia 47173058 N94 .10 Irritable bowel syndrome 39698050 K58.9 Depressive disorder 3548 9007 F32.A Chronic pe lvic pain of female 966243421 R10.2 Bicornuate uterus 626658 03 Q51.3 [id number] MD GENESIS Sanchez MD [address] [place] [address],[facility] [place] [address] 12/23/2021 10:45:22 12/23/2021 14:20:25 Hypothyroidism 29324055 E03.9 [id number] MD GENESIS Sanchez MD [address] [place] [address],[facility] [place] [address] 04/27/2022 08:46:51 04/28/2022 10:16:16 Dyspareunia 20145798 N94.12 Gipson syndrome 199201649 Z15.09 Mass of right breast 263 1159009 0258098 N63.11 Candidal vulvovaginitis 92670781 B37.31 [id number] MD GENESIS Sanchez MD [address] [place], [place] [address] [address] 09/23/2022 09:44:10 09/23/2022 11:57:46 Candidal vulvovaginitis 73660617 B37.31 Cyst of left ovary 37978 80445 1670297 N83.202 Pain in pelvis 12813238 R10.2 [id number] MD GENESIS Sanchez MD [address] [place] [address] [place] [address] 10/25/2022 14:23:06 10/25/2022 15:18:57 Acute lower urinary tract infection 069965485 R30.0 Pain in pelvis 22052134 R10.2 Dyspareunia 22031376 N94 .12 Candidal vulvovaginitis 00643314 B37.31 [id number] MD GENESIS Sanchez MD [address] [place] [address] [place] [address] 12/01/2022 08:33:10 12/01/2022 10:57:05 Specialized medical examination 93483876 Z01.419 Screening for malignant neoplasm of rectum 613984374 Z12.12 Screening mammography 24 214919 Z12.31 Vaginal discharge 080695 006 N89.8 [id number] MD GENESIS Sanchez MD [address] [place], [place] [address] [place] [place] [address] 12/15/2022 09:48:08 12/15/2022 11:19:05 Cytologic finding 730044011 R87.612 Anxiety 11493455 F41.9 History of malignant neoplasm of breast 517225415 Z85.3 Gipson syndrome 887904578 Z15.09 [id number] MD GENESIS Sanchez MD [address] [place], [place] [address] [address] 01/27/2023 08:59:58 01/27/2023 12:07:24 Acute lower urinary tract infection 242350886 R30.0 Pruritus of vulva 855696 00 L29.2 Urgent netta toi to urinate 63364742 R39.15 [id number] MD GENESIS Sanchez MD [address] [place], [place] [address] [place] [address] 03/14/2023 13:02:09 03/15/2023 10:34:05 Acute lower urinary tract infection 431025997 R30.0 Vaginal di scharge problem 825780911 N89.9 [id number] MD GENESIS Sanchez MD [address] [place], [place] [address] [address] 03/22/2023 08:52:24 03/22/2023 10:15:05 Cytologic finding 553037834 R87.612 History of malignant neoplasm of breast 230589673 Z85.3 Gipson syndrome 275005140 Z15.09 Pityriasis versicolor 56 971182 B36.0 [id number] MD GENESIS Sanchez MD [address] [place], [place] [address] [address] 06/07/2023 11:06:43 06/07/2023 12:10:47 Acute lower urinary tract infection 899248001 R30.0 Fatigue 90929029 R53.83 [id number] MD GENESIS Sanchez MD [address] [place], [place] [address] [address] 12/25/2023 12:52:40 12/25/2023 14:52:44 [id number] MD GENESIS Sanchez MD [address] [facility] [address] [place] [address] 02/21/2024 10:31:06 02/21/2024 12:17:07 Specialized medical examination 03717849 Z01.419 Screening for malignant neoplasm of rectum 825265443 Z12.12 Screening mammography 24 629545 Z12.31 Vaginospasm 08629970 N94 .2 Health Concerns Section Related Observation LastModified by Organization Detai ls LastModified Time None Recorded Concern Status LastModified by Organization Details LastModified Time None Recorded Advance Directives Directive None Recorded Payers Insurance Date Sequence Insurance Name Policy Number Policy Carrasco Covered Member ID Carrasco Member ID Guarantor Name 02/19/2024 1 [facility] [id number] Pablo Elizabeth [id number] 25 Daisy Elizabeth Notes Date Note Type Note Provider Name and Address Organization Details Recorded Time 03/14/2023 text/html She is here for a complaint of vaginal discharge, pruritus, and dysuria. she notes the vaginal discharge is stringy. She has been using boric acid suppositories at least 3 times a week for at least a month. She is also taking an oral vaginal probiotic nad also using a vaginal probiotic vaginally that she got from her edger automatic. She is seeing a urologist for her chronic urinary issues. They may be doing a cystoscopy soon. She is seeing the gynecological assistant oncologist and they plan to do the hysterectomy, this year sometime. She has numbness in her tongue, tinnitus, gi upset, and some other issues for which she is seeing her PCP, her GI doctor, and her neurologist. __ note from 11/2022: She is here for annual exam, has chronic pelvic pain, dyspareunia, and pelvic floor issues, had been going to pelvic floor therapy and it was helping, wishes to restart. 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 she is due again next year.She was advised to have a hysterectomy with gynecological assistant oncology, went to meet with them but declined at that time but has changed her mind and has an upcoming appointment with gynecological assistant oncology for this.She has salvador having issues with recurrent yeast and bv. She saw functional medicine who has her eating yogurt, using vaginal probiotics, and boric acid. She is not having symptoms at this time.She was given flagyl oral pills on 10/29/22 at a walk in, she notes she developed shooting pains and neuropathy from that, she saw a neurologist yesterday and he advised her that it could be from the flagyl and likely would fade over time.She is tearful, and understandably frustrated with all these health issues.Last pelvic sonogram was 10/26/22 and normal except noting her arcuate uterus and also two small ovarian cysts. Genesis Briceño MD [address], [place], [phone], [employer] [facility] [employer] [facility], 03/14/2023 14:27:48 03/22/2023 text/html She is here for repeat colpo after LSIL. She was advised we could just repeat pap at next annual but she has an underlying anxiety disorder and really wanted to recheck sooner, so it has been 3 months since last colpo. Genesis Briceño MD [address], [place], [phone], [facility], 03/22/2023 09:31:54 06/07/2023 text/html She is here for a complaint of fatigue and lymphadenopathy in her groin, pain in her cervix, dysuria, and a sense of pressure in her pelvis. Her last pelvic sonogram was 01/05 and negative. She has Gipson Syndrome, is seeing a gynecological assistant oncologist in a few weeks for repeat pelvic sonogram and also discussion of hysterectomy. Genesis Briceño MD [address], [place], [phone], [facility], 06/07/2023 11:40:22 12/25/2023 text/html She is here for annual, she had her hysterectomy done in 11/06. ___ Note from 2022: She is here for annual exam, has chronic pelvic pain, dyspareunia, and pelvic floor issues, had been going to pelvic floor therapy and it was helping, wishes to restart. 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 she is due again next year.She was advised to have a hysterectomy with gynecological assistant oncology, went to meet with them but declined at that time but has changed her mind and has an upcoming appointment with gynecological assistant oncology for this.She has salvador having issues with recurrent yeast and bv. She saw functional medicine who has her eating yogurt, using vaginal probiotics, and boric acid. She is not having symptoms at this time.She was given flagyl oral pills on 10/29/22 at a walk in, she notes she developed shooting pains and neuropathy from that, she saw a neurologist yesterday and he advised her that it could be from the flagyl and likely would fade over time.She is tearful, and understandably frustrated with all these health issues.Last pelvic sonogram was 10/26/22 and normal except noting her arcuate uterus and also two small ovarian cysts. Genesis Briceño MD [address] [place] [address],[address], [place], [phone], [place] [facility], 12/25/2023 13:26:05 02/21/2024 text/html She is here for annual, had her hysterectomy in 11/06, is not having the pelvic pain anymore but still wonders if she would have the dyspareunia, so she has not been sexually active with her yet. She would like to go back to pelvic floor therapy as she feels this will be useful to her to be able to relax and become sexually active again. ___ Note from 2022: She is here for annual exam, has chronic pelvic pain, dyspareunia, and pelvic floor issues, had been going to pelvic floor therapy and it was helping, wishes to restart. 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 she is due again next year.She was advised to have a hysterectomy with gynecological assistant oncology, went to meet with them but declined at that time but has changed her mind and has an upcoming appointment with gynecological assistant oncology for this.She has salvador having issues with recurrent yeast and bv. She saw functional medicine who has her eating yogurt, using vaginal probiotics, and boric acid. She is not having symptoms at this time.She was given flagyl oral pills on 10/29/22 at a walk in, she notes she developed shooting pains and neuropathy from that, she saw a neurologist yesterday and he advised her that it could be from the flagyl and likely would fade over time.She is tearful, and understandably frustrated with all these health issues.Last pelvic sonogram was 10/26/22 and normal except noting her arcuate uterus and also two small ovarian cysts. Genesis Briceño MD [address] [facility],[address], [place], [phone], [place] [facility], 02/21/2024 11:24:10 OBGyn Episode No OBEpisode recorded.
--- OUTSIDE RECORDS SUMMARY | 2025-02-01 08:29 | XMS_ITS | Encounter Summary ---
Author Organization [facility] Address [address] [place] [address] Care Team Providers Care Software Quality Manager Name Role Phone Dionna Barger MD Primary Care Provider [phone] Reason for Visit * Reason Onset Date Comments Mass 01/30/2025 Encounter Details Date Type Department Care Team ([facility] st Contact Info) Description 01/30/2025 Telephone Adult [facility] [address] [place] [phone] Dionna Barger MD [address] [place] [address] Social History Tobacco Use Types Packs/Day Years [...] on file documented as of this encounter Progress Notes * Jorge Torres RN - 01/30/2025 1:38 PM EST Appointment scheduled to evaluate a painful noticeable lump on neck , pt has had cancer and is worried about this * Alva Stover - 01/30/2025 1:27 PM EST Patient call requires triage: Symptoms patient is presenting: patient has a noticeable lump on the left side of her neck. Approx.Quarter size. It hurts to touch and is bothering her ear. She is concerned because she has a history of cancer. How long has patient had these symptoms?: 2 weeks For ALL patients calling to schedule any appointment (routine, sick visit, follow up, consult, etc.) in the outpatient setting please ask the following questions: Do you have fever of higher than 101, sore throat with difficulty swallowing or severe shortness ofbreath? no If YES to any of these above symptoms, send a message to triage and do not book. Red dot. If no, an audio or video visit should be booked. Have you had close contact with someone with Coronavirus in the last 14 days? no Have you traveled abroad? no Have you traveled recently to another state outside of [place], [place], [place], [place], [place], [place], [place]? no o If yes, did you quarantine for 14 days or have a negative covid test? no If yes to any of the above, patient is not to be scheduled in office until after 14 day quarantine or negative covid test. If pain or injury related was it due to an accident at work or from a motor vehicle accident? If yes, date of accident/Injury: No If yes, gather 3rd alliance party insurance information Third Democrat Information: not applicable PCP: Dionna Barger MD Payor: [facility] / Plan: [facility] / Product Type: *No Product type* / documented in this encounter Plan of Treatment Not on file documented as of this encounter Visit Diagnoses Not on filedocumented in this encounter Care Teams Software Quality Manager Relationship Specialty Start Date End Date Dionna Barger MD [address] [place] [id number] PCP - General 12/23/02 documented as of this encounter
--- OUTSIDE RECORDS SUMMARY | 2025-02-01 08:29 | XMS_ITS | Clinical Summary ---
Author Organization [facility] Address [address] [place] [address] Phone Care Team Providers Care National Guard Member Name Role Phone Dionna Barger MD Primary Care Provider [phone] Self-Referred, Patient Unavailable Unavailab le Allergies Active [...] W/OUT INTERPRETATION Final Result Performing Organization Address City/State/[facility] Co de Phone Number [facility] from Last 3 Months or Most Recently Relevant to Health Maintenance Insurance OUT [facility] PPO BLUE CROSS OUT OF STATE PPO BLUE [employer]OSS OUT OF STATE PPO BLUE [place]OSS OUT OF STATE PPO OUT [place] [address] [place] [address] OUT OF STATE PPO Member Subscriber Plan / Payer ( fective 2021-Present) Name:Daisy Zurita Relation to Subscriber:Spouse Name:KELVIN ZURITA Date of :1974 (Home) Address: [address] [place] [address] Payer ID:[id number] (NAIC) Type:PPO Address: [place] [id number] BLUE CROSS OUT OF STATE PPO BLUE CROSS OUT OF STATE PPO BLUE CROSS OUT OF STATE PPO Care Teams National Guard Member Relationship Specialty Start Date End Date Dionna Barger MD [address] [place] [id number] PCP - General Internal Medicine 06/11/18 Self-Referred, Patient 06/06/22 Additional Source Comments The information contained in this document represents components of the legal health record. It is not the complete legal health record.[facility]
--- OUTSIDE RECORDS SUMMARY | 2025-02-01 08:29 | XMS_ITS | Patient Health Record ---
Author Organization [facility] Address [address] [place] [phone] Care Team Providers Care Tissue Technician Name Role Phone Jean Barger MD Primary Care Provider Unavail able Rogelio Elaine Unavailable [phone] Allergies Allergen (clinical drug ingredient) Drug/Non Drug Allergy documented on EMR Reaction Allergy Type Onset Date Status codeine Codeine Sulfate vomitting Drug Allergy A ctive Reason For Referral No Information Medications Medication SIG (Take, Route, Frequency, Duration) Notes Start Date End Date Status NAC 600 MG Capsule 1 capsule Orally Onc e a day; Duration: 30 day(s) Active Levothyroxine Sodium 50 MCG Tablet 1 tablet in the morning on an empty stomach Orally Once a day; Duration: 30 day(s) Active buPROPion HCl ER (XL) 300 MG Tablet Extended Release 24 Hour 1 tablet in the morning Orally Once a day; Duration: 30 day(s) Active Dicyclomine HCl 10 MG Capsule 1 or 2 Orally Every 6 hours as needed for abdominal cramping and discomfort; Duration: 30 day(s) 03/28/2023 Active Fish Oil Active Probiotic Active Omeprazole 20 MG Capsule Delayed Release TAKE 1 CAPSULE BY MOUTH EVERY DAY Oral; Duration: 30 Active Vitamin D Active Immunizations Vaccine Route Administration Date Status Comme nts Influenza Unknown 11/27/2019 Administered Social History Social History Drugs/Alcohol: Social Info Question Answer Notes Alcohol Screen Did you have a drink containing alcohol in the past year? Yes How often did you have a drink containing alcohol in the past year? Never (0 point) How many drinks did you have on a typical day when you were drinking in the past year? 1 or 2 drinks (0 point) How often did you have 6 or more drinks on one occasion in the past year? Never (0 point) Points 0 Interpretation Negative Additional Details Category Social Info Options Details Miscellaneous: Marital status: Occupation: automotive tire technician---CT d ept at [employer] Children: 1 6-year old chi ld as of the 03/2023 OV Section Notes: Nonsmoker; 1 glass of wine Q D Nonsmoker; 1 glass of wine Q D Nonsmoker; 1 glass of wine Q D Nonsmoker; 1 glass of wine Q D Nonsmoker; 1 glass of wine Q D Nonsmoker; no significant al cohol use Problems Problem Type SNOMED Code ICD Code Onset Dates Problem Status W/U Status Risk Notes Problem Screening for malignant neoplasm of colon (249358590) Encounter for screening for malignant neoplasm of colon (Z12.11) Active confirmed Problem Weight loss (515162563) Weight loss (R63.4) Active confirmed Problem Screening for malignant neoplasm of rectum (786500656) Encounter for screening for malignant neoplasm of rectum (Z12.12) Active confirmed Problem Epigastric pain (69627155) Abdominal pain, epigastric (R10.13) Active confirmed Problem Liver mass (271286105) Liver mass (R16.0) Active confirmed Problem 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 Problem Focal nodular hyperplasia of liver (006522775) Focal nodular hyperplasia of liver (K76.89) Active confirmed Problem Diarrhea (46733415) Diarrhea, unspecified type (R19.7) Active confirmed Problem Abdominal pain (70575360) Abdominal cramping (R10.9) Active confirmed Plan Of Treatment Pending Test Test Name Order Date BUN 07/28/2020 CREATININE 07/28/2020 CRP 07/28/2020 CEA 07/28/2020 CBC w DIFF 07/28/2020 SED RATE (ESR) 07/28/2020 ALPHA-FETOPROTEIN,TUMOR MARKER CELIAC PANEL #10 03/28/2023 CULTURE, STOOL 07/28/2020 MRI ABD W&WO CONTRAST 10/31/2014 MRI ABD W&WO CONTRAST 07/28/2020 STOOL WBC 07/28/2020 C DIFFICILE RFLX PCR 07/28/2020 Giardia Ag Stool EIA 07/28/2020 Ova and Parasites 07/28/2020 Future Test Test Name Order Date UPPER GI ENDOSCOPY 05/21/2015 COLONOSCOPY 05/21/2015 UPPER GI ENDOSCOPY 07/28/2020 COLONOSCOPY 07/28/2020 UPPER GI ENDOSCOPY 03/28/2023 Insurance Providers Payer Name Payer Address Payer Phone Subscriber Number Group Number Insured Name Patient Relationship to Insured Coverage Start Date Coverage End Date [facility] [id number] [place], [place] [id number] ELIZABETH ZURITA Self - patient is the insured Medical (General) History Medical History History ICD Code Depression/anxiety Denies MA,DM,CVA,Lung disease,renal dise ase EGD/Flex sig in 03/2010--heal [...] neck cancer) as well--she was evaluated at [facility]--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
--- OUTSIDE RECORDS SUMMARY | 2025-02-01 08:29 | XMS_ITS | Clinical Summary ---
Author Organization [address] [place] [address] [place] [phone] Phone Care Team Providers Care Accounts Receivable Coordinator Name Role Phone Dionna Barger MD Primary Care Provider [phone] Allergies Active Allergy Reactions Criticality Noted Date Comments Codeine Nausea And Vomiting 06/02/2005 Medications fluticasone propionate (FLONASE) 50 mcg/actuation nasal spray 2 Sprays by Nasal route daily. 02/25/19 16 Active hydrOXYzine HCL (ATARAX) 25 mg tablet Take 1 Tablet by mouth at bedtime as needed (sleep). Active Lactobacillus acidophilus (PROBIOTIC ACIDOPHILUS ORAL) Take by mouth. Activ e magnesium hydroxide (MAGNESIA ORAL) Take by mouth. Active DIETARY SUPPLEMENT ORAL Nutritional Supplements (VITAMIN D BOOSTER OR)- Take by mouth. Active OMEGA-3 FATTY ACIDS-FISH OIL ORAL [place]-3 Fatty Acids (FISH OIL BURP-LESS OR)- Take by mouth. Active escitalopram (LEXAPRO) 20 mg tablet Take 1 tablet (20 mg total) by mouth 1 (one) time each day. Active naltrexone 3 mg capsule Take 1 capsule (3 mg total) by mouth. Active levothyroxine (SYNTHROID, LEVOTHROID) 50 mcg tablet TAKE 1 TABLET BY MOUTH EVERY DAY 90 tablet 1 08/22/19 25 Active berberin/grape/ grapefruit/bear (BERBEMYCIN ORAL) Take by mouth. 025 Discontinued omeprazole (PriLOSEC) [address] capsule Take 1 capsule (20 mg total) by mouth 1 (one) time each day. 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 Hypothyroidism [...] q 1-2 yrs started by age 32 ass--Annual transvaginal ultrasound, endometrial bx, CA125, Dermatology--starting age [...] Encounters Date Type Department Care Team Description 01/31/2025 1:45 PM EST - 01/31/2025 11:59 PM EST Hospital Encounter Xray - [address] [phone] Lymph node enlargement; Sinus pressure Discharge Disposition: Home or Self Care 01/31/2025 1:40 PM EST Lab Draw Station - [address] [phone] Neck pain; Lymph node enlargement 01/31/2025 1:00 PM EST Office Visit Adult [address] [phone] Joshua Crowe PA Neck pain (Primary Dx); Lymph node enlargement; Sinus pressure 01/31/2025 Results Follow-Up Adult [address] [phone] Joshua Crowe PA 01/30/2025 Telephone Adult [address] [phone] Dionna Barger MD from Last 3 Months Immunizations Immunization Administration Dates Next Due DTP 08/14/1987, 4,1982,1982,1982 [id number] (Pentacel) 2mo to less than 5yo 08/14/1987 HPV, Quadrivalent 05/22/2007,03/20/2007 Hep B, Unspecified 05/31/2004,01/14/2003 Hepatitis B Pediatric (Enger ix B; Recombivax HB) to less than 20 yo 12/13/1995,07/06/1995,06/08/1995 Hib (HbOC) 08/14/1987 Influenza Quadravalent, MDCK , 0.5ml, preservative free (Flucelvax) 6mo and older 03/28/2023,10/26/2016 Influenza Quadrivalent, 0.5m l, preservative free (Fluarix; FluLaval; Fluzone) ages 6mo and older (Afluria) 3yo and older 12/08/2021,12/03/2020,12/05/2019,2018,11/24/2017 Influenza Quadrivalent, with preservative (Fluzone; Afluria) 6mo and older 11/22/2020,12/03/2019 Influenza trivalent, 0.5mL, preservative free (Fluarix; FluLaval; Fluzone) ages 6mo and older (Afluria) 3 years and older 12/08/2021,12/03/2020,11/22/2020,2019,12/03/2019,01/03/2019,11/24/2017,1 02/14/2014,12/06/2005 Influenza trivalent, with preservative (Fluzone; Afluria) 6mo and older 11/27/2019,12/15/2014,12/06/2005 Influenza, Unspecified 12/14/2017 MMR, measles mumps and [...] PROCEDURE: HISTORICAL TONSILLECTOMY BREAST SURGERY 06/14/2011 PROCEDURE: MO UNLISTED PROCEDURE BREAST; COMMENT: augmentation WISDOM TOOTH EXTRACTION age18/ PROCEDURE: HISTORICAL WISDOM TEETH EXTRACTION OTHER SURGICAL [...] IBS Anxiety 05/14/2014 DX:Anxiety Breast cancer, right ([facility]/ C V24, [facility] V28) DX:Breast cancer, right (HCC ) Breast cancer (CMS/[facility] V24, [facility] V28) 11/06/2022 Family History Medical History [...] on file Sexual Orientation Not on file Last Filed Vital Signs Vital Sign Reading Time Taken Comments Blood Pressure 100/64 01/31/2025 1:07 PM EST Pulse 90 01/31/2025 1:07 PM EST Temperature 37 C (98.6 F) 08/13/2024 10:34 AM EDT Respiratory Rate - - Oxygen Saturation 99% 01/31/2025 1:07 PM EST Inhaled Oxygen Concentration - - Weight 67.6 kg (149 lb) 01/31/2025 1:07 PM EST Height 154.9 cm (5' 1 ) 08/13/2024 10:34 AM EDT Body Mass Index 28.15 08/13/2024 10:34 AM EDT Plan of Treatment Health Maintenance Due Date Last Done Comments Breast Cancer Screening 1982 Hepatitis A Vaccines (1 of 2 - Risk 2-dose series) 2001 Pneumococcal Vaccine: Pediatrics (0 to 5 Years) and At-Risk Patients (6 to 49 Years) (1 of 2 - PCV) 2001 HPV Vaccines (3 - Risk 3-dose series) 09/21/2007 05/22/2007, 03/20/2007 Cervical Cancer Screening: Pap Smear 11/13/2016 11/13/2013 Social Influencers of Health Screening 01/16/2022 COVID-19 Vaccine ( season) 2024 06/15/2020, 05/18/2020, 04/02/2020, Additional history exists Influenza Vaccine (#1) 2024 , 12/08/2021, 12/08/2021, Additional history exists DTaP,Tdap,and Td Vaccines (9 - Td or Tdap) 10/26/2026 10/26/2016, 01/14/2008, 09/03/1996, Additional history exists Cholesterol Screening (Lipid Panel) 08/13/2029 08/13/2024, 08/09/2022 RSV Immunization Adult Patients (1 - 1-dose 75+ series) 2057 HIB Vaccines Aged Out 08/14/1987, 08/14/1987 No lo nger eligible based on patient's age to complete this topic IPV Vaccines Completed 08/14/1987, 1988, 10/15/1983, Additional history exists MMR Vaccines Completed 07/03/1995, 05/15/1983 Hepatitis B Vaccines Completed 05/31/2004, 01/14/2003, 12/13/1995, Additional history exists HIV Screening Completed 09/14/2023, 09/14/2023 Hepatitis C Screening Completed 09/14/2023 Depression Screening Completed 01/31/2025 Meningococcal ACWY Vaccine Aged Out N o [...] PM EST Lymph node enlargement Sinus pressure CBC WITH AUTO DIFFERENTIAL Routine 01/31/2025 1:38 PM EST Neck pain Lymph node enlargement C-REACTIVE PROTEIN Routine 01/31/2025 1: 38 PM EST Neck pain Lymph node enlargement CBC AND DIFFERENTIAL Routine 01/31/2025 1:38 PM EST Neck pain Lymph node enlargement LIPID PANEL WITH REFLEX TO DIRECT LDL Routine 08/13/2024 11:04 AM EDT Screening, lipid HEPATITIS C SCREENING Routine 09/14/2023 HIV SCREENING Routine 09/14/2023 PAP SMEAR Routine 11/13/2013 from Last 3 Months or Most Recently Relevant to Health Maintenance Results * XR Paranasal Sinuses 3+ Views [...] Signed Date: 01/31/2025 18:53 ET Workstation ID: [id number] Transcribed By: Self Edit Transcribed Date: 01/31/2025 [...] Signed Date: 01/31/2025 18:53 ET Workstation ID: [id number] Transcribed By: Self Edit Transcribed Date: 01/31/2025 18:53 ET Joshua WHITE IMG XR PROCEDURES Final Result * (ABNORMAL) CBC auto differential (01/31/2025 1:38 PM EST) WBC 5.9 4.8 - 10.8 K/[facility] LAB HEMETOLOGY METHOD 01/31/2025 5:40 PM [facility] RBC 4.30 3.80 - 4.80 M/mcL LAB HEMETOLOGY METHOD 01/31/2025 5:40 PM [facility] Hemoglobin 13.0 11.5 - 16.0 g/dL LAB HEMETOLOGY METHOD 01/31/2025 5:40 PM [facility] Hematocrit 39.3 35.0 - 47.0 % LAB HEMETOLOGY METHOD 01/31/2025 5:40 PM [facility] MCV 92.5 79.0 - 98.0 FL LAB HEMETOLOGY METHOD 01/31/2025 5:40 PM [facility] MCH 30.6 27.0 - 32.0 pcg LAB HEMETOLOGY METHOD 01/31/2025 5:40 PM [facility] MCHC 33.1 32.0 - 37.0 g/dL LAB HEMETOLOGY METHOD 01/31/2025 5:40 PM [facility] RDW 13.1 11.0 - 15.0 % LAB HEMETOLOGY METHOD 01/31/2025 5:40 PM [facility] Platelets 222 130 - 400 K/mcL LAB HEMETOLOGY METHOD 01/31/2025 5:40 PM [facility] MPV 10.5 7.0 - 11.0 FL LAB HEMETOLOGY METHOD 01/31/2025 5:40 PM [facility] NRBC 0.0 <1.0 % LAB HEMETOLOGY METHOD 01/31/2025 5:40 PM [facility] NRBC Absolute 0.00 <0.10 K/mcL LAB HEMETOLOGY METHOD 01/31/2025 5:40 PM [facility] Neutrophils Relative 55.8 % LAB HEMETOLOGY METHOD 01/31/2025 5:40 PM [facility] Lymphocytes Relative 35.4 % LAB HEMETOLOGY METHOD 01/31/2025 5:40 PM EST [facility] Monocytes Relative 5.3 % LAB HEMETOLOGY METHOD 01/31/2025 5:40 PM [facility] Eosinophils Relative 2.4 % LAB HEMETOLOGY METHOD 01/31/2025 5:40 PM [facility] Basophils Relative 0.3 % LAB HEMETOLOGY METHOD 01/31/2025 5:40 PM [facility] Immature Granulocytes Relative 0.8 % LAB HEMETOLOGY METHOD 01/31/2025 5:40 PM [facility] Neutrophils Absolute 3.29 1.50 - 7.00 K/mcL LAB HEMETOLOGY METHOD 01/31/2025 5:40 PM [facility] Lymphocytes Absolute 2.09 1.00 - 5.00 K/mcL LAB HEMETOLOGY METHOD 01/31/2025 5:40 PM [facility] Monocytes Absolute 0.31 0.20 - 1.00 K/mcL LAB HEMETOLOGY METHOD 01/31/2025 5:40 PM [facility] Eosinophils Absolute 0.14 0.00 - 0.50 K/mcL LAB HEMETOLOGY METHOD 01/31/2025 5:40 PM [facility] Basophils Absolute 0.02 0.00 - 0.20 K/mcL LAB HEMETOLOGY METHOD 01/31/2025 5:40 PM [facility] Immature Granulocytes Absolute 0.05(H) 0.00 - 0.03 K/mcL LAB HEMETOLOGY METHOD 01/31/2025 5:40 PM [facility] Blood Venous blood specimen / Unknown Venipuncture / Unknown 01/31/2025 1:38 PM EST 01/31/2025 1:45 PM EST Joshua WHITE LAB BLOOD ORDERABLES Final Res ult Performing Organization Address City/[facility]/ZIP Co de Phone Number [facility] [address] [place] [address], * C-reactive protein (01/31/2025 1:38 PM EST) C-Reactive Protein <0.50 <=0.50 mg/dL 01/31/2025 5:52 PM EST [facility] Blood Venous blood specimen / Unknown Venipuncture / Unknown 01/31/2025 1:38 PM EST 01/31/2025 1:45 PM EST Joshua WHITE LAB BLOOD ORDERABLES Final Res ult Performing Organization Address [facility]/ZIP Co de Phone Number [facility] [address] [place] [address], [place] [phone] * (ABNORMAL) Lipid panel with reflex to direct LDL (08/13/2024 11:04 AM EDT) Cholesterol 215(H) 0 - 200 mg/dL LAB CHEMISTRY METHOD 08/13/2024 2:19 PM EDT [facility] Triglycerides 92 0 - 150 mg/dL LAB CHEMISTRY METHOD 08/13/2024 2:19 PM EDT [facility] HDL 92 >=40 mg/dL LAB CHEMISTRY METHOD 08/13/2024 2:19 PM EDT [facility] LDL Calculated 105(H) 0 - 100 mg/dL LAB CHEMISTRY METHOD 08/13/2024 2:19 PM EDT [facility] VLDL Cholesterol Henrry 18.4 mg/dL LAB CHEMISTRY METHOD 08/13/2024 2:19 PM EDT [facility] Non HDL Chol. (LDL+VLDL) 123 <145 mg/dL LAB CHEMISTRY METHOD 08/13/2024 2:19 PM EDT [facility] Chol/HDL Ratio 2.3 0.0 - 4.4 LAB CHEMISTRY METHOD 08/13/2024 2:19 PM EDT [facility] Blood Venous blood specimen / Unknown Venipuncture / Unknown 08/13/2024 11:04 AM EDT 08/13/2024 11:04 AM EDT C Neto Baregr MD LAB BLOOD ORDERABLES Final Res ult [facility] [address] [place] [address], * HIV Screening (09/14/2023) HIV Screening abstracted Historical Provider HEALTH MAINTENANCE Final Result * Hepatitis C Screening (09/14/2023) Hepatitis C Screening abstracted [facility] Provider HEALTH MAINTENANCE Final Result * Pap Smear (11/13/2013) Pap smear negative, abstracted Historical Provider HEALTH MAINTENANCE Final Result from Last 3 Months or Most Recently Relevant to Health Maintenance Insurance [facility]) Care Teams Accounts Receivable Coordinator Relationship Specialty Start Date End Date Dionna Barger MD [address] [place] [id number] PCP - General 12/23/02
== END 2025-02-01 08:28 | disposition home or self-care (01) ==
LOC: HO.US 08:27
PROVIDERS: PCP Pediatrics; Visit Provider Physician Assistant Medical
DX: M54.2 Cervicalgia (principal); R59.9 Enlarged lymph nodes, unspecified
CPT/HCPCS: 76536

== ENCOUNTER → 2025-02-01 08:34 | Outpatient (BNV) | payer BC, SELFPAY | PROVIDERS: PCP Pediatrics; Visit Provider Radiology Diagnostic Radiology | DX: R59.0 Localized enlarged lymph nodes (principal) | CPT/HCPCS: 76536 ==